=== PATIENT | male | born 1930 | race Caucasian/White ===

== ENCOUNTER 2016-10-18 20:24 | Inpatient (IN) | payer OTHER, MEDICAID ==
[~2016-10-18] VITALS: Ht 172.7 cm; Wt 75.0 kg
[2016-10-18 18:30] VITALS: Ht 172.7 cm; Wt 75.0 kg
--- NOTE | 2016-10-18 18:52 | RADRPT ---
PROCEDURE: XR Chest. CLINICAL INDICATION: Shortness of breath. TECHNIQUE: Single frontal view. COMPARISON: None. FINDINGS: The right lung is clear. There is air space disease throughout the left lung. There is elevation o f the left hemidiaphragm or a left diaphragmatic hernia. The heart size is normal. There is a tracheostomy tube. There is no pleural effusion. There is no pneumothorax. IMPRESSION: 1. Pneumonia throughout the left lung. 2. Elevation of the left hemidiaphragm or left diaphragmatic hernia. 3. Tracheostomy tube. RPTAT: QQ .To Galeana MD, MD Date Time Electronically viewed and signed by .To Galeana MD, on 10/18/2016 18:52 .R/
[2016-10-18 19:06] VITALS: TEMP 96.9
[2016-10-18 19:18] LABS: ADD SCAN DIFF NO
[2016-10-18 19:20] LABS: BASOPHIL # 0.1 10^3/ul (0.0-0.1); BASOPHILS % 0.3 % (0.0-2.0); EOSINOPHILS # 0.1 10^3/ul (0.0-0.5); EOSINOPHILS % 0.6 % (0.0-7.0); HEMATOCRIT 35.4 % (42.0-52.0); HEMOGLOBIN 10.7 g/dl (14.0-18.0); LYMPHOCYTES # 1.5 10^3/ul (0.8-2.9); LYMPHOCYTES % 8.4 % (15.0-51.0); MEAN CORPUSCULAR HEMOGLOBIN 28.5 pg (29.0-33.0); MEAN CORPUSCULAR HGB CONC 30.2 g/dl (32.0-37.0); MEAN CORPUSCULAR VOLUME 94.4 fl (82.0-101.0); MEAN PLATELET VOLUME 9.2 fl (7.4-10.4); MONOCYTE # 1.2 10^3/ul (0.3-0.9); MONOCYTES % 6.6 % (0.0-11.0); NEUTROPHIL # 14.8 10^3/ul (1.6-7.5); NEUTROPHILS % 83.1 % (39.0-77.0); PLATELET COUNT 414 10^3/UL (140-415); RED BLOOD COUNT 3.75 10^6/ul (4.70-6.10); RED CELL DISTRIBUTION WIDTH 17.2 % (11.5-14.5); WHITE BLOOD COUNT 17.8 10^3/ul (4.8-10.8)
[2016-10-18 19:33] LABS: ALBUMIN 2.8 g/dl (3.3-4.9); CHLORIDE 95 mmol/L (97-110)
[2016-10-18 19:34] LABS: POTASSIUM 4.3 mmol/L (3.5-5.1); SODIUM 136 mmol/L (135-144)
[2016-10-18 19:35] LABS: INR 1.1; PROTIME 14.2 Sec (12.2-14.2); PT RATIO 1.1
[2016-10-18 19:36] LABS: ALANINE AMINOTRANSFERASE 22 IU/L (13-69); ALBUMIN/GLOBULIN RATIO 0.66; ALKALINE PHOSPHATASE 103 IU/L (42-121); ANION GAP 15 (8-16); ASPARTATE AMINO TRANSFERASE 18 IU/L (15-46); BILIRUBIN,INDIRECT 0.1 mg/dl (0-1.1); BILIRUBIN,TOTAL 0.1 mg/dl (0.2-1.3); BLOOD UREA NITROGEN 25 mg/dl (7-20); CARBON DIOXIDE 30 mmol/L (21-31); CREATININE 0.49 mg/dl (0.61-1.24); PARTIAL THROMBOPLASTIN TIME 27.8 Sec (25.0-35.0)
[2016-10-18 19:37] LABS: CALCIUM 8.9 mg/dl (8.4-10.2); GLUCOSE 117 mg/dl (70-220)
[2016-10-18 19:56] LABS: TROPONIN-I < 0.012 ng/ml (0.00-0.12)
--- NOTE | 2016-10-18 20:21 | ERA ---
ER Documentation Chief Complaint Date/Time DATE: 10/18/16 TIME: 20:18 Chief Complaint bib ems for turning blue and being unresponsive at [facility] HPI Patient is an 86-year-old male with atrial fibrillation, COPD, stroke, and hypertension who presents with rest. The patient was brought in by ambulance. He had CPR performed by the nurse at the facility. He had turned blue and had no pulses for 60 seconds per the paramedics. Upon review of old medical records this is the patient's first visit to the emergency department. His primary doctor is Dr. Lawrence. Please note the history and physical exam is limited secondary to the patient's ability to give a history. ROS All systems reviewed and are negative except as per history of present illness. Medications Home Meds Reported Medications Tramadol Hcl* (Ultram*) 50 Mg Tablet, 50 MG GTB Q6 Y for SEVERE PAIN LEVEL 7-10 , TAB 10/18/16 Acetaminophen* (Acetaminophen*) 650 Mg Tablet, 650 MG GTB 30 MIN PRIOR Y for PAIN AND OR ELEVATED TEMP, #30 TAB 30 MIN PRIOR TO TRACH CHANGE 10/18/16 Acetaminophen* (Acetaminophen*) 650 Mg Tablet, 650 MG GTB Q4 Y for PAIN AND OR ELEVATED TEMP, #30 TAB 10/18/16 Acetaminophen* (Acetaminophen*) 650 Mg Tablet, 650 MG GTB BID Y for PAIN AND OR ELEVATED TEMP, #30 TAB 10/18/16 Cran/Vitc/Mannose/Inulin/Brom (Uti-Stat Liquid) 3,875 Mg/30 Ml Liquid, 3875 MG GTB DAILY 10/18/16 Ascorbic Acid* (Vitamin C* Liq) 500 Mg/5 Ml Syrup, 500 MG GTB DAILY, ML 10/18/16 Budesonide (Pulmicort) 0.5 Mg/2 Ml Nebu, 0.5 MG INHALATION BID, #60 AMP 10/18/16 Potassium Chloride* (Potassium Chloride*) 20 Meq/15 Ml Liquid, 20 MEQ GTB DAILY , ML 10/18/16 Chlorhexidine Gluconate (Peridex) 473 Ml Mouthwash, 15 ML MM Q12, BOTTLE 10/18/16 Clonidine Hcl* (Clonidine Hcl*) 0.1 Mg Tab, 0.1 MG GTB Q6 Y for ELEVATED BLOOD PRESSURE, TAB FOR SBP ABOVE 160 10/18/16 Docusate Sodium* (Colace*) 100 Mg Capsule, 100 MG GTB BID, #60 CAP 10/18/16 Bisacodyl (Dulcolax) 10 Mg Supp.rect, 10 MG RC PRN Y for CONSTIPATION, SUPP.RECT 10/18/16 Enoxaparin Sodium* (Enoxaparin Sodium*) 40 Mg/0.4 Ml Syringe, 40 MG SC DAILY, SYR 10/18/16 Na Phos,M-B/Na Phos,Di-Ba (ENEMA READY TO USE) 135 Ml Enema, 135 ML RC PRN Y for CONSTIPATION, ENEMA 10/18/16 Tamsulosin Hcl* (Flomax*) 0.4 Mg Cap.er.24h, 0.4 MG GTB DAILY, CAP 10/18/16 Furosemide* (Furosemide*) 20 Mg Tablet, 10 MG GTB DAILY, #60 TAB 10/18/16 Metoprolol Tartrate* (Lopressor*) 25 Mg Tab, 12.5 MG GTB BID, #60 TAB HOLD FOR SBP BELOW 110 OR HR BELOW 60 10/18/16 Magnesium Hydroxide* (Milk Of Magnesia*) 400 Mg/5 Ml Oral.susp, 30 ML GTB DAILY , ML 10/18/16 Calcium Carbonate/Vitamin D3 (OYSTER SHELL 500 MG + VIT D TB) 1 Each Tablet, 1 EACH GTB DAILY, TAB 10/18/16 Pantoprazole* (Protonix*) 40 Mg Tablet.dr, 40 MG GTB DAILY, TAB 10/18/16 Baclofen* (Baclofen*) 10 Mg Tablet, 5 MG GTB Q8 Y for MUSCLE SPASMS, TAB 10/18/16 Amlodipine Besylate* (Norvasc*) 5 Mg Tablet, 5 MG GTB DAILY, TAB 10/18/16 Amiodarone Hcl* (Amiodarone Hcl*) 200 Mg Tablet, 200 MG GTB DAILY, #30 TAB 10/18/16 Albuterol Sulfate* (Albuterol Sulfate* Neb) 0.083%-3 Ml Neb, 2.5 MG NEB Q6 Y for WHEEZING AND SOB, #30 VIAL 10/18/16 Albuterol Sulfate* (Albuterol Sulfate* Neb) 0.083%-3 Ml Neb, 2.5 MG NEB Q3H Y for WHEEZING AND SOB, #30 VIAL 10/18/16 Lactobac. No.33/B.breve,Longum (Lacto-Pectin Capsule) 1 Each Capsule, 1 EACH GTB BID, CAP 10/18/16 Allergies Allergies: Coded Allergies: morphine (Unverified Allergy, Unknown, PT FAMILY MEMBER [employer]YS [place] LOWE HAS IT LISTED A ALLERGY, 10/18/16) PMhx/Soc Positive for COPD, stroke, hypertension, and atrial fibrillation FmHx Unable to obtain Physical Exam Vitals Vital Signs Date Time Temp Pulse Resp B/P Pulse Ox O2 Delivery O2 Flow Rate FiO2 10/18/16 19:06 96.9 67 40 148/92 92 10.0 10/18/16 18:49 92 10.0 98 10/18/16 18:30 64 40 148/92 86 Physical Exam Const: No acute distress Head: Atraumatic Eyes: Normal Conjunctiva ENT: Normal External Ears, Nose and Mouth. Neck: Tracheostomy in place Resp: Decreased breath sounds on the left side Cardio: Regular rate and rhythm, no murmurs Abd: Soft, non tender, non distended. Normal bowel sounds Skin: Pale Back: No midline or flank tenderness Ext: No cyanosis, or edema Neur: Awake Result Diagram: 10/18/16 1855 10/18/16 185 Results 24 hrs Laboratory Tests Test 10/18/16 18:55 White Blood Count 17.810^3/ul Red Blood Count 3.7510^6/ul Hemoglobin 10.7g/dl Hematocrit 35.4% Mean Corpuscular Volume 94.4fl Mean Corpuscular Hemoglobin 28.5pg Mean Corpuscular Hemoglobin Concent 30.2g/dl Red Cell Distribution Width 17.2% Platelet Count 93762^3/UL Mean Platelet Volume 9.2fl Neutrophils % 83.1% Lymphocytes % 8.4% Monocytes % 6.6% Eosinophils % 0.6% Basophils % 0.3% Nucleated Red Blood Cells % 0.0/100WBC Neutrophils # 14.810^3/ul Lymphocytes # 1.510^3/ul Monocytes # 1.210^3/ul Eosinophils # 0.110^3/ul Basophils # 0.110^3/ul Nucleated Red Blood Cells # 0.010^3/ul Prothrombin Time 14.2Sec Prothrombin Time Ratio 1.1 INR International Normalized Ratio 1.10 Activated Partial Thromboplast Time 27.8Sec Sodium Level 136mmol/L Potassium Level 4.3mmol/L Chloride Level 95mmol/L Carbon Dioxide Level 30mmol/L Anion Gap 15 Blood Urea Nitrogen 25mg/dl Creatinine 0.49mg/dl Glucose Level 117mg/dl Lactic Acid Level 1.6mmol/L Calcium Level 8.9mg/dl Total Bilirubin 0.1mg/dl Direct Bilirubin 0.00mg/dl Indirect Bilirubin 0.1mg/dl Aspartate Amino Transf (AST/SGOT) 18IU/L Alanine Aminotransferase (ALT/SGPT) 22IU/L Alkaline Phosphatase 103IU/L Troponin I < 0.012ng/ml Total Protein 7.0g/dl Albumin 2.8g/dl Globulin 4.20g/dl Albumin/Globulin Ratio 0.66 Current Medications Medications (Trade) Dose Ordered Sig/Nishant Route PRN Reason Start Time Stop Time Status Last Admin Dose Admin Sodium Chloride 2330 ml 2,330 ml BOLUS OVER 2 HOURS STAT IV* 10/18/16 19:13 10/18/16 19:15 DC 10/18/16 20:15 Cefepime HCl 50 ml @ 100 mls/hr ONCE STAT IVPB 10/18/16 19:13 10/18/16 19:42 DC 10/18/16 20:15 Vancomycin HCl (Vancocin) 250 ml @ 125 mls/hr ONCE ONCE IVPB 10/18/16 19:30 10/18/16 21:29 Procedures/MDM EKG read by me: Rate/Rhythm: Regular rate and rhythm at a rate of 69 Intervals: Normal Impression: No evidence of ischemia or arrhythmia Chest x-ray shows left-sided pneumonia per radiology. Admit MDM: Patient's infectious symptoms have not stabilized and the patient is at risk of rapid decompensation. The patient will be admitted for careful hydration, antibiotic therapy, and infectious source control. Severe Sepsis criteria: Infectious source: Pneumonia End organ damage indicated by: Respiratory failure Sepsis Management: Time of recognition of sepsis: 18:52 Within 3 hours of recognition: Blood cultures x 2 before broad-spectrum antibiotics: Yes 30 ml/kg NS bolus Completed Initial lactate 1.6 Repeat lactate pending Time of recognition of septic shock: No septic shock Septic Shock Assessment: Any lactic acid > 4.0 No Persistent hypotension (SBP < 90 or 40 mmHg drop, MAP < 65) despite 30 mL/kg IV fluid bolus No Volume Re-assessment for Septic Shock (post 30 ml/kg bolus): No septic shock at this time Persistent Hypotension Treatment: Comfort care No Central line Not Required Vasopressor started Not required I considered further perfusion assessment with CVP measurement, SCVO2, bedside ultrasound volume assessment, passive leg raise, trial of further fluid bolus. And proceeded with 30 ml/kg fluid bolus of NSS, broad spectrum antibiotics, and admission. The patient was also placed on a ventilator and an ABG is obtained. Accepting Care Team Current data and ongoing care discussed. Admitting Physician: [facility] Double Spindle Shaper Operator(s): None Outstanding Data: Culture results and repeat lactic acid Critical Care: Critical care time 35 minutes excluding all billable procedures Emergent fluid management while maintaining close respiratory support. Provision of immediate and broad-spectrum antibiotic therapy. Simultaneous assessment for possible sources in order to direct targeted therapy. Consideration for invasive and chemical support to prevent cardiopulmonary collapse. Departure Diagnosis: Primary Impression: Respiratory failure Qualified Code: J96.00 - Acute respiratory failure, unspecified whether with hypoxia or hypercapnia Additional Impressions: Shortness of breath Severe sepsis Pneumonia Qualified Code: J18.9 - Pneumonia of left lung due to infectious organism, unspecified part of lung Anemia Qualified Code: D64.9 - Anemia, unspecified type Leukocytosis Qualified Code: D72.829 - Leukocytosis, unspecified type Condition: Serious KEEGAN CORMIER MD October 18, 2016 20:21
[~2016-10-18 20:24] MED LIST: ACET-2047 GTB; ALBU2.5V3 NEB; AMIO200T2 GTB; AMLO5TAB4 GTB; ASCO500S2 GTB; BACL10TA GTB; BISA10SU55 RC; BUDE0.5A6 INHALATION; CALC-277 GTB; CEFEPIME 2GM/50 ML (PMX) 50 ML IVPB STA; CHLO473M4 MM; CLON-379 GTB; CRAN3875 GTB; DOCU-144 GTB; ENOX40DI2 SC; FURO20TA3 GTB; LACT1CAP67 GTB; MAGN400O4 GTB; METO-448 GTB; NA P135E RC; PANT40TA3 GTB; POTA20LI5 GTB; SODIUM CHLORIDE 0.9% 1L BAG IV* STA; TAMS-14 GTB; TRAM-40 GTB; VANCOMYCIN 1 GM (PMX) 250 ML IVPB ONE
[2016-10-18] MEDS ORDERED: ONDANSETRON 4 MG INJ IV PRN (20:30)
[2016-10-18] MEDS ORDERED: ACETAMINOPHEN 325 MG TAB PO PRN (20:30)
[2016-10-18 21:00] LABS: Arterial Base Excess 3.5 mmol/L (-3.0-3); Arterial COHb 0.3 % (0.0-3.0); Arterial Fraction of Oxyhgb 96.8 % (93.0-99.0); Arterial HCO3 28.4 mmol/L (22.0-26.0); Arterial MetHb 0.3 % (0.0-1.5); Arterial Total Hemglobin 11.2 g/dl (12.0-18.0); MODE VENT - AC
[2016-10-18 21:27] LABS: ADD UMIC NO; URINE BILIRUBIN (Dip) NEGATIVE (NEGATIVE); URINE BLOOD (Dip) NEGATIVE (NEGATIVE); URINE COLOR LT. YELLOW (YELLOW); URINE GLUCOSE (Dip) NEGATIVE (NEGATIVE); URINE KETONES (Dip) NEGATIVE (NEGATIVE); URINE LEUKOCYTE ESTERASE (Dip) NEGATIVE (NEGATIVE); URINE NITRITE (Dip) NEGATIVE (NEGATIVE); URINE TOTAL PROTEIN (Dip) NEGATIVE (NEGATIVE); URINE UROBILINOGEN (Dip) 0.2 E.U./dL (0.1-1.0)
[2016-10-18 22:52] VITALS: PULSE 48
[2016-10-18] MEDS ORDERED: BISACODYL 10 MG SUPP PR PRN (23:00)
[2016-10-18] MEDS ORDERED: BACLOFEN 10 MG TAB GTB PRN (23:00)
[2016-10-18] MEDS ORDERED: NA PHOSPHATE/BIPHOS 133 ML ENEMA PR PRN (23:00)
[2016-10-18] MEDS ORDERED: ACETAMINOPHEN 325 MG TAB GTB PRN ×3 (23:00)
[2016-10-18] MEDS ORDERED: ALBUTEROL 0.083% (NEB) 2.5 MG/3 ML AMP NEB PRN ×2 (23:00)
[2016-10-18 23:38] VITALS: RESP 15
[2016-10-19] VITALS (26 sets, daily range): BP systolic 90–141; BP diastolic 50–72; PULSE 50–87; RESP 14–59
[2016-10-19] MEDS ORDERED: DEXTROSE 50% 50 ML SYRINGE IV PRN ×2 (00:30)
[2016-10-19] MEDS ORDERED: GLUCOSE GEL 15 GRAM TUBE BUCCAL PRN (00:30)
[2016-10-19] MEDS ORDERED: GLUCAGON 1 MG INJ IM PRN (00:30)
[2016-10-19] MEDS ORDERED: ACETAMINOPHEN 650MG/20.3ML CUP GTB PRN (00:30)
[2016-10-19] MEDS ORDERED: GLUCOSE GEL 15 GRAM TUBE PO PRN ×2 (00:30)
[2016-10-19] MEDS ORDERED: FUROSEMIDE 20 MG TAB GTB SCH ×2 (06:00)
[2016-10-19] MEDS: INSULIN ASPART [NOVOLOG] 3 ML PEN SC SCH ×4 (06:00→18:00)
[2016-10-19] MEDS: PANTOPRAZOLE (EC) 40 MG TAB PO SCH (06:23)
[2016-10-19] MEDS: PIPER-TAZO 3.375 GM IV (PMX) 100 ML IVPB SCH ×3 (06:23→21:27)
[2016-10-19 07:27] LABS: ADD SCAN DIFF NO
[2016-10-19 07:35] LABS: BASOPHIL # 0.1 10^3/ul (0.0-0.1); BASOPHILS % 0.4 % (0.0-2.0); EOSINOPHILS # 0.1 10^3/ul (0.0-0.5); EOSINOPHILS % 0.5 % (0.0-7.0); HEMATOCRIT 31.7 % (42.0-52.0); LYMPHOCYTES # 1.6 10^3/ul (0.8-2.9); LYMPHOCYTES % 10.5 % (15.0-51.0); MEAN CORPUSCULAR HEMOGLOBIN 29.3 pg (29.0-33.0); MEAN CORPUSCULAR HGB CONC 31.5 g/dl (32.0-37.0); MEAN PLATELET VOLUME 9.8 fl (7.4-10.4); MONOCYTE # 0.8 10^3/ul (0.3-0.9); MONOCYTES % 5.3 % (0.0-11.0); NEUTROPHIL # 12.3 10^3/ul (1.6-7.5); NEUTROPHILS % 82.1 % (39.0-77.0); PLATELET COUNT 386 10^3/UL (140-415); RED BLOOD COUNT 3.41 10^6/ul (4.70-6.10); RED CELL DISTRIBUTION WIDTH 17.1 % (11.5-14.5)
[2016-10-19 07:55] LABS: CREATININE 0.45 mg/dl (0.61-1.24)
[2016-10-19 07:56] LABS: CALCIUM 8.5 mg/dl (8.4-10.2)
[2016-10-19] MEDS ORDERED: POTASSIUM CHLORIDE 20 MEQ POWDER FOR ORAL SOLN GTB SCH (09:00)
[2016-10-19] MEDS: BUDESONIDE (NEB) 0.5MG/2ML AMP HHN SCH ×2 (09:00→20:00)
[2016-10-19] MEDS ORDERED: POTASSIUM CHLORIDE (1.33 MEQ/ML PO SYG) GTB SCH (09:00)
[2016-10-19] MEDS ORDERED: ASCORBIC ACID 100 MG/ML 120ML BTL GTB SCH (09:00)
[2016-10-19] MEDS ORDERED: NON-FORMULARY/PATIENT OWN MED (Cran/Vitc/Mannose/Inulin/Brom (Uti-Stat Liquid) 3,875 MG) GTB SCH (09:00)
[2016-10-19] MEDS: MAGNESIUM HYDROXIDE 30ML CUP GTB SCH (09:41)
[2016-10-19] MEDS: CHLORHEXIDINE GLUCONATE 15 ML UD CUP MM SCH ×2 (09:41→21:00)
[2016-10-19] MEDS: LACTOBACILLUS RHAMNOSUS CAP PO SCH ×2 (09:42→21:27)
[2016-10-19] MEDS: AMLODIPINE 5 MG TAB GTB SCH (09:42)
[2016-10-19] MEDS: AMIODARONE 200 MG TAB GTB SCH (09:42)
[2016-10-19] MEDS: METOPROLOL 25 MG TAB GTB SCH ×2 (09:43→21:00)
[2016-10-19] MEDS: ASCORBIC ACID 500 MG TAB GTB SCH (09:43)
[2016-10-19] MEDS: TAMSULOSIN (SR) 0.4 MG CAP PO SCH (09:44)
[2016-10-19] MEDS: ENOXAPARIN 40 MG/0.4 ML SYG SC SCH (09:53)
[2016-10-19] MEDS: NYSTATIN 30 GM POWDER BTL TOP SCH ×2 (11:00→21:27)
[2016-10-19] MEDS: traMADol 50 MG TAB GTB PRN (12:31)
--- NOTE | 2016-10-19 13:09 | HP ---
DATE OF ADMISSION: 10/18/2016 CHIEF COMPLAINT ON ADMISSION: Respiratory failure, acute on chronic. HISTORY OF PRESENT ILLNESS: This is an 86-year-old male with known paroxysmal atrial fibrillation, COPD, severe cervical stenosis status post multilevel decompressive laminectomy at [facility] who unfortunately ended up having respiratory failure requiring tracheostomy and jejunostomy tu be placement, history of TIA, pulmonary emboli, and pneumothorax previously who apparently has been at a subacute facility in [place], per the records, was admitted there on 09/29/2016, and yesterd dell was found to be in acute on chronic respiratory failure. He actually had a respiratory arrest re quiring CPR that was done. Per records, the patient was severely cyanotic, no pulse for approximate ly 1 minute per paramedics. The patient was resuscitated, placed on the ventilator, and transferred to [facility]. On his evaluation here, he was found to have leukocytosis and also on his chest x-ray, he has a left white lung white out. He was diagnosed with pneumonia and acute on chron ic respiratory failure. He was admitted on telemetry currently. This morning, he is awake. He is alert. He is mouthing some words. He reports pain. He has to be put on restraints because he has a tendency to reach for the trach. He has a C-spine collar in place. His respiratory status seems to be stable on the ventilator currently. A CT of the chest is pending, given his history of PE bef ore pneumothorax and now a left lung white out. He is on broad-spectrum antibiotics to cover for he althcare-associated or ventilator-associated pneumonia. He is on Zosyn and vancomycin currently. H e remains afebrile. ALLERGIES: MORPHINE. PAST MEDICAL HISTORY: 1. Chronic respiratory failure, status post tracheostomy and jejunostomy tube placement at [facility]. 2. Paroxysmal atrial fibrillation. 3. Hypertension. 4. Severe cervical stenosis status post cervical spine decompressive laminectomy, multilevel, also at [facility], apparently in the past month. 5. Previous pulmonary embolus and pneumothorax which is resolved. This is per [facility] records. 6. Benign prostatic hypertrophy. 7. Reported history of prostate cancer. 8. Chronic obstructive pulmonary disease. PAST SURGICAL HISTORY: Per report again from [facility] facility medical records: 1. Multilevel decompressive laminectomy. 2. PEG tube placement. 3. Status post tracheostomy. SOCIAL HISTORY: Unable to obtain from patient currently. REVIEW OF SYSTEMS: Unable to obtain from patient. He keeps mouthing pain. OUTPATIENT MEDICATIONS: 1. Albuterol nebulizer 2.5 mg q.3 hours p.r.n. wheezing or shortness of breath, and 2.5 mg schedule d every 6 hours. 2. Baclofen 5 mg q.8 hours. 3. Flomax 0.5 mg per G-tube daily. 4. Lovenox 40 mg subcutaneously daily. 5. Amiodarone 200 mg per G-tube daily. 6. Norvasc 5 mg per G-tube daily. 7. Clonidine 0.1 mg per G-tube every 6 hours as needed for systolic blood pressure above 160. 8. Lopressor 12.5 mg per G-tube twice daily. 9. Tylenol 650 mg per G-tube every 4 hours as needed for fever or pain. 10. Tramadol 50 mg p.o. q.6 hours p.r.n. severe pain. 11. Calcium vitamin D 1 tab p.o. daily. 12. Furosemide 10 mg per G-tube daily. 13. Potassium chloride 20 mEq per G-tube daily. 14. Pulmicort 0.5 mg inhaled twice daily. 15. Peridex q.12 hours. 16. Dulcolax 10 mg per rectum as needed for constipation daily. 17. Colace 100 mg per G-tube twice daily. 18. Lactobacillus 1 tab p.o. per G-tube twice daily. 19. Milk of magnesia 30 mL per G-tube daily. 20. Enema rectally as needed daily for constipation. 21. Protonix 40 mg per G-tube daily. 22. Vitamin C 500 mg per G-tube daily. 23. Uristat liquid daily. PHYSICAL EXAMINATION: VITAL SIGNS: Temperature is 97.5, pulse of 75, sinus rhythm, respiratory rate of 20, blood pressure is 141/72. The patient is satting 98% on 50% FIO2 on the vent. GENERAL: He is alert. He is awake. He seems to be answering questions appropriately, at least tri es to. HEENT: Pupils are equally round and reactive to light. Extraocular muscles are intact. Anicteric sclerae. NECK: No JVD noted; however, the patient does have a C-collar in place currently with a tracheostom y in place. LUNGS: He does have significant decreased breath sounds on the left side. Air movement is decent, but the patient is currently on ventilator. ABDOMEN: Soft, nontender, nondistended. PEG tube in place, tolerating feedings. EXTREMITIES: No edema, clubbing or cyanosis. 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 He is not really following com mands, but moving all his extremities and especially his upper extremity requiring restraints to be placed. Otherwise, he is mostly bed bound. LABORATORY DATA: ABG on admission did show some hypoxemia, pH of 7.42, pCO2 of 44, PaO2 of 98.9, by then the patient was already on the ventilator with FIO2 of 50%. CBC with a white blood cell count of 15.0, hemoglobin 10.0, hematocrit 31.7, platelet count of 388, and neutrophil percentage is 82.1 %. INR is 1.10, PT 14.2, PTT 27.8. Chemistry with a sodium of 135, potassium 4.0, chloride 100, bi carbonate 27, BUN 21, creatinine 0.45, glucose of 111, calcium of 8.5. Urinalysis is negative. Blo od cultures have been drawn and pending, respiratory cultures are pending. Urine culture is no grow th to date. RADIOLOGICAL DATA: Chest x-ray on admission shows pneumonia throughout the left lung, elevation of the left hemidiaphragm, or left diaphragmatic hernia. Tracheostomy tube in place. CT angiogram of the chest is pending for better evaluation. EKG on admission shows normal sinus rhythm at 69 beats per minute. He is also in normal sinus rhyth m on telemetry, currently, but he is noted to have episodes of bradycardia down to upper 40s. ASSESSMENT AND PLAN: This is an 86-year-old male with: 1. Acute on chronic respiratory failure, actually had episode of respiratory arrest requiring CPR, but rapidly resuscitated within 1 minute. The patient is currently on the ventilator. Will recheck his ABG in the next [address] angiogram is done and further adjustment to be done from there. Continue nebulizer treatment. Continue antibiotic treatment. Follow up on respiratory cult ures and continue pulmonary toilet. 2. Chronic obstructive pulmonary disease per record. Continue nebulizer treatments for now and the patient already on ventilatory support. 3. Paroxysmal atrial fibrillation, currently in sinus rhythm. He is on amiodarone which is to be c ontinued, and metoprolol is also continued as tolerated by blood pressure and heart rate. He also h as clonidine added p.r.n. 4. Status post cervical spine decompressive laminectomy, multilevel. The patient unfortunately is quadriparetic, status post respiratory failure, now trached, on ventilator. Will resume physical th erapy once the patient is more stable, apparently he was having some element of physical therapy at [facility] facility. He has a cervical collar in place. Per records from SNF, the patient has it removed when eating and also when bathing and also for skin check which will be continued here. Will clarify the length of time the cervical collar needs to stay in place with the [facility] facility staff. 4. Status post PEG tube placement for feeding. Continue G-tube feeding. Will add free water as ne eded. 5. Benign prostatic hypertrophy. Continue Flomax. Will put a Mireles catheter as needed. 6. Reported history of prostate cancer. 7. Per [facility] facility, previous pulmonary embolus and pneumothorax resolved. It is uncle ar which side. CT angiogram is pending for reevaluation and also will clarify with [facility] facility. Currently, the patient is on Lovenox DVT prophylactic doses. 8. Leukocytosis, likely secondary to hospital-acquired pneumonia versus ventilatory-associated pneu monia based on the chest x-ray with a left lung white out. Follow up on the CT angiogram. Continue IV antibiotics. 9. Pneumonia, likely healthcare-associated pneumonia versus ventilator-associated pneumonia. Hopef ully, not a major obstruction will be seen. CT angiogram pending for further evaluation. Will cons ult pulmonary as needed. 10. Prophylaxis. Protonix for GI prophylaxis and Lovenox for deep venous thrombosis prophylaxis fo r now until we clarify if the patient needs treatment dose. DISPOSITION: Patient is admitted to telemetry inpatient, continue IV antibiotics. Follow up on CAT scan of the chest. Dictated By: BETTINA GE/JING Conf#: [id number] DID#: [id number]
[2016-10-19] MEDS: VANCOMYCIN 1.5 GM in SOD CHLORIDE 0.9% 250 ML IVPB SCH (15:30)
[2016-10-19] MEDS ORDERED: VANCOMYCIN 1 GM (PMX) 250 ML IVPB SCH (23:00)
[2016-10-20] VITALS (38 sets, daily range): BP systolic 92–139; BP diastolic 50–75; PULSE 60–96; RESP 14–22
[2016-10-20] MEDS ORDERED: IOHEXOL 300MG/ML 150 ML BTL ONE (00:21)
[2016-10-20] MEDS ORDERED: SOD CHLORIDE 0.9% 100 ML ONE (00:21)
--- NOTE | 2016-10-20 03:16 | RADRPT ---
PROCEDURE: CTA Chest CLINICAL INDICATION: Respiratory failure. Shortness of breath. Left lung pneumonia. TECHNIQUE: Thin section spiral CT images were obtained through the vasculature of the chest during administration of 100 cc of Omnipaque-300 contrast material. Multiplanar reconstructions and 3-D m aximum intensity projection reconstructed images were performed. The images were reviewed on a PACS workstation. The total exam CTDI equals 11.14 mGy, and the total exam DLP equals 503.69 mGy-cm. One or more of the following dose reduction techniques were used: automated exposure control, adjust ment of the mA and/or kV according to patient size, or use of iterative reconstruction technique. COMPARISON: Chest x-ray from 10/18 FINDINGS: Endotracheal tube remains in good position. There are emphysematous changes of the lungs with hyperi nflation and hyperlucency is bilaterally. Left greater than right bibasilar atelectasis or infiltra phuong and small layering left pleural effusion. Left lung aeration appears improved compared with 7. Large linear opacity in the left upper lobe likely represents linear subsegmental atelectasis. B iapical scarring is seen. No definite endobronchial lesion or bronchiectasis. Aortic and coronary artery calcification. Tiny pericardial effusion. There is no evidence for pulmonary embolus or aor tic dissection. Mild cardiomegaly. Postsurgical changes of the cervical spine are partially seen. Old right rib fracture. Degenerative change of the spine. IMPRESSION: No evidence for pulmonary embolus or aortic dissection. Emphysema and left greater than right basil ar atelectasis or infiltrates and small layering left pleural effusion. Linear probable subsegmenta l atelectasis in the left upper lobe. Overall improved aeration of the left lung compared with 0 7. RPTAT: HLBE Physician Yanni Date Time Electronically viewed and signed by Physician Yanni on 10/20/2016 03:15 [email or web address]/
[2016-10-20] MEDS: INSULIN ASPART [NOVOLOG] 3 ML PEN SC SCH ×4 (05:09→17:48)
[2016-10-20] MEDS: PIPER-TAZO 3.375 GM IV (PMX) 100 ML IVPB SCH ×3 (05:09→21:12)
[2016-10-20] MEDS: PANTOPRAZOLE (EC) 40 MG TAB PO SCH (05:09)
[2016-10-20 06:54] LABS: ADD SCAN DIFF NO; BASOPHILS % 0.3 % (0.0-2.0); EOSINOPHILS # 0.4 10^3/ul (0.0-0.5); EOSINOPHILS % 3.4 % (0.0-7.0); HEMATOCRIT 30.3 % (42.0-52.0); HEMOGLOBIN 9.6 g/dl (14.0-18.0); LYMPHOCYTES # 1.2 10^3/ul (0.8-2.9); LYMPHOCYTES % 9.5 % (15.0-51.0); MEAN CORPUSCULAR HEMOGLOBIN 29.3 pg (29.0-33.0); MEAN CORPUSCULAR HGB CONC 31.7 g/dl (32.0-37.0); MEAN CORPUSCULAR VOLUME 92.4 fl (82.0-101.0); MEAN PLATELET VOLUME 9.2 fl (7.4-10.4); MONOCYTE # 0.7 10^3/ul (0.3-0.9); MONOCYTES % 5.4 % (0.0-11.0); NEUTROPHIL # 10.3 10^3/ul (1.6-7.5); NEUTROPHILS % 79.7 % (39.0-77.0); PLATELET COUNT 325 10^3/UL (140-415); RED BLOOD COUNT 3.28 10^6/ul (4.70-6.10); RED CELL DISTRIBUTION WIDTH 17.2 % (11.5-14.5); WHITE BLOOD COUNT 12.9 10^3/ul (4.8-10.8)
[2016-10-20 07:17] LABS: POTASSIUM 4.2 mmol/L (3.5-5.1)
[2016-10-20 07:19] LABS: CREATININE 0.55 mg/dl (0.61-1.24)
[2016-10-20 07:20] LABS: CALCIUM 8.3 mg/dl (8.4-10.2)
[2016-10-20 07:22] LABS: PHOSPHORUS 2.9 mg/dl (2.5-4.9)
[2016-10-20] MEDS: CHLORHEXIDINE GLUCONATE 15 ML UD CUP MM SCH ×2 (08:40→21:00)
[2016-10-20] MEDS: TAMSULOSIN (SR) 0.4 MG CAP PO SCH (08:40)
[2016-10-20] MEDS: MAGNESIUM HYDROXIDE 30ML CUP GTB SCH (08:40)
[2016-10-20] MEDS: ASCORBIC ACID 500 MG TAB GTB SCH (08:41)
[2016-10-20] MEDS: LACTOBACILLUS RHAMNOSUS CAP PO SCH ×2 (08:41→21:12)
[2016-10-20] MEDS: ENOXAPARIN 40 MG/0.4 ML SYG SC SCH (08:42)
[2016-10-20] MEDS: AMIODARONE 200 MG TAB GTB SCH (08:43)
[2016-10-20] MEDS: AMLODIPINE 5 MG TAB GTB SCH (08:44)
[2016-10-20] MEDS: METOPROLOL 25 MG TAB GTB SCH ×2 (08:44→21:11)
[2016-10-20] MEDS: NYSTATIN 30 GM POWDER BTL TOP SCH ×2 (08:45→21:12)
[2016-10-20] MEDS: BUDESONIDE (NEB) 0.5MG/2ML AMP HHN SCH ×2 (09:00→20:05)
--- NOTE | 2016-10-20 11:46 | PN ---
Date/Time of Note Date/Time of Note DATE: 10/20/16 TIME: 11:45 Assessment/Plan VTE Prophylaxis VTE Prophylaxis Intervention: LMWH Lines/Catheters IV C[facility]ter [facility] (from [facility] Saline Lock Urinary Cath still in place: No Assessment/Plan Assessment/Plan 86-year-old male with: 1. Acute on chronic respiratory failure, actually had episode of respiratory arrest requiring CPR, but rapidly resuscitated within 1 minute at [facility] CT angiogram negative for PE Continue nebulizer treatment. Continue antibiotic treatment. Follow up on respiratory cultures and continue aggressive pulmonary toilet. 2. Healthcare-associated Pneumonia versus ventilator-associated pneumonia. CTA negative for PE and confirming atelectasis +PNA Pulmonary toilet and IV abx to be continued Will consult pulmonary as needed. 3. Chronic obstructive pulmonary disease also seen on CTA chest at least moderate to severe COPD Continue nebulizer treatments Already on ventilatory support. 4. Paroxysmal atrial fibrillation, currently in sinus rhythm. In SR and on Amiodarone and metoprolol. 5. Status post cervical spine decompressive laminectomy, multilevel, C2 -C7 laminectomy and C2-T2 posterior fusion Unfortunately quadriparetic, status post respiratory failure, now trached, on ventilator. Resume physical therapy once the patient is more stable, Continue cervical collar, per records from SNF, the patient has it removed when eating and also when bathing and also for skin check which will be continued here. Will clarify the length of time the cervical collar needs to stay in place with the [facility] facility staff. 6. Status post PEG tube placement for feeding. Continue Tube feeding. Add free water as needed. 7. Benign prostatic hypertrophy. Continue Flomax. 8. Reported history of prostate cancer. 9. Per [facility] facility, previous pulmonary embolus and pneumothorax resolved. It is unclear which side. CT angiogram chest negative for PE Continue Lovenox DVT prophylactic doses. Prophylaxis. Protonix for GI prophylaxis and Lovenox for deep venous thrombosis prophylaxis. DISPOSITION: Continue IV antibiotics and Pulmonary toilet D/c plan back to subacute in 24 to 48 hrs. Subjective 24 Hr Interval Summary Free Text/Dictation Patient much improved No PE on CTA and confirming L>R atelectasis +/- infiltrates Afebrile and WBC trending down D/c plan back to SNF in 24 to 48 hrs Exam/Review of Systems Vital Signs Vitals Vital Signs Date Time Temp Pulse Resp B/P Pulse Ox O2 Delivery O2 Flow Rate FiO2 10/20/16 10:07 98.4 84 18 131/60 98 10/20/16 09:45 50 10/20/16 06:20 Trach Collar 10/18/16 19:06 10.0 Intake and Output 10/19/16 10/19/16 10/20/16 15:00 23:00 07:00 Intake Total 460 ml 660 ml Balance 460 ml 660 ml Exam Constitutional: alert, other (quadriparetic and attempting to talk even with trach in place ) Respiratory: diminished breath sounds (L>R lung ) Cardiovascular: nl pulses, regular rate and rhythm Gastrointestinal: non-tender, soft Musculoskeletal: nl extremities to inspection Extremities: normal pulses, other (no edema, clubbing or cyanosis ) Neurological: MEDICAL SUPPORT ASSISTANT II-XII intact, other (quadriparesis ) Results Result Diagram: 10/20/16 0644 10/20/16 0644 Results 24 hrs Laboratory Tests Test 10/19/16 12:01 10/19/16 18:24 10/20/16 00:11 10/20/16 05:07 Bedside Glucose 109 109 106 83 Test 10/20/16 06:44 White Blood Count 12.9 H Red Blood Count 3.28 L Hemoglobin 9.6 L Hematocrit 30.3 L Mean Corpuscular Volume 92.4 Mean Corpuscular Hemoglobin 29.3 Mean Corpuscular Hemoglobin Concent 31.7 L Red Cell Distribution Width 17.2 H Platelet Count 325 Mean Platelet Volume 9.2 Neutrophils % 79.7 H Lymphocytes % 9.5 L Monocytes % 5.4 Eosinophils % 3.4 Basophils % 0.3 Nucleated Red Blood Cells % 0.0 Neutrophils # 10.3 H Lymphocytes # 1.2 Monocytes # 0.7 Eosinophils # 0.4 Basophils # 0.0 Nucleated Red Blood Cells # 0.0 Sodium Level 133 L Potassium Level 4.2 Chloride Level 99 Carbon Dioxide Level 25 Anion Gap 13 Blood Urea Nitrogen 19 Creatinine 0.55 L Glucose Level 82 Hemoglobin A1c 5.3 Calcium Level 8.3 L Phosphorus Level 2.9 Magnesium Level 2.0 Medications Medications Current Medications Amiodarone HCl (Cordarone) 200 mg DAILY GTB Last administered on 10/19/16t 09:42 ; Admin Dose 200 MG; Start 10/19/16 at 09:00 Amlodipine Besylate (Norvasc) 5 mg DAILY GTB Last administered on 10/19/16 09: 42; Admin Dose 5 MG; Start 10/19/16 at 09:00 Baclofen (Lioresal) 5 mg Q8 PRN GTB MUSCLE SPASMS; Start 10/18/16 at 23:00 Bisacodyl (Dulcolax Supp) 10 mg PRN PRN CA CONSTIPATION; Start 10/18/16 at 23:00 Chlorhexidine Gluconate (Peridex) 15 ml Q12 MM Last administered on 10/20/16 08 :40; Admin Dose 15 ML; Start 10/19/16 at 09:00 Clonidine (Catapres) 0.1 mg Q6 PRN GTB ELEVATED BLOOD PRESSURE>150; Start at 23:00 Enoxaparin Sodium (Lovenox) 40 mg DAILY SC Last administered on 10/20/16 08:42 ; Admin Dose 40 MG; Start 10/19/16 at 09:00 Magnesium Hydroxide (Milk Of Mag) 30 ml DAILY GTB Last administered on 08:40; Admin Dose 30 ML; Start 10/19/16 at 09:00 Metoprolol Tartrate (Lopressor) 12.5 mg BID GTB Last administered on 10/19/16 09:43; Admin Dose 12.5 MG; Start 10/19/16 at 09:00 Sodium Biphosphate/ Sodium Phosphate (Fleet Enema) 133 ml DAILY PRN CA CONSTIPATION; Start 10/18/16 at 23:00 Pantoprazole (Protonix Tab) 40 mg DAILY@06 PO Last administered on 10/20/16 05: 09; Admin Dose 40 MG; Start 10/19/16 at 06:00 Tamsulosin HCl (Flomax) 0.4 mg DAILY PO Last administered on 10/20/16 08:40; Admin Dose 0.4 MG; Start 10/19/16 at 09:00 Tramadol HCl (Ultram) 50 mg Q6 PRN GTB SEVERE PAIN LEVEL 7-10 Last administered on 10/19/16 12:31; Admin Dose 50 MG; Start 10/18/16 at 23:00 Lactobacillus Acidophilus/ Rhamnosus 1 cap 1 cap BID PO Last administered on 08:41; Admin Dose 1 CAP; Start 10/19/16 at 09:00 Piperacillin Sod/ Tazobactam Sod (Zosyn 3.375gm/ 100 ml (Pmx)) 100 ml @ 200 mls /hr Q8 IVPB Last administered on 10/20/16 05:09; Admin Dose 200 MLS/HR; Start 10/19/16 at 06:00 Insulin Aspart (Novolog Insulin Pen) NOVOLOG *MODERATE* ALGORI... Q6 SC ; Start 10/19/16 at 00:00 Miscellaneous Information 1 ea NOTE XX ; Start 10/19/16 at 00:30 Glucose (Glutose) 15 gm Q15M PRN PO DECREASED GLUCOSE; Start 10/19/16 at 00:30 Glucose (Glutose) 22.5 gm Q15M PRN PO DECREASED GLUCOSE; Start 10/19/16 at 00:30 Dextrose (D50w Syringe) 25 ml Q15M PRN IV DECREASED GLUCOSE; Start 10/19/16 at 00:30 Dextrose (D50w Syringe) 50 ml Q15M PRN IV DECREASED GLUCOSE; Start 10/19/16 at 00:30 Glucagon (Glucagen) 1 mg Q15M PRN IM DECREASED GLUCOSE; Start 10/19/16 at 00:30 Glucose (Glutose) 15 gm Q15M PRN BUCCAL DECREASED GLUCOSE; Start 10/19/16 at 00: 30 Acetaminophen (Tylenol Liquid) 650 mg Q4H PRN GTB PAIN OR ELEVATED TEMP.; Start 10/19/16 at 00:30 Ascorbic Acid 500 mg 500 mg DAILY GTB Last administered on 10/20/16 08:41; Admin Dose 500 MG; Start 10/19/16 at 09:00 Vancomycin HCl/ Sodium Chloride (Vancocin/NS) 250 ml @ 83.333 mls/ hr Q24H IVPB Last administered on 10/19/16 15:30; Admin Dose 83.333 MLS/HR; Start at 13:00 Nystatin (Nystatin Powder) 1 applic BID TOP Last administered on 10/20/16 08:45 ; Admin Dose 1 APPLIC; Start 10/19/16 at 11:00 Miscellaneous Information (*Rx Drug Level Order Reminder*) 1 ONCE ONCE XX ; Start 10/21/16 at 12:00; Stop 10/21/16 at 12:01 Procedures Procedures PROCEDURE: CTA Chest CLINICAL INDICATION: Respiratory failure. Shortness of breath. Left lung pneumonia. TECHNIQUE: Thin section spiral CT images were obtained through the vasculature of the chest during administration of 100 cc of Omnipaque-300 contrast material. Multiplanar reconstructions and 3-D maximum intensity projection reconstructed images were performed. The images were reviewed on a PACS workstation. The total exam CTDI equals 11.14 mGy, and the total exam DLP equals 503.69 mGy-cm. One or more of the following dose reduction techniques were used: automated exposure control, adjustment of the mA and/or kV according to patient size, or use of iterative reconstruction technique. COMPARISON: Chest x-ray from 10/18 FINDINGS: Endotracheal tube remains in good position. There are emphysematous changes of the lungs with hyperinflation and hyperlucency is bilaterally. Left greater than right bibasilar atelectasis or infiltrates and small layering left pleural effusion. Left lung aeration appears improved compared with 10/18. Large linear opacity in the left upper lobe likely represents linear subsegmental atelectasis. Biapical scarring is seen. No definite endobronchial lesion or bronchiectasis. Aortic and coronary artery calcification. Tiny pericardial effusion. There is no evidence for pulmonary embolus or aortic dissection. Mild cardiomegaly. Postsurgical changes of the cervical spine are partially seen. Old right rib fracture. Degenerative change of the spine. IMPRESSION: No evidence for pulmonary embolus or aortic dissection. Emphysema and left greater than right basilar atelectasis or infiltrates and small layering left pleural effusion. Linear probable subsegmental atelectasis in the left upper lobe. Overall improved aeration of the left lung compared with 10/18. BETTINA ROSE October 20, 2016 11:46
[2016-10-20] MEDS: VANCOMYCIN 1.5 GM in SOD CHLORIDE 0.9% 250 ML IVPB SCH (12:29)
[2016-10-21] VITALS (30 sets, daily range): BP systolic 110–157; BP diastolic 59–86; PULSE 64–83; RESP 14–25
[2016-10-21] MEDS: PIPER-TAZO 3.375 GM IV (PMX) 100 ML IVPB SCH ×3 (05:27→21:14)
[2016-10-21] MEDS: INSULIN ASPART [NOVOLOG] 3 ML PEN SC SCH ×5 (05:27→23:59)
[2016-10-21] MEDS: PANTOPRAZOLE (EC) 40 MG TAB PO SCH (05:27)
[2016-10-21 08:02] LABS: ADD SCAN DIFF NO
[2016-10-21 08:05] LABS: BASOPHILS % 0.3 % (0.0-2.0); EOSINOPHILS # 0.3 10^3/ul (0.0-0.5); EOSINOPHILS % 2.9 % (0.0-7.0); HEMATOCRIT 29.5 % (42.0-52.0); HEMOGLOBIN 9.2 g/dl (14.0-18.0); LYMPHOCYTES # 1.7 10^3/ul (0.8-2.9); LYMPHOCYTES % 15.5 % (15.0-51.0); MEAN CORPUSCULAR HEMOGLOBIN 29.1 pg (29.0-33.0); MEAN CORPUSCULAR HGB CONC 31.2 g/dl (32.0-37.0); MEAN CORPUSCULAR VOLUME 93.4 fl (82.0-101.0); MEAN PLATELET VOLUME 9.8 fl (7.4-10.4); MONOCYTE # 0.9 10^3/ul (0.3-0.9); MONOCYTES % 7.6 % (0.0-11.0); NEUTROPHIL # 8.1 10^3/ul (1.6-7.5); NEUTROPHILS % 72.4 % (39.0-77.0); PLATELET COUNT 329 10^3/UL (140-415); RED BLOOD COUNT 3.16 10^6/ul (4.70-6.10); RED CELL DISTRIBUTION WIDTH 17.4 % (11.5-14.5); WHITE BLOOD COUNT 11.2 10^3/ul (4.8-10.8)
[2016-10-21 08:32] LABS: CALCIUM 8.5 mg/dl (8.4-10.2); CREATININE 0.5 mg/dl (0.61-1.24); POTASSIUM 4.1 mmol/L (3.5-5.1)
[2016-10-21 08:33] LABS: PHOSPHORUS 3.2 mg/dl (2.5-4.9)
[2016-10-21] MEDS: MAGNESIUM HYDROXIDE 30ML CUP GTB SCH (09:00)
[2016-10-21] MEDS: BUDESONIDE (NEB) 0.5MG/2ML AMP HHN SCH ×3 (09:00→20:00)
[2016-10-21] MEDS: CHLORHEXIDINE GLUCONATE 15 ML UD CUP MM SCH ×2 (09:33→20:49)
[2016-10-21] MEDS: AMIODARONE 200 MG TAB GTB SCH (09:34)
[2016-10-21] MEDS: ASCORBIC ACID 500 MG TAB GTB SCH (09:34)
[2016-10-21] MEDS: METOPROLOL 25 MG TAB GTB SCH ×2 (09:34→20:52)
[2016-10-21] MEDS: LACTOBACILLUS RHAMNOSUS CAP PO SCH (09:34)
[2016-10-21] MEDS: TAMSULOSIN (SR) 0.4 MG CAP PO SCH (09:34)
[2016-10-21] MEDS: NYSTATIN 30 GM POWDER BTL TOP SCH ×2 (09:35→20:53)
[2016-10-21] MEDS: AMLODIPINE 5 MG TAB GTB SCH (09:37)
[2016-10-21] MEDS: ENOXAPARIN 40 MG/0.4 ML SYG SC SCH (09:46)
--- NOTE | 2016-10-21 10:36 | PN ---
Date/Time of Note Date/Time of Note DATE: 10/21/16 TIME: 10:16 Assessment/Plan VTE Prophylaxis VTE Prophylaxis Intervention: LMWH Lines/Catheters IV Catheter Type (from [facility]): Saline Lock Urinary Cath still in place: No Assessment/Plan Assessment/Plan 86-year-old male with: 1. Acute on chronic respiratory failure, actually had episode of respiratory arrest requiring CPR, but rapidly resuscitated within 1 minute at [facility] CT angiogram negative for PE Continue nebulizer treatment. Continue antibiotic treatment. Follow up on respiratory cultures Continue aggressive pulmonary toilet and frequent suctioning to manage secretions. 2. Healthcare-associated Pneumonia versus ventilator-associated pneumonia. CTA negative for PE and confirming atelectasis +PNA Pulmonary toilet and IV abx to be continued Follow up respiratory cx results for now with [facility] GNR per prelim Will consult pulmonary as needed. 3. Chronic obstructive pulmonary disease also seen on CTA chest at least moderate to severe COPD Continue nebulizer treatments Already on ventilatory support s/p trach 4. Paroxysmal atrial fibrillation, currently in sinus rhythm. In SR and on Amiodarone and metoprolol. 5. Status post cervical spine decompressive laminectomy, multilevel, C2 -C7 laminectomy and C2-T2 posterior fusion Unfortunately quadriparetic, status post respiratory failure, now trached, on ventilator. Resume physical therapy once the patient is more stable, Continue cervical collar, per records from [facility], the patient has it removed when eating and also when bathing and also for skin check which will be continued here. Will clarify the length of time the cervical collar needs to stay in place with the intermediate facility staff. 6. Status post PEG tube placement for feeding. Continue Tube feeding and free water. Monitor electrolytes, Na closely 7. Benign prostatic hypertrophy. Continue Flomax. 8. Reported history of prostate cancer. 9. Per intermediate facility, previous pulmonary embolus and pneumothorax resolved. It is unclear which side. CT angiogram chest negative for PE Continue Lovenox DVT prophylactic doses. Prophylaxis. Protonix for GI prophylaxis and Lovenox for deep venous thrombosis prophylaxis. DISPOSITION: Continue IV antibiotics and Pulmonary toilet D/c plan in 48 hrs hopefully, per Son insisting to have him at [place]... Subjective 24 Hr Interval Summary Free Text/Dictation Patient doing better clinically but lost of secretions still, discussed with RT having to suction up to q30 mins so far and FiO2 requirement of 50% Updated son and he is requesting for patient to go to [place] and absolutely refusing any other placements and would appeal if he has too at time of discharge. Complaining of neck pain and shoulder pain. Exam/Review of Systems Vital Signs Vitals Vital Signs Date Time Temp Pulse Resp B/P Pulse Ox O2 Delivery O2 Flow Rate FiO2 10/21/16 10:00 98.3 79 17 128/67 100 10/21/16 08:56 50 10/21/16 06:02 Mechanical Ventilator Trach Collar 10/18/16 19:06 10.0 Intake and Output 10/20/16 10/20/16 10/21/16 15:00 23:00 07:00 Intake Total 560 ml 660 ml Balance 560 ml 660 ml Exam Constitutional: alert, frail, oriented (x2 to 3), other (trached and on Vent currently 50% FiO2 ) Respiratory: diminished breath sounds (left lung > right ), other (on Vent ) Cardiovascular: nl pulses, regular rate and rhythm Gastrointestinal: non-tender, other (on TF and free H2O, well tolerated ), soft Musculoskeletal: nl extremities to inspection Extremities: normal pulses, other (no edema, clubbing or cyanosis ) Neurological: LEADERSHIP INTERN II-XII intact, nl mental status, other (trach affecting speech ) Results Result Diagram: 10/21/1662110/21/16621 Results 24 hrs Laboratory Tests Test 10/20/16 11:56 10/20/16 17:47 10/21/16 00:43 10/21/16 05:25 Bedside Glucose 102 95 109 104 Test 10/21/16 06:22 White Blood Count 11.2 H Red Blood Count 3.16 L Hemoglobin 9.2 L Hematocrit 29.5 L Mean Corpuscular Volume 93.4 Mean Corpuscular Hemoglobin 29.1 Mean Corpuscular Hemoglobin Concent 31.2 L Red Cell Distribution Width 17.4 H Platelet Count 329 Mean Platelet Volume 9.8 Neutrophils % 72.4 Lymphocytes % 15.5 Monocytes % 7.6 Eosinophils % 2.9 Basophils % 0.3 Nucleated Red Blood Cells % 0.0 Neutrophils # 8.1 H Lymphocytes # 1.7 Monocytes # 0.9 Eosinophils # 0.3 Basophils # 0.0 Nucleated Red Blood Cells # 0.0 Sodium Level 131 L Potassium Level 4.1 Chloride Level 102 Carbon Dioxide Level 25 Anion Gap 8 Blood Urea Nitrogen 15 Creatinine 0.50 L Glucose Level 93 Calcium Level 8.5 Phosphorus Level 3.2 Magnesium Level 2.0 Medications Medications Current Medications Amiodarone HCl (Cordarone) 200 mg DAILY GTB Last administered on 10/21/16 09: 34; Admin Dose 200 MG; Start 10/19/16 at 09:00 Amlodipine Besylate (Norvasc) 5 mg DAILY GTB Last administered on 10/21/16 09: 37; Admin Dose 5 MG; Start 10/19/16 at 09:00 Baclofen (Lioresal) 5 mg Q8 PRN GTB MUSCLE SPASMS; Start 10/18/16 at 23:00 Bisacodyl (Dulcolax Supp) 10 mg PRN PRN ID CONSTIPATION; Start 10/18/16 at 23:00 Chlorhexidine Gluconate (Peridex) 15 ml Q12 MM Last administered on 10/21/16 09:33; Admin Dose 15 ML; Start 10/19/16 at 09:00 Clonidine (Catapres) 0.1 mg Q6 PRN GTB ELEVATED BLOOD PRESSURE>150; Start at 23:00 Enoxaparin Sodium (Lovenox) 40 mg DAILY SC Last administered on 10/21/16 09:46 ; Admin Dose 40 MG; Start 10/19/16 at 09:00 Magnesium Hydroxide (Milk Of Mag) 30 ml DAILY GTB Last administered on 08:40; Admin Dose 30 ML; Start 10/19/16 at 09:00 Metoprolol Tartrate (Lopressor) 12.5 mg BID GTB Last administered on 10/21/16 09:34; Admin Dose 12.5 MG; Start 10/19/16 at 09:00 Sodium Biphosphate/ Sodium Phosphate (Fleet Enema) 133 ml DAILY PRN ID CONSTIPATION; Start 10/18/16 at 23:00 Pantoprazole (Protonix Tab) 40 mg DAILY@06 PO Last administered on 10/21/16 05 :27; Admin Dose 40 MG; Start 10/19/16 at 06:00 Tamsulosin HCl (Flomax) 0.4 mg DAILY PO Last administered on 10/21/16 09:34; Admin Dose 0.4 MG; Start 10/19/16 at 09:00 Tramadol HCl (Ultram) 50 mg Q6 PRN GTB SEVERE PAIN LEVEL 7-10 Last administered on 10/19/16 12:31; Admin Dose 50 MG; Start 10/18/16 at 23:00 Lactobacillus Acidophilus/ Rhamnosus 1 cap 1 cap BID PO Last administered on 09:34; Admin Dose 1 CAP; Start 10/19/16 at 09:00 Piperacillin Sod/ Tazobactam Sod (Zosyn 3.375gm/ 100 ml (Pmx)) 100 ml @ 200 mls /hr Q8 IVPB Last administered on 10/21/16 05:27; Admin Dose 200 MLS/HR; Start 10/19/16 at 06:00 Insulin Aspart (Novolog Insulin Pen) NOVOLOG *MODERATE* ALGORI... Q6 SC ; Start 10/19/16 at 00:00 Miscellaneous Information 1 ea NOTE XX ; Start 10/19/16 at 00:30 Glucose (Glutose) 15 gm Q15M PRN PO DECREASED GLUCOSE; Start 10/19/16 at 00:30 Glucose (Glutose) 22.5 gm Q15M PRN PO DECREASED GLUCOSE; Start 10/19/16 at 00:30 Dextrose (D50w Syringe) 25 ml Q15M PRN IV DECREASED GLUCOSE; Start 10/19/16 at 00:30 Dextrose (D50w Syringe) 50 ml Q15M PRN IV DECREASED GLUCOSE; Start 10/19/16 at 00:30 Glucagon (Glucagen) 1 mg Q15M PRN IM DECREASED GLUCOSE; Start 10/19/16 at 00:30 Glucose (Glutose) 15 gm Q15M PRN BUCCAL DECREASED GLUCOSE; Start 10/19/16 at 00: 30 Acetaminophen (Tylenol Liquid) 650 mg Q4H PRN GTB PAIN OR ELEVATED TEMP.; Start 10/19/16 at 00:30 Ascorbic Acid 500 mg 500 mg DAILY GTB Last administered on 10/21/16 09:34; Admin Dose 500 MG; Start 10/19/16 at 09:00 Vancomycin HCl/ Sodium Chloride (Vancocin/NS) 250 ml @ 83.333 mls/ hr Q24H IVPB Last administered on 10/20/16 12:29; Admin Dose 83.333 MLS/HR; Start at 13:00 Nystatin (Nystatin Powder) 1 applic BID TOP Last administered on 10/21/16t 09: 35; Admin Dose 1 APPLIC; Start 10/19/16 at 11:00 Miscellaneous Information (*Rx Drug Level Order Reminder*) 1 ONCE ONCE XX ; Start 10/21/16 at 12:00; Stop 10/21/16 at 12:01 BETTINA ROSE October 21, 2016 10:29
[2016-10-21] MEDS: VANCOMYCIN 1.5 GM in SOD CHLORIDE 0.9% 250 ML IVPB SCH (14:27)
[2016-10-21] MEDS: LACTOBACILLUS RHAMNOSUS CAP GTB SCH (20:49)
[2016-10-22] VITALS (30 sets, daily range): BP systolic 103–160; BP diastolic 60–93; PULSE 51–75; RESP 14–20
[2016-10-22] MEDS: LANSOPRAZOLE 30 MG CAP GTB SCH (05:53)
[2016-10-22] MEDS: PIPER-TAZO 3.375 GM IV (PMX) 100 ML IVPB SCH ×3 (05:53→21:21)
[2016-10-22] MEDS: INSULIN ASPART [NOVOLOG] 3 ML PEN SC SCH ×3 (06:00→17:27)
[2016-10-22 07:05] LABS: ADD SCAN DIFF NO
[2016-10-22 07:15] LABS: BASOPHILS % 0.2 % (0.0-2.0); EOSINOPHILS # 0.1 10^3/ul (0.0-0.5); EOSINOPHILS % 1.6 % (0.0-7.0); HEMATOCRIT 29.4 % (42.0-52.0); HEMOGLOBIN 9.4 g/dl (14.0-18.0); LYMPHOCYTES # 1.1 10^3/ul (0.8-2.9); LYMPHOCYTES % 13.1 % (15.0-51.0); MEAN CORPUSCULAR HEMOGLOBIN 29.4 pg (29.0-33.0); MEAN CORPUSCULAR VOLUME 91.9 fl (82.0-101.0); MEAN PLATELET VOLUME 9.4 fl (7.4-10.4); MONOCYTE # 0.7 10^3/ul (0.3-0.9); MONOCYTES % 7.7 % (0.0-11.0); NEUTROPHIL # 6.6 10^3/ul (1.6-7.5); NEUTROPHILS % 76.1 % (39.0-77.0); PLATELET COUNT 331 10^3/UL (140-415); RED CELL DISTRIBUTION WIDTH 16.7 % (11.5-14.5); WHITE BLOOD COUNT 8.6 10^3/ul (4.8-10.8)
[2016-10-22] MEDS: BUDESONIDE (NEB) 0.5MG/2ML AMP HHN SCH ×2 (07:29→19:37)
[2016-10-22 07:41] LABS: CALCIUM 8.5 mg/dl (8.4-10.2); CREATININE 0.45 mg/dl (0.61-1.24)
[2016-10-22 07:43] LABS: MAGNESIUM 1.9 mg/dl (1.7-2.5); PHOSPHORUS 2.9 mg/dl (2.5-4.9)
[2016-10-22] MEDS: LACTOBACILLUS RHAMNOSUS CAP GTB SCH ×2 (08:57→21:21)
[2016-10-22] MEDS: TAMSULOSIN (SR) 0.4 MG CAP PO SCH (08:57)
[2016-10-22] MEDS: ASCORBIC ACID 500 MG TAB GTB SCH (08:57)
[2016-10-22] MEDS: AMIODARONE 200 MG TAB GTB SCH (08:58)
[2016-10-22] MEDS: AMLODIPINE 5 MG TAB GTB SCH (08:58)
[2016-10-22] MEDS: CHLORHEXIDINE GLUCONATE 15 ML UD CUP MM SCH ×2 (08:58→21:21)
[2016-10-22] MEDS: METOPROLOL 25 MG TAB GTB SCH ×2 (08:58→21:00)
[2016-10-22] MEDS: MAGNESIUM HYDROXIDE 30ML CUP GTB SCH (08:58)
[2016-10-22] MEDS: ENOXAPARIN 40 MG/0.4 ML SYG SC SCH (09:23)
[2016-10-22] MEDS: NYSTATIN 30 GM POWDER BTL TOP SCH ×2 (09:55→21:23)
--- NOTE | 2016-10-22 11:26 | PN ---
Date/Time of Note Date/Time of Note DATE: 10/22/16 TIME: 11:03 Assessment/Plan VTE Prophylaxis VTE Prophylaxis Intervention: LMWH Lines/Catheters IV C[facility]ter [facility]from [facility] Saline Lock Urinary Cath still in place: No Assessment/Plan Assessment/Plan 86-year-old male with: 1. Acute on chronic respiratory failure, actually had episode of respiratory arrest requiring CPR, but rapidly resuscitated within 1 minute at [facility], per Son had previous episodes also at other SNF CT angiogram negative for PE Continue nebulizer treatment. Respi cx with Carbapenemase producing Kliebsiella Pneumoniae and also Pseudomonas. Continue current antibiotic treatment with ID consult pending. Contact isolation. Continue aggressive pulmonary toilet and frequent suctioning to manage secretions. 2. Healthcare-associated Pneumonia versus ventilator-associated pneumonia with MDR and carbapenem resistant Klebsiella in resp cx ... CTA negative for PE and confirming atelectasis +PNA Patient has been improving well while on Zosyn, unclear CR klebsiella is a contaminant, continue pulmonary toilet and current Zosyn/Vanco until ID eval and recs. Repeat CXR today 3. Chronic obstructive pulmonary disease also seen on CTA chest at least moderate to severe COPD Continue nebulizer treatments Already on ventilatory support s/p trach 4. Paroxysmal atrial fibrillation, currently in sinus rhythm. In SR and on Amiodarone and metoprolol. 5. Status post cervical spine decompressive laminectomy, multilevel, C2 -C7 laminectomy and C2-T2 posterior fusion Unfortunately quadriparetic, status post respiratory failure, now trached, on ventilator. Resume physical therapy once the patient is more stable, Continue cervical collar, per records from [facility], the patient has it removed when eating and also when bathing and also for skin check which will be continued here. Will clarify the length of time the cervical collar needs to stay in place with the long term facility staff. 6. Status post PEG tube placement for feeding. Continue Tube feeding and free water. Monitor electrolytes, Na closely 7. Benign prostatic hypertrophy. Continue Flomax. 8. Reported history of prostate cancer. 9. Per long term facility, previous pulmonary embolus and pneumothorax resolved. It is unclear which side. CT angiogram chest negative for PE Continue Lovenox DVT prophylactic doses. Prophylaxis. Protonix for GI prophylaxis and Lovenox for deep venous thrombosis prophylaxis. DISPOSITION: Continue IV antibiotics and Pulmonary toilet. ID consult pending for recs re IV abx. Repeat CXR today D/c plan in 48 hrs hopefully, per Son insisting to have him at [place]... Subjective 24 Hr Interval Summary Free Text/Dictation Patient doing better clinically but FiO2 up to 60% ... less secretions per RN Afebrile and WBC wnl but respiratory cx with MDRO Exam/Review of Systems Vital Signs Vitals Vital Signs Date Time Temp Pulse Resp B/P Pulse Ox O2 Delivery O2 Flow Rate FiO2 10/22/16 09:28 71 14 97 60 10/22/16 07:08 98.2 153/77 10/22/16 06:06 Mechanical Ventilator 10/18/16 19:06 10.0 Intake and Output 10/21/16 10/21/16 10/22/16 15:00 23:00 07:00 Intake Total 560 ml 560 ml Output Total 900 ml Balance -340 ml 560 ml Exam Constitutional: alert, oriented (x 2 to 3 at least ) Respiratory: clear to auscultation, other (on vent with FiO2 60%) Cardiovascular: nl pulses, regular rate and rhythm Gastrointestinal: non-tender, soft Musculoskeletal: nl extremities to inspection Extremities: normal pulses, other (no edema, clubbing or cyanosis ) Neurological: CONFIGURATION MANAGER II-XII intact, lethargic, other (quadriplegic ) Results Result Diagram: 10/22/16 0646 10/22/16 0646 Results 24 hrs Laboratory Tests Test 10/21/16 12:15 10/21/16 12:24 10/21/16 18:08 10/21/16 20:55 Vancomycin Level Trough 12.3 Bedside Glucose 127 110 105 Test 10/21/16 23:59 10/22/16 06:00 10/22/16 06:46 Bedside Glucose 103 106 White Blood Count 8.6 # Red Blood Count 3.20 L Hemoglobin 9.4 L Hematocrit 29.4 L Mean Corpuscular Volume 91.9 Mean Corpuscular Hemoglobin 29.4 Mean Corpuscular Hemoglobin Concent 32.0 Red Cell Distribution Width 16.7 H Platelet Count 331 Mean Platelet Volume 9.4 Neutrophils % 76.1 Lymphocytes % 13.1 L Monocytes % 7.7 Eosinophils % 1.6 Basophils % 0.2 Nucleated Red Blood Cells % 0.0 Neutrophils # 6.6 Lymphocytes # 1.1 Monocytes # 0.7 Eosinophils # 0.1 Basophils # 0.0 Nucleated Red Blood Cells # 0.0 Sodium Level 130 L Potassium Level 4.0 Chloride Level 100 Carbon Dioxide Level 26 Anion Gap 8 Blood Urea Nitrogen 12 Creatinine 0.45 L Glucose Level 100 Calcium Level 8.5 Phosphorus Level 2.9 Magnesium Level 1.9 Medications Medications Current Medications Amiodarone HCl (Cordarone) 200 mg DAILY GTB Last administered on 10/22/16 08: 58; Admin Dose 200 MG; Start 10/19/16 at 09:00 Amlodipine Besylate (Norvasc) 5 mg DAILY GTB Last administered on 10/22/16 08: 58; Admin Dose 5 MG; Start 10/19/16 at 09:00 Baclofen (Lioresal) 5 mg Q8 PRN GTB MUSCLE SPASMS; Start 10/18/16 at 23:00 Bisacodyl (Dulcolax Supp) 10 mg PRN PRN [place] CONSTIPATION; Start 10/18/16 at 23:00 Chlorhexidine Gluconate (Peridex) 15 ml Q12 MM Last administered on 10/22/16 08:58; Admin Dose 15 ML; Start 10/19/16 at 09:00 Clonidine (Catapres) 0.1 mg Q6 PRN GTB ELEVATED BLOOD PRESSURE>150; Start at 23:00 Enoxaparin Sodium (Lovenox) 40 mg DAILY SC Last administered on 10/22/16 09:23 ; Admin Dose 40 MG; Start 10/19/16 at 09:00 Magnesium Hydroxide (Milk Of Mag) 30 ml DAILY GTB Last administered on 08:58; Admin Dose 30 ML; Start 10/19/16 at 09:00 Metoprolol Tartrate (Lopressor) 12.5 mg BID GTB Last administered on 10/22/16 08:58; Admin Dose 12.5 MG; Start 10/19/16 at 09:00 Sodium Biphosphate/ Sodium Phosphate (Fleet Enema) 133 ml DAILY PRN [place] CONSTIPATION; Start 10/18/16 at 23:00 Tamsulosin HCl (Flomax) 0.4 mg DAILY PO Last administered on 10/22/16 08:57; Admin Dose 0.4 MG; Start 10/19/16 at 09:00 Tramadol HCl 50 mg 50 mg Q6 PRN GTB SEVERE PAIN LEVEL 7-10 Last administered on 10/19/16 12:31; Admin Dose 50 MG; Start 10/18/16 at 23:00 Piperacillin Sod/ Tazobactam Sod (Zosyn 3.375gm/ 100 ml (Pmx)) 100 ml @ 200 mls /hr Q8 IVPB Last administered on 10/22/16 05:53; Admin Dose 200 MLS/HR; Start 10/19/16 at 06:00 Insulin Aspart (Novolog Insulin Pen) NOVOLOG *MODERATE* ALGORI... Q6 SC ; Start 10/19/16 at 00:00 Miscellaneous Information 1 ea NOTE XX ; Start 10/19/16 at 00:30 Glucose (Glutose) 15 gm Q15M PRN PO DECREASED GLUCOSE; Start 10/19/16 at 00:30 Glucose (Glutose) 22.5 gm Q15M PRN PO DECREASED GLUCOSE; Start 10/19/16 at 00:30 Dextrose (D50w Syringe) 25 ml Q15M PRN IV DECREASED GLUCOSE; Start 10/19/16 at 00:30 Dextrose (D50w Syringe) 50 ml Q15M PRN IV DECREASED GLUCOSE; Start 10/19/16 at 00:30 Glucagon (Glucagen) 1 mg Q15M PRN IM DECREASED GLUCOSE; Start 10/19/16 at 00:30 Glucose (Glutose) 15 gm Q15M PRN BUCCAL DECREASED GLUCOSE; Start 10/19/16 at 00: 30 Acetaminophen (Tylenol Liquid) 650 mg Q4H PRN GTB PAIN OR ELEVATED TEMP.; Start 10/19/16 at 00:30 Ascorbic Acid 500 mg 500 mg DAILY GTB Last administered on 10/22/16 08:57; Admin Dose 500 MG; Start 10/19/16 at 09:00 Vancomycin HCl/ Sodium Chloride (Vancocin/NS) 250 ml @ 83.333 mls/ hr Q24H IVPB Last administered on 10/21/16 14:27; Admin Dose 83.333 MLS/HR; Start 10/19 at 13:00 Nystatin (Nystatin Powder) 1 applic BID TOP Last administered on 10/22/16 09: 55; Admin Dose 1 APPLIC; Start 10/19/16 at 11:00 Lansoprazole (Prevacid) 30 mg DAILY@06 GTB Last administered on 10/22/16 05:53 ; Admin Dose 30 MG; Start 10/22/16 at 06:00 Lactobacillus Acidophilus/ Rhamnosus (Culturelle) 1 cap BID GTB Last administered on 10/22/16 08:57; Admin Dose 1 CAP; Start 10/21/16 at 21:00 BETTINA ROSE October 22, 2016 11:14
[2016-10-22] MEDS: VANCOMYCIN 1.5 GM in SOD CHLORIDE 0.9% 250 ML IVPB SCH (12:25)
[2016-10-22] MEDS ORDERED: AMIKACIN IV PER PHARMACY XX SCH (14:00)
--- NOTE | 2016-10-22 14:09 | CONS ---
DATE OF ADMISSION: 10/18/2016 DATE OF CONSULTATION: 10/22/2016 TYPE OF CONSULTATION: Infectious Disease. REASON FOR CONSULTATION: Antibiotic management. HISTORY OF PRESENT ILLNESS: Manuela Larsen is an 86-year-old male who was admitted on with respiratory failure, acute on chronic, and is being seen for antibiotic management. H is past problems include: 1. Chronic obstructive pulmonary disease with chronic respiratory failure. 2. Status post tracheostomy. 3. Dysphagia, status post J-tube placement at [facility]. 4. Paroxysmal atrial fibrillation. 5. Severe cervical stenosis, status post multilevel decompressive laminectomy at [facility]. 6. History of transient ischemic attack. 7. Pulmonary emboli. 8. Pneumothorax. The patient has been at a subacute facility in [place], was admitted on 09/29/2016. On 7, he was found to be in chronic respiratory failure and had respiratory arrest requiring CPR that w as done. He was severely cyanotic. He was resuscitated, placed on the ventilator and transferred t [facility]. Here he was found to have leukocytosis. On chest x-ray, his left lung was " liam-out." He was diagnosed with pneumonia, acute on chronic respiratory failure. The following morning, he was alert and responsive. He has a C-spine collar in place. The patient was placed on vancomycin and Zosyn. His other problems include hypertension, previous pulmonary emboli and pneumo thorax which are resolved, benign prostatic hypertrophy, reported history of prostate cancer, chroni c obstructive pulmonary disease as noted before. On admission, his white count was 15,000, H and H of 10 and 31.7, platelet count 388,000. BUN and creatinine 21/0.45. Urinalysis is negative. Blood cultures have been drawn and are pending. Respiratory cultures are pending. HOSPITAL COURSE: His blood cultures were negative. Urine cultures negative. His sputum grew out P seudomonas aeruginosa and Klebsiella pneumoniae and carbapenemase. The Klebsiella was sensitive to amikacin. The patient is on vancomycin and Zosyn. Chest x-ray shows pneumonia throughout the left lung, elevation of left hemidiaphragm or left diaphragmatic hernia, tracheostomy tube in place. The patient is followed by Dr. Burt. CT angiogram negative for PE. PAST MEDICAL HISTORY: Operations as outlined. FAMILY HISTORY: Noncontributory. SOCIAL HISTORY: He does not smoke, drink or abuse drugs. ALLERGIES: NONE TO PENICILLIN, SULFA OR FOODS. MEDICATIONS: Per chart. REVIEW OF SYSTEMS: As per HPI. PHYSICAL EXAMINATION: GENERAL: The patient is a chronically ill-appearing male, who is awake, alert, in no acute distress . He has a trach and a PEG. SKIN: Without generalized rash. HEENT: Within normal limits. NECK: Supple. LYMPH NODES: None palpable. CHEST: Decreased breath sounds at the bases. HEART: Without murmur or gallop. ABDOMEN: Soft, nontender, without organosplenomegaly or masses. EXTREMITIES: Without cyanosis, clubbing, or edema. RECTAL AND GENITAL: Deferred. NEUROLOGIC: No focal neurological abnormality. IMPRESSION AND PLAN: We can repeat his sputum cultures and start him on amikacin, pharmacy to dose. It seems that the patient seems to be improving while on Zosyn, but nevertheless we will add amika deidre to the regimen. We may want to discontinue his vancomycin. I will dictate my findings to the hospitalist. Dictated By: ROSITA FORBES MD, JD/JING Conf#: [id number] DID#: [id number]
[2016-10-22] MEDS ORDERED: SOD CHLORIDE 0.9% IVPB SCH (15:30)
[2016-10-22] MEDS ORDERED: AMIKACIN IVPB SCH (15:30)
--- NOTE | 2016-10-22 15:53 | RADRPT ---
PROCEDURE: XR Chest. CLINICAL INDICATION: Shortness of breath. TECHNIQUE: Single frontal view. COMPARISON: 10/18/2016. FINDINGS: The tracheostomy tube is in satisfactory position. The right lung is clear. There is left basilar atelectasis or pneumonia, unchanged. The heart size is normal. There is no right pleural effusion. There is a small left pleural effusion. There is no pneumothorax. There has been prior cervical spine surgery with hardware noted. IMPRESSION: 1. No significant change from 10/18/2016. RPTAT: QQ .To Galeana MD, MD Date Time Electronically viewed and signed by .To Galeana MD, MD on 10/22/2016 15:52 .R/
[2016-10-23] VITALS (26 sets, daily range): BP systolic 104–135; BP diastolic 54–93; PULSE 49–65; RESP 14–22
[2016-10-23] MEDS: INSULIN ASPART [NOVOLOG] 3 ML PEN SC SCH ×4 (05:33→17:29)
[2016-10-23] MEDS: PIPER-TAZO 3.375 GM IV (PMX) 100 ML IVPB SCH ×3 (05:33→22:47)
[2016-10-23] MEDS: LANSOPRAZOLE 30 MG CAP GTB SCH (05:33)
[2016-10-23 07:12] LABS: ADD SCAN DIFF NO
[2016-10-23 07:19] LABS: BASOPHILS % 0.4 % (0.0-2.0); EOSINOPHILS # 0.3 10^3/ul (0.0-0.5); EOSINOPHILS % 2.9 % (0.0-7.0); HEMATOCRIT 29.7 % (42.0-52.0); HEMOGLOBIN 9.1 g/dl (14.0-18.0); LYMPHOCYTES # 1.2 10^3/ul (0.8-2.9); LYMPHOCYTES % 13.3 % (15.0-51.0); MEAN CORPUSCULAR HEMOGLOBIN 28.6 pg (29.0-33.0); MEAN CORPUSCULAR HGB CONC 30.6 g/dl (32.0-37.0); MEAN CORPUSCULAR VOLUME 93.4 fl (82.0-101.0); MEAN PLATELET VOLUME 10.4 fl (7.4-10.4); MONOCYTE # 0.7 10^3/ul (0.3-0.9); MONOCYTES % 7.9 % (0.0-11.0); NEUTROPHIL # 6.9 10^3/ul (1.6-7.5); NEUTROPHILS % 74.4 % (39.0-77.0); PLATELET COUNT 254 10^3/UL (140-415); RED BLOOD COUNT 3.18 10^6/ul (4.70-6.10); RED CELL DISTRIBUTION WIDTH 16.8 % (11.5-14.5); WHITE BLOOD COUNT 9.3 10^3/ul (4.8-10.8)
[2016-10-23 07:56] LABS: CALCIUM 8.4 mg/dl (8.4-10.2); CREATININE 0.42 mg/dl (0.61-1.24); POTASSIUM 4.4 mmol/L (3.5-5.1)
[2016-10-23 08:13] LABS: MAGNESIUM 2.1 mg/dl (1.7-2.5); PHOSPHORUS 2.8 mg/dl (2.5-4.9)
[2016-10-23] MEDS: BUDESONIDE (NEB) 0.5MG/2ML AMP HHN SCH ×2 (09:42→21:52)
[2016-10-23] MEDS: METOPROLOL 25 MG TAB GTB SCH ×2 (09:49→20:42)
[2016-10-23] MEDS: LACTOBACILLUS RHAMNOSUS CAP GTB SCH ×2 (09:49→20:43)
[2016-10-23] MEDS: TAMSULOSIN (SR) 0.4 MG CAP PO SCH (09:49)
[2016-10-23] MEDS: ASCORBIC ACID 500 MG TAB GTB SCH (09:49)
[2016-10-23] MEDS: NYSTATIN 30 GM POWDER BTL TOP SCH ×2 (09:50→20:43)
[2016-10-23] MEDS: AMIODARONE 200 MG TAB GTB SCH (09:50)
[2016-10-23] MEDS: AMLODIPINE 5 MG TAB GTB SCH (09:50)
[2016-10-23] MEDS: CHLORHEXIDINE GLUCONATE 15 ML UD CUP MM SCH ×2 (09:50→20:43)
[2016-10-23] MEDS: MAGNESIUM HYDROXIDE 30ML CUP GTB SCH (09:50)
[2016-10-23] MEDS: ENOXAPARIN 40 MG/0.4 ML SYG SC SCH (10:18)
--- NOTE | 2016-10-23 12:58 | PN ---
Date/Time of Note Date/Time of Note DATE: 10/23/16 TIME: 12:47 Assessment/Plan VTE Prophylaxis VTE Prophylaxis Intervention: LMWH Lines/Catheters IV Catheter Type (from Nrs): Saline Lock Assessment/Plan Assessment/Plan 86-year-old male with: 1. Acute on chronic respiratory failure, actually had episode of respiratory arrest requiring CPR, but rapidly resuscitated within 1 minute at SNF, per Son had previous episodes also at other SNF CT angiogram negative for PE Continue nebulizer treatment. Respi cx with Carbapenemase producing Kliebsiella Pneumoniae and also Pseudomonas. Appreciate Dr Melvin's recommendations, continue Zosyn and Amikacin added. Continue aggressive pulmonary toilet and frequent suctioning to manage secretions. 2. Healthcare-associated Pneumonia versus ventilator-associated pneumonia with MDR and carbapenem resistant Klebsiella in resp cx ... CTA negative for PE and confirming atelectasis +PNA Repeat sputum cx pending. Contact isolation. Per ID continue Zosyn and Amikacin and f/u repeat sputum cx Vanco d/c'd Much less secretions per RN and RT Repeat CXR unchanged since CT chest dose. 3. Chronic obstructive pulmonary disease also seen on CTA chest at least moderate to severe COPD Continue nebulizer treatments and abx Already on ventilatory support s/p trach 4. Paroxysmal atrial fibrillation, currently in sinus rhythm. In SR and on Amiodarone and metoprolol. 5. Status post cervical spine decompressive laminectomy, multilevel, C2 -C7 laminectomy and C2-T2 posterior fusion Unfortunately quadriparetic, status post respiratory failure, now trached, on ventilator. Resume physical therapy once the patient is more stable, Continue cervical collar, per records from SNF, the patient has it removed when eating and also when bathing and also for skin check which will be continued here. Will clarify the length of time the cervical collar needs to stay in place with the halfway facility staff. 6. Status post PEG tube placement for feeding. Continue Tube feeding and free water. Monitor electrolytes, Na closely 7. Benign prostatic hypertrophy. Continue Flomax. 8. Reported history of prostate cancer. 9. Per halfway facility, previous pulmonary embolus and pneumothorax resolved. It is unclear which side. CT angiogram chest negative for PE Continue Lovenox DVT prophylactic doses. Prophylaxis. Protonix for GI prophylaxis and Lovenox for deep venous thrombosis prophylaxis. DISPOSITION: Appreciate ID recs, continue IV antibiotics and Pulmonary toilet. D/c plan in 24 to 48 hrs hopefully, per Son insisting to have him at [place]... Subjective 24 Hr Interval Summary Free Text/Dictation Patient clinically much better, also with less secretions Afebrile and on contact precautions today Started on Amikacin per ID and awaiting repeat sputum cx Exam/Review of Systems Vital Signs Vitals Vital Signs Date Time Temp Pulse Resp B/P Pulse Ox O2 Delivery O2 Flow Rate FiO2 10/23/16 12:26 49 10/23/16 11:24 98.4 19 107/54 96 10/23/16 11:05 50 10/23/16 04:27 Mechanical Ventilator Intake and Output 10/22/16 10/22/16 10/23/16 15:00 23:00 07:00 Intake Total 1160 ml 560 ml Output Total 800 ml 1000 ml Balance 360 ml -440 ml Exam Constitutional: alert, frail, oriented, other (with quadriparesis ) ENMT: other (C Collar in place and trach ) Respiratory: diminished breath sounds (LLL but less secretions ), other ( trached on Vent ) Cardiovascular: nl pulses, regular rate and rhythm Gastrointestinal: non-tender, other (tolerating TF), soft Musculoskeletal: nl extremities to inspection Extremities: normal pulses, other (no edema, clubbing or cyanosis ) Neurological: DRAIN TILER II-XII intact, other (quadriparesis ) Results Result Diagram: 10/23/16 0650 10/23/16 0650 Results 24 hrs Laboratory Tests Test 10/22/16 17:26 10/23/16 00:01 10/23/16 02:05 10/23/16 05:32 Bedside Glucose 104 103 100 Random Amikacin Level Test 10/23/16 06:50 10/23/16 08:56 10/23/16 12:15 White Blood Count 9.3 Red Blood Count 3.18 L Hemoglobin 9.1 L Hematocrit 29.7 L Mean Corpuscular Volume 93.4 Mean Corpuscular Hemoglobin 28.6 L Mean Corpuscular Hemoglobin Concent 30.6 L Red Cell Distribution Width 16.8 H Platelet Count 254 # Mean Platelet Volume 10.4 Neutrophils % 74.4 Lymphocytes % 13.3 L Monocytes % 7.9 Eosinophils % 2.9 Basophils % 0.4 Nucleated Red Blood Cells % 0.0 Neutrophils # 6.9 Lymphocytes # 1.2 Monocytes # 0.7 Eosinophils # 0.3 Basophils # 0.0 Nucleated Red Blood Cells # 0.0 Sodium Level 129 L Potassium Level 4.4 Chloride Level 101 Carbon Dioxide Level 24 Anion Gap 8 Blood Urea Nitrogen 12 Creatinine 0.42 L Glucose Level 93 Calcium Level 8.4 Phosphorus Level 2.8 Magnesium Level 2.1 Lab Scanned Report REFERENCE LAB Bedside Glucose 113 Medications Medications Current Medications Amiodarone HCl (Cordarone) 200 mg DAILY GTB Last administered on 10/23/16 09: 50; Admin Dose 200 MG; Start 10/19/16 at 09:00 Amlodipine Besylate (Norvasc) 5 mg DAILY GTB Last administered on 10/23/16 09: 50; Admin Dose 5 MG; Start 10/19/16 at 09:00 Baclofen (Lioresal) 5 mg Q8 PRN GTB MUSCLE SPASMS; Start 10/18/16 at 23:00 Bisacodyl (Dulcolax Supp) 10 mg PRN PRN [place] CONSTIPATION; Start 10/18/16 at 23:00 Chlorhexidine Gluconate (Peridex) 15 ml Q12 MM Last administered on 10/23/16 09:50; Admin Dose 15 ML; Start 10/19/16 at 09:00 Clonidine (Catapres) 0.1 mg Q6 PRN GTB ELEVATED BLOOD PRESSURE>150; Start at 23:00 Enoxaparin Sodium (Lovenox) 40 mg DAILY SC Last administered on 10/23/16 10:18 ; Admin Dose 40 MG; Start 10/19/16 at 09:00 Magnesium Hydroxide (Milk Of Mag) 30 ml DAILY GTB Last administered on 09:50; Admin Dose 30 ML; Start 10/19/16 at 09:00 Metoprolol Tartrate (Lopressor) 12.5 mg BID GTB Last administered on 10/23/16 09:49; Admin Dose 12.5 MG; Start 10/19/16 at 09:00 Sodium Biphosphate/ Sodium Phosphate (Fleet Enema) 133 ml DAILY PRN [place] CONSTIPATION; Start 10/18/16 at 23:00 Tamsulosin HCl (Flomax) 0.4 mg DAILY PO Last administered on 10/23/16 09:49; Admin Dose 0.4 MG; Start 10/19/16 at 09:00 Tramadol HCl 50 mg 50 mg Q6 PRN GTB SEVERE PAIN LEVEL 7-10 Last administered on 10/19/16 12:31; Admin Dose 50 MG; Start 10/18/16 at 23:00 Piperacillin Sod/ Tazobactam Sod (Zosyn 3.375gm/ 100 ml (Pmx)) 100 ml @ 200 mls /hr Q8 IVPB Last administered on 10/23/16 05:33; Admin Dose 200 MLS/HR; Start 10/19/16 at 06:00 Insulin Aspart (Novolog Insulin Pen) NOVOLOG *MODERATE* ALGORI... Q6 SC ; Start 10/19/16 at 00:00 Miscellaneous Information 1 ea NOTE XX ; Start 10/19/16 at 00:30 Glucose (Glutose) 15 gm Q15M PRN PO DECREASED GLUCOSE; Start 10/19/16 at 00:30 Glucose (Glutose) 22.5 gm Q15M PRN PO DECREASED GLUCOSE; Start 10/19/16 at 00:30 Dextrose (D50w Syringe) 25 ml Q15M PRN IV DECREASED GLUCOSE; Start 10/19/16 at 00:30 Dextrose (D50w Syringe) 50 ml Q15M PRN IV DECREASED GLUCOSE; Start 10/19/16 at 00:30 Glucagon (Glucagen) 1 mg Q15M PRN IM DECREASED GLUCOSE; Start 10/19/16 at 00:30 Glucose (Glutose) 15 gm Q15M PRN BUCCAL DECREASED GLUCOSE; Start 10/19/16 at 00: 30 Acetaminophen (Tylenol Liquid) 650 mg Q4H PRN GTB PAIN OR ELEVATED TEMP.; Start 10/19/16 at 00:30 Ascorbic Acid (Vitamin C) 500 mg DAILY GTB Last administered on 10/23/16 09:49 ; Admin Dose 500 MG; Start 10/19/16 at 09:00 Nystatin (Nystatin Powder) 1 applic BID TOP Last administered on 10/23/16 09: 50; Admin Dose 1 APPLIC; Start 10/19/16 at 11:00 Lansoprazole (Prevacid) 30 mg DAILY@06 GTB Last administered on 10/23/16 05:33 ; Admin Dose 30 MG; Start 10/22/16 at 06:00 Lactobacillus Acidophilus/ Rhamnosus (Culturelle) 1 cap BID GTB Last administered on 10/23/16t 09:49; Admin Dose 1 CAP; Start 10/21/16 at 21:00 Amikacin Sulfate AMIKACIN PER PHARMACY NOTE XX ; Start 10/22/16 at 14:00 Amikacin Sulfate/ Sodium Chloride (Amikacin/NS) 250 ml @ 250 mls/hr Q36H IVPB ; Start 10/24/16 at 06:00 Procedures Procedures PROCEDURE: XR Chest. CLINICAL INDICATION: Shortness of breath. TECHNIQUE: Single frontal view. COMPARISON: 10/18/2016. FINDINGS: The tracheostomy tube is in satisfactory position. The right lung is clear. There is left basilar atelectasis or pneumonia, unchanged. The heart size is normal. There is no right pleural effusion. There is a small left pleural effusion. There is no pneumothorax. There has been prior cervical spine surgery with hardware noted. IMPRESSION: 1. No significant change from 10/18/2016. RPTAT: BETTINA RODRIGUEZ October 23, 2016 12:57
--- NOTE | 2016-10-23 15:22 | PN ---
DATE: 10/23/2016 INFECTIOUS DISEASE PROGRESS NOTE SUBJECTIVE: No acute changes. The patient is awake, looks comfortable. No fevers. He is alert an d follows commands. WBC today 9.3, platelets 254. No shift, no bands. BUN 12, creatinine 0.42. MICROBIOLOGY: Sputum culture grew Klebsiella and Pseudomonas aeruginosa. INDWELLINGS: Trach, PEG, Mireles. ANTIMICROBIALS: The patient is on: 1. Amikacin. 2. Zosyn. PHYSICAL EXAMINATION: GENERAL: This is a fragile, chronically ill-appearing, elderly man who is awake, in no distress. HEENT: Head atraumatic, normocephalic. Sclerae anicteric. Buccal mucosa dry. NECK: Supple. CHEST: Chest rise is symmetrical. Breath sounds diminished to the bases. HEART: S1, S2. ABDOMEN: Soft, bowel tones present. EXTREMITIES: No cyanosis. ASSESSMENT: 1. Healthcare-associated pneumonia. 2. Status post sepsis. 3. Oral thrush. 4. Chronic respiratory failure. 5. Dysphagia. 6. 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 PLAN: The patient remains stable. We are going to add Diflucan and oral nystatin for oral thrush, keep him on the current antimicrobials, follow chest x-ray and pulmonary toilet. Dictated By: JOSE DAVID PODIATRY PROFESSOR for ROSITA ELIZALDE/JING Conf#: [id number] DID#: [id number]
[2016-10-23] MEDS: FLUCONAZOLE 100 MG TAB PO SCH (15:31)
[2016-10-23] MEDS: NYSTATIN SUSP 5 ML CUP PO SCH ×2 (17:29→20:43)
[2016-10-24] VITALS (25 sets, daily range): BP systolic 117–152; BP diastolic 61–68; PULSE 43–66; RESP 10–20
[2016-10-24] MEDS: PIPER-TAZO 3.375 GM IV (PMX) 100 ML IVPB SCH ×3 (05:43→21:13)
[2016-10-24] MEDS: LANSOPRAZOLE 30 MG CAP GTB SCH (05:43)
[2016-10-24] MEDS: INSULIN ASPART [NOVOLOG] 3 ML PEN SC SCH ×4 (06:00→17:31)
[2016-10-24] MEDS: SOD CHLORIDE 0.9% IVPB SCH (06:43)
[2016-10-24] MEDS: AMIKACIN IVPB SCH (06:43)
[2016-10-24 07:08] LABS: ADD SCAN DIFF NO
[2016-10-24 07:13] LABS: BASOPHILS % 0.4 % (0.0-2.0); EOSINOPHILS # 0.3 10^3/ul (0.0-0.5); EOSINOPHILS % 3.1 % (0.0-7.0); HEMATOCRIT 30.4 % (42.0-52.0); HEMOGLOBIN 9.4 g/dl (14.0-18.0); LYMPHOCYTES # 1.2 10^3/ul (0.8-2.9); LYMPHOCYTES % 14.9 % (15.0-51.0); MEAN CORPUSCULAR HEMOGLOBIN 28.6 pg (29.0-33.0); MEAN CORPUSCULAR HGB CONC 30.9 g/dl (32.0-37.0); MEAN CORPUSCULAR VOLUME 92.4 fl (82.0-101.0); MEAN PLATELET VOLUME 9.4 fl (7.4-10.4); MONOCYTE # 0.7 10^3/ul (0.3-0.9); MONOCYTES % 8.9 % (0.0-11.0); NEUTROPHILS % 71.9 % (39.0-77.0); PLATELET COUNT 327 10^3/UL (140-415); RED BLOOD COUNT 3.29 10^6/ul (4.70-6.10); WHITE BLOOD COUNT 8.3 10^3/ul (4.8-10.8)
[2016-10-24 07:38] LABS: MAGNESIUM 2.3 mg/dl (1.7-2.5); PHOSPHORUS 2.6 mg/dl (2.5-4.9)
[2016-10-24 07:45] LABS: CALCIUM 8.5 mg/dl (8.4-10.2); CREATININE 0.43 mg/dl (0.61-1.24); POTASSIUM 4.6 mmol/L (3.5-5.1)
[2016-10-24] MEDS: BUDESONIDE (NEB) 0.5MG/2ML AMP HHN SCH ×2 (08:26→19:41)
[2016-10-24] MEDS: CHLORHEXIDINE GLUCONATE 15 ML UD CUP MM SCH ×2 (09:15→21:10)
[2016-10-24] MEDS: ASCORBIC ACID 500 MG TAB GTB SCH (09:15)
[2016-10-24] MEDS: MAGNESIUM HYDROXIDE 30ML CUP GTB SCH (09:15)
[2016-10-24] MEDS: FLUCONAZOLE 100 MG TAB PO SCH (09:15)
[2016-10-24] MEDS: NYSTATIN SUSP 5 ML CUP PO SCH ×4 (09:15→21:11)
[2016-10-24] MEDS: AMLODIPINE 5 MG TAB GTB SCH (09:16)
[2016-10-24] MEDS: METOPROLOL 25 MG TAB GTB SCH ×2 (09:16→21:12)
[2016-10-24] MEDS: TAMSULOSIN (SR) 0.4 MG CAP PO SCH (09:16)
[2016-10-24] MEDS: AMIODARONE 200 MG TAB GTB SCH (09:16)
[2016-10-24] MEDS: LACTOBACILLUS RHAMNOSUS CAP GTB SCH ×2 (09:16→21:11)
[2016-10-24] MEDS: NYSTATIN 30 GM POWDER BTL TOP SCH ×2 (09:17→21:17)
[2016-10-24] MEDS: ENOXAPARIN 40 MG/0.4 ML SYG SC SCH (09:51)
--- NOTE | 2016-10-24 11:20 | PN ---
Date/Time of Note Date/Time of Note DATE: 10/24/16 TIME: 11:13 Assessment/Plan VTE Prophylaxis VTE Prophylaxis Intervention: LMWH Lines/Catheters [facility] Reason Cath still needed: other (indicate) (Condom cath in place ) Assessment/Plan Assessment/Plan 86-year-old male with: 1. Acute on chronic respiratory failure, actually had episode of respiratory arrest requiring CPR, but rapidly resuscitated within 1 minute at SNF, per Son had previous episodes also at other SNF CT angiogram negative for PE Continue nebulizer treatment. Respi cx with Carbapenemase producing Kliebsiella Pneumoniae and also Pseudomonas. Appreciate Dr Melvin's recommendations, continue Zosyn and Amikacin added. Continue aggressive pulmonary toilet and frequent suctioning to manage secretions. Less secretions and CXR better currently 2. Healthcare-associated Pneumonia versus ventilator-associated pneumonia with MDR and carbapenem resistant Klebsiella in resp cx ... CTA negative for PE and confirming atelectasis +PNA Repeat sputum cx pending. Contact isolation. Per ID continue Zosyn and Amikacin and f/u repeat sputum cx Much less secretions per RN and RT Repeat CXR unchanged since CT chest done. All in all improvement of Left lung infiltrate 3. Chronic obstructive pulmonary disease also seen on CTA chest at least moderate to severe COPD Continue nebulizer treatments and abx Already on ventilatory support s/p trach 4. Paroxysmal atrial fibrillation, currently in sinus rhythm. In SR and on Amiodarone and metoprolol. 5. Status post cervical spine decompressive laminectomy, multilevel, C2 -C7 laminectomy and C2-T2 posterior fusion Unfortunately quadriparetic, status post respiratory failure, now trached, on ventilator. Resume physical therapy once the patient is more stable, Continue cervical collar, per records from SNF, the patient has it removed when eating and also when bathing and also for skin check which will be continued here. Will clarify the length of time the cervical collar needs to stay in place with the [facility] staff. 6. Status post PEG tube placement for feeding. Continue Tube feeding and free water. Monitor electrolytes, Na closely 7. Benign prostatic hypertrophy. Continue Flomax. 8. Reported history of prostate cancer. 9. Per [facility] facility, previous pulmonary embolus and pneumothorax resolved. It is unclear which side. CT angiogram chest negative for PE Continue Lovenox DVT prophylactic doses. Prophylaxis. Protonix for GI prophylaxis and Lovenox for deep venous thrombosis prophylaxis. DISPOSITION: Appreciate ID recs, continue IV antibiotics and Pulmonary toilet. D/c plan in 24 hrs hopefully if Ok with ID, per Son insisting to have him at [facility]... Subjective 24 Hr Interval Summary Free Text/Dictation Patient keeps improving every day, on Vent and Neurologically stable Currently with much less secretions and less frequency of suctioning Afebrile ans WBC wnl Exam/Review of Systems Vital Signs Vitals Vital Signs Date Time Temp Pulse Resp B/P Pulse Ox O2 Delivery O2 Flow Rate FiO2 10/24/16 11:11 43 10/24/16 09:32 14 99 50 10/24/16 07:37 97.9 140/66 10/23/16 10:00 Mechanical Ventilator Intake and Output 10/23/16 10/23/16 10/24/16 15:00 23:00 07:00 Intake Total 660 ml 1010 ml Output Total 1000 ml Balance 660 ml 10 ml Exam Constitutional: alert, frail, oriented (x 2 at least ) Respiratory: diminished breath sounds (Left lung base ), other (much better aeration and less secretions ) Cardiovascular: nl pulses, regular rate and rhythm Gastrointestinal: non-tender, other (tolerating TF well ), soft Musculoskeletal: nl extremities to inspection Extremities: normal pulses, other (no edema, clubibng or cyanosis ) Neurological: DAM OPERATOR II-XII intact, other (quadriparesis ) Results Result Diagram: 10/24/16 0625 10/24/16 0625 Results 24 hrs Laboratory Tests Test 10/23/16 12:15 10/23/16 17:27 10/24/16 00:32 10/24/16 06:25 Bedside Glucose 113 106 106 White Blood Count 8.3 Red Blood Count 3.29 L Hemoglobin 9.4 L Hematocrit 30.4 L Mean Corpuscular Volume 92.4 Mean Corpuscular Hemoglobin 28.6 L Mean Corpuscular Hemoglobin Concent 30.9 L Red Cell Distribution Width 17.0 H Platelet Count 327 # Mean Platelet Volume 9.4 Neutrophils % 71.9 Lymphocytes % 14.9 L Monocytes % 8.9 Eosinophils % 3.1 Basophils % 0.4 Nucleated Red Blood Cells % 0.0 Neutrophils # 6.0 Lymphocytes # 1.2 Monocytes # 0.7 Eosinophils # 0.3 Basophils # 0.0 Nucleated Red Blood Cells # 0.0 Sodium Level 129 L Potassium Level 4.6 Chloride Level 102 Carbon Dioxide Level 24 Anion Gap 8 Blood Urea Nitrogen 13 Creatinine 0.43 L Glucose Level 103 Calcium Level 8.5 Phosphorus Level 2.6 Magnesium Level 2.3 Test 10/24/16 06:42 Bedside Glucose 113 Medications Medications Current Medications Amiodarone HCl (Cordarone) 200 mg DAILY GTB Last administered on 10/24/16 09: 16; Admin Dose 200 MG; Start 10/19/16 at 09:00 Amlodipine Besylate (Norvasc) 5 mg DAILY GTB Last administered on 10/24/16 09: 16; Admin Dose 5 MG; Start 10/19/16 at 09:00 Baclofen (Lioresal) 5 mg Q8 PRN GTB MUSCLE SPASMS; Start 10/18/16 at 23:00 Bisacodyl (Dulcolax Supp) 10 mg PRN PRN [place] CONSTIPATION; Start 10/18/16 at 23:00 Chlorhexidine Gluconate (Peridex) 15 ml Q12 MM Last administered on 10/24/16 09:15; Admin Dose 15 ML; Start 10/19/16 at 09:00 Clonidine (Catapres) 0.1 mg Q6 PRN GTB ELEVATED BLOOD PRESSURE>150; Start at 23:00 Enoxaparin Sodium (Lovenox) 40 mg DAILY SC Last administered on 10/24/16 09:51 ; Admin Dose 40 MG; Start 10/19/16 at 09:00 Magnesium Hydroxide (Milk Of Mag) 30 ml DAILY GTB Last administered on 09:15; Admin Dose 30 ML; Start 10/19/16 at 09:00 Metoprolol Tartrate (Lopressor) 12.5 mg BID GTB Last administered on 10/24/16 09:16; Admin Dose 12.5 MG; Start 10/19/16 at 09:00 Sodium Biphosphate/ Sodium Phosphate (Fleet Enema) 133 ml DAILY PRN [place] CONSTIPATION; Start 10/18/16 at 23:00 Tamsulosin HCl (Flomax) 0.4 mg DAILY PO Last administered on 10/24/16 09:16; Admin Dose 0.4 MG; Start 10/19/16 at 09:00 Tramadol HCl 50 mg 50 mg Q6 PRN GTB SEVERE PAIN LEVEL 7-10 Last administered on 10/19/16 12:31; Admin Dose 50 MG; Start 10/18/16 at 23:00 Piperacillin Sod/ Tazobactam Sod (Zosyn 3.375gm/ 100 ml (Pmx)) 100 ml @ 200 mls /hr Q8 IVPB Last administered on 10/24/16 05:43; Admin Dose 200 MLS/HR; Start 10/19/16 at 06:00 Insulin Aspart (Novolog Insulin Pen) NOVOLOG *MODERATE* ALGORI... Q6 SC ; Start 10/19/16 at 00:00 Miscellaneous Information 1 ea NOTE XX ; Start 10/19/16 at 00:30 Glucose (Glutose) 15 gm Q15M PRN PO DECREASED GLUCOSE; Start 10/19/16 at 00:30 Glucose (Glutose) 22.5 gm Q15M PRN PO DECREASED GLUCOSE; Start 10/19/16 at 00:30 Dextrose (D50w Syringe) 25 ml Q15M PRN IV DECREASED GLUCOSE; Start 10/19/16 at 00:30 Dextrose (D50w Syringe) 50 ml Q15M PRN IV DECREASED GLUCOSE; Start 10/19/16 at 00:30 Glucagon (Glucagen) 1 mg Q15M PRN IM DECREASED GLUCOSE; Start 10/19/16 at 00:30 Glucose (Glutose) 15 gm Q15M PRN BUCCAL DECREASED GLUCOSE; Start 10/19/16 at 00: 30 Acetaminophen (Tylenol Liquid) 650 mg Q4H PRN GTB PAIN OR ELEVATED TEMP.; Start 10/19/16 at 00:30 Ascorbic Acid (Vitamin C) 500 mg DAILY GTB Last administered on 10/24/16 09:15 ; Admin Dose 500 MG; Start 10/19/16 at 09:00 Nystatin (Nystatin Powder) 1 applic BID TOP Last administered on 10/24/16 09: 17; Admin Dose 1 APPLIC; Start 10/19/16 at 11:00 Lansoprazole (Prevacid) 30 mg DAILY@06 GTB Last administered on 10/24/16 05:43 ; Admin Dose 30 MG; Start 10/22/16 at 06:00 Lactobacillus Acidophilus/ Rhamnosus (Culturelle) 1 cap BID GTB Last administered on 10/24/16 09:16; Admin Dose 1 CAP; Start 10/21/16 at 21:00 Amikacin Sulfate AMIKACIN PER PHARMACY NOTE XX ; Start 10/22/16 at 14:00 Amikacin Sulfate/ Sodium Chloride (Amikacin/NS) 250 ml @ 250 mls/hr Q36H IVPB Last administered on 10/24/16 06:43; Admin Dose 250 MLS/HR; Start 10/24/16 at 06:00 Fluconazole (Diflucan) 100 mg DAILY PO Last administered on 10/24/16 09:15; Admin Dose 100 MG; Start 10/23/16 at 15:00 Nystatin (Nystatin Susp) 5 ml QID PO Last administered on 10/24/16 09:15; Admin Dose 5 ML; Start 10/23/16 at 17:00 BETTINA ROSE October 24, 2016 11:19
[2016-10-24] MEDS: traMADol 50 MG TAB GTB PRN (18:23)
--- NOTE | 2016-10-24 19:58 | CONS ---
Date/Time of Note Date/Time of Note DATE: 10/24/16 TIME: 19:56 Assessment/Plan Assessment/Plan Chief Complaint/Hosp Course SUBJECTIVE: No acute changes. The patient is awake, looks comfortable. No fevers. He is alert and follows commands. MICROBIOLOGY: Sputum culture grew Klebsiella and Pseudomonas aeruginosa. INDWELLINGS: Trach, PEG, Mireles. ANTIMICROBIALS: The patient is on: 1. Amikacin. 2. Zosyn. 3. Diflucan PHYSICAL EXAMINATION: GENERAL: This is a fragile, chronically ill-appearing, elderly man who is awake , in no distress. HEENT: Head atraumatic, normocephalic. Sclerae anicteric. Buccal mucosa dry. NECK: Supple. CHEST: Chest rise is symmetrical. Breath sounds diminished to the bases. HEART: S1, S2. ABDOMEN: Soft, bowel tones present. EXTREMITIES: No cyanosis. ASSESSMENT: 1. Healthcare-associated pneumonia. 2. Status post sepsis. 3. Oral thrush. 4. Chronic respiratory failure. 5. Dysphagia. 6. 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 7. Oral thrush PLAN: The patient remains stable. Continue abx, pulmonary toilet, stable for dc on current abx [facility] staff Problems: Consultation Date/Type/Reason Admit Date/Time October 18, 2016 at 20:27 Initial Consult Date Type of Consultation: ID Exam/Review of Systems Vital Signs Vitals Vital Signs Date Time Temp Pulse Resp B/P Pulse Ox O2 Delivery O2 Flow Rate FiO2 10/24/16 19:41 63 14 100 50 10/24/16 15:46 98.4 152/68 10/23/16 10:00 Mechanical Ventilator Intake and Output 10/23/16 10/23/16 10/24/16 15:00 23:00 07:00 Intake Total 660 ml 1010 ml Output Total 1000 ml Balance 660 ml 10 ml Results Result Diagram: 10/24/16 0625 10/24/16 0625 Results 24 hrs Laboratory Tests Test 10/24/16 00:32 10/24/16 06:25 10/24/16 06:42 10/24/16 12:50 Bedside Glucose 106 113 104 White Blood Count 8.3 Red Blood Count 3.29 L Hemoglobin 9.4 L Hematocrit 30.4 L Mean Corpuscular Volume 92.4 Mean Corpuscular Hemoglobin 28.6 L Mean Corpuscular Hemoglobin Concent 30.9 L Red Cell Distribution Width 17.0 H Platelet Count 327 # Mean Platelet Volume 9.4 Neutrophils % 71.9 Lymphocytes % 14.9 L Monocytes % 8.9 Eosinophils % 3.1 Basophils % 0.4 Nucleated Red Blood Cells % 0.0 Neutrophils # 6.0 Lymphocytes # 1.2 Monocytes # 0.7 Eosinophils # 0.3 Basophils # 0.0 Nucleated Red Blood Cells # 0.0 Sodium Level 129 L Potassium Level 4.6 Chloride Level 102 Carbon Dioxide Level 24 Anion Gap 8 Blood Urea Nitrogen 13 Creatinine 0.43 L Glucose Level 103 Calcium Level 8.5 Phosphorus Level 2.6 Magnesium Level 2.3 Test 10/24/16 17:30 Bedside Glucose 101 Medications Medications Current Medications Amiodarone HCl (Cordarone) 200 mg DAILY GTB Last administered on 10/24/16 09: 16; Admin Dose 200 MG; Start 10/19/16 at 09:00 Amlodipine Besylate (Norvasc) 5 mg DAILY GTB Last administered on 10/24/16 09: 16; Admin Dose 5 MG; Start 10/19/16 at 09:00 Baclofen (Lioresal) 5 mg Q8 PRN GTB MUSCLE SPASMS; Start 10/18/16 at 23:00 Bisacodyl (Dulcolax Supp) 10 mg PRN PRN [place] CONSTIPATION; Start 10/18/16 at 23:00 Chlorhexidine Gluconate (Peridex) 15 ml Q12 MM Last administered on 10/24/16 09:15; Admin Dose 15 ML; Start 10/19/16 at 09:00 Clonidine (Catapres) 0.1 mg Q6 PRN GTB ELEVATED BLOOD PRESSURE>150; Start at 23:00 Enoxaparin Sodium (Lovenox) 40 mg DAILY SC Last administered on 10/24/16 09:51 ; Admin Dose 40 MG; Start 10/19/16 at 09:00 Magnesium Hydroxide (Milk Of Mag) 30 ml DAILY GTB Last administered on 09:15; Admin Dose 30 ML; Start 10/19/16 at 09:00 Metoprolol Tartrate (Lopressor) 12.5 mg BID GTB Last administered on 10/24/16 09:16; Admin Dose 12.5 MG; Start 10/19/16 at 09:00 Sodium Biphosphate/ Sodium Phosphate (Fleet Enema) 133 ml DAILY PRN [place] CONSTIPATION; Start 10/18/16 at 23:00 Tamsulosin HCl (Flomax) 0.4 mg DAILY PO Last administered on 10/24/16 09:16; Admin Dose 0.4 MG; Start 10/19/16 at 09:00 Tramadol HCl 50 mg 50 mg Q6 PRN GTB SEVERE PAIN LEVEL 7-10 Last administered on 10/24/16 18:23; Admin Dose 50 MG; Start 10/18/16 at 23:00 Piperacillin Sod/ Tazobactam Sod (Zosyn 3.375gm/ 100 ml (Pmx)) 100 ml @ 200 mls /hr Q8 IVPB Last administered on 10/24/16 14:17; Admin Dose 200 MLS/HR; Start 10/19/16 at 06:00 Insulin Aspart (Novolog Insulin Pen) NOVOLOG *MODERATE* ALGORI... Q6 SC ; Start 10/19/16 at 00:00 Miscellaneous Information 1 ea NOTE XX ; Start 10/19/16 at 00:30 Glucose (Glutose) 15 gm Q15M PRN PO DECREASED GLUCOSE; Start 10/19/16 at 00:30 Glucose (Glutose) 22.5 gm Q15M PRN PO DECREASED GLUCOSE; Start 10/19/16 at 00:30 Dextrose (D50w Syringe) 25 ml Q15M PRN IV DECREASED GLUCOSE; Start 10/19/16 at 00:30 Dextrose (D50w Syringe) 50 ml Q15M PRN IV DECREASED GLUCOSE; Start 10/19/16 at 00:30 Glucagon (Glucagen) 1 mg Q15M PRN IM DECREASED GLUCOSE; Start 10/19/16 at 00:30 Glucose (Glutose) 15 gm Q15M PRN BUCCAL DECREASED GLUCOSE; Start 10/19/16 at 00: 30 Acetaminophen (Tylenol Liquid) 650 mg Q4H PRN GTB PAIN OR ELEVATED TEMP.; Start 10/19/16 at 00:30 Ascorbic Acid (Vitamin C) 500 mg DAILY GTB Last administered on 10/24/16 09:15 ; Admin Dose 500 MG; Start 10/19/16 at 09:00 Nystatin (Nystatin Powder) 1 applic BID TOP Last administered on 10/24/16 09: 17; Admin Dose 1 APPLIC; Start 10/19/16 at 11:00 Lansoprazole (Prevacid) 30 mg DAILY@06 GTB Last administered on 10/24/16 05:43 ; Admin Dose 30 MG; Start 10/22/16 at 06:00 Lactobacillus Acidophilus/ Rhamnosus (Culturelle) 1 cap BID GTB Last administered on 10/24/16 09:16; Admin Dose 1 CAP; Start 10/21/16 at 21:00 Amikacin Sulfate AMIKACIN PER PHARMACY NOTE XX ; Start 10/22/16 at 14:00 Amikacin Sulfate/ Sodium Chloride (Amikacin/NS) 250 ml @ 250 mls/hr Q36H IVPB Last administered on 10/24/16 06:43; Admin Dose 250 MLS/HR; Start 10/24/16 at 06:00 Fluconazole (Diflucan) 100 mg DAILY PO Last administered on 10/24/16 09:15; Admin Dose 100 MG; Start 10/23/16 at 15:00 Nystatin (Nystatin Susp) 5 ml QID PO Last administered on 10/24/16 17:31; Admin Dose 5 ML; Start 10/23/16 at 17:00 JOSE DAVID NP October 24, 2016 19:58
[2016-10-25] VITALS (25 sets, daily range): BP systolic 99–150; BP diastolic 54–81; PULSE 48–55; RESP 14–20
[2016-10-25] MEDS: PIPER-TAZO 3.375 GM IV (PMX) 100 ML IVPB SCH ×3 (05:12→22:08)
[2016-10-25] MEDS: LANSOPRAZOLE 30 MG CAP GTB SCH (05:12)
[2016-10-25] MEDS: INSULIN ASPART [NOVOLOG] 3 ML PEN SC SCH ×4 (05:15→17:51)
[2016-10-25 06:04] LABS: ADD SCAN DIFF NO
[2016-10-25 06:06] LABS: BASOPHILS % 0.5 % (0.0-2.0); EOSINOPHILS # 0.4 10^3/ul (0.0-0.5); EOSINOPHILS % 4.8 % (0.0-7.0); HEMOGLOBIN 8.8 g/dl (14.0-18.0); LYMPHOCYTES # 1.3 10^3/ul (0.8-2.9); LYMPHOCYTES % 16.5 % (15.0-51.0); MEAN CORPUSCULAR HEMOGLOBIN 28.9 pg (29.0-33.0); MEAN CORPUSCULAR HGB CONC 31.4 g/dl (32.0-37.0); MEAN CORPUSCULAR VOLUME 91.8 fl (82.0-101.0); MEAN PLATELET VOLUME 9.3 fl (7.4-10.4); MONOCYTE # 0.8 10^3/ul (0.3-0.9); NEUTROPHIL # 5.5 10^3/ul (1.6-7.5); NEUTROPHILS % 67.3 % (39.0-77.0); PLATELET COUNT 339 10^3/UL (140-415); RED BLOOD COUNT 3.05 10^6/ul (4.70-6.10); RED CELL DISTRIBUTION WIDTH 16.8 % (11.5-14.5); WHITE BLOOD COUNT 8.1 10^3/ul (4.8-10.8)
[2016-10-25 06:41] LABS: CREATININE 0.45 mg/dl (0.61-1.24)
[2016-10-25 06:42] LABS: CALCIUM 8.4 mg/dl (8.4-10.2)
[2016-10-25] MEDS: BUDESONIDE (NEB) 0.5MG/2ML AMP HHN SCH ×2 (09:00→21:23)
[2016-10-25] MEDS: AMIODARONE 200 MG TAB GTB SCH (09:37)
[2016-10-25] MEDS: LACTOBACILLUS RHAMNOSUS CAP GTB SCH ×2 (09:38→20:35)
[2016-10-25] MEDS: MAGNESIUM HYDROXIDE 30ML CUP GTB SCH (09:38)
[2016-10-25] MEDS: ASCORBIC ACID 500 MG TAB GTB SCH (09:38)
[2016-10-25] MEDS: AMLODIPINE 5 MG TAB GTB SCH (09:38)
[2016-10-25] MEDS: METOPROLOL 25 MG TAB GTB SCH ×2 (09:38→21:00)
[2016-10-25] MEDS: ENOXAPARIN 40 MG/0.4 ML SYG SC SCH (09:39)
[2016-10-25] MEDS: CHLORHEXIDINE GLUCONATE 15 ML UD CUP MM SCH ×2 (09:39→20:37)
[2016-10-25] MEDS: FLUCONAZOLE 100 MG TAB PO SCH (09:39)
[2016-10-25] MEDS: NYSTATIN 30 GM POWDER BTL TOP SCH ×2 (09:39→20:37)
[2016-10-25] MEDS: TAMSULOSIN (SR) 0.4 MG CAP PO SCH (09:39)
[2016-10-25] MEDS: NYSTATIN SUSP 5 ML CUP PO SCH ×4 (09:39→20:37)
[2016-10-25] MEDS: traMADol 50 MG TAB GTB PRN ×3 (10:01→22:42)
--- NOTE | 2016-10-25 10:33 | PN ---
Date/Time of Note Date/Time of Note DATE: 10/25/16 TIME: 10:16 Assessment/Plan VTE Prophylaxis VTE Prophylaxis Intervention: LMWH Lines/Catheters IV C[facility] Type (from [facility] Saline Lock Urinary Cath still in place: No Reason Cath still needed: other (indicate) (condom catheter ) Assessment/Plan Assessment/Plan 86-year-old male with: 1. Acute on chronic respiratory failure, actually had episode of respiratory arrest requiring CPR, but rapidly resuscitated within 1 minute at SNF, per Son had previous episodes also at other SNF CT angiogram negative for PE Continue nebulizer treatment. Respi cx with Carbapenemase producing Kliebsiella Pneumoniae and also Pseudomonas. Repeat Sputum cx pending. Appreciate Dr Melvin's recommendations, continue Zosyn and Amikacin added. Continue aggressive pulmonary toilet and much improved with scant secretions currently and CXR better currently 2. Healthcare-associated Pneumonia versus ventilator-associated pneumonia with MDR and carbapenem resistant Klebsiella in resp cx ... CTA negative for PE and confirming atelectasis +PNA Repeat sputum cx pending. Contact isolation. Per ID continue Zosyn and Amikacin and f/u repeat sputum cx Much less secretions per RN and RT Repeat CXR unchanged since CT chest done. All in all improvement of Left lung infiltrate Repeat sputum cx pending 3. Chronic obstructive pulmonary disease also seen on CTA chest at least moderate to severe COPD Continue nebulizer treatments and abx Already on ventilatory support s/p trach 4. Paroxysmal atrial fibrillation, currently in sinus rhythm. In SR and on Amiodarone and metoprolol. 5. Status post cervical spine decompressive laminectomy, multilevel, C2 -C7 laminectomy and C2-T2 posterior fusion Unfortunately quadriparetic, status post respiratory failure, now trached, on ventilator. Resume physical therapy once the patient is more stable, Continue cervical collar, per records from SNF, the patient has it removed when eating and also when bathing and also for skin check which will be continued here. Will clarify the length of time the cervical collar needs to stay in place with the [facility] staff. 6. Status post PEG tube placement for feeding. Continue Tube feeding and free water. Monitor electrolytes, Na better. 7. Benign prostatic hypertrophy. Continue Flomax. 8. Reported history of prostate cancer. 9. Previous pulmonary embolus and pneumothorax resolved. It is unclear which side. CT angiogram chest negative for PE Continue Lovenox DVT prophylactic doses. Prophylaxis. Protonix for GI prophylaxis and Lovenox for deep venous thrombosis prophylaxis. DISPOSITION: Appreciate ID recs, continue IV antibiotics and Pulmonary toilet. D/c plan by Wednesday if Subacute bed available and if Ok with ID, Son updated. Subjective 24 Hr Interval Summary Free Text/Dictation Patient remains stable over the past 2 days at least with scant secretions per RN Discussed with Son and patient can actually go to Subacute within the next 48 hrs, no need for LTAC He wants to have a chance to check the options out prior to discharge Continue contact isolation and f/u repeat sputum cx for d/c planning Exam/Review of Systems Vital Signs Vitals Vital Signs Date Time Temp Pulse Resp B/P Pulse Ox O2 Delivery O2 Flow Rate FiO2 10/25/16 09:10 61 15 99 50 10/25/16 07:20 98.0 143/71 10/23/16 10:00 Mechanical Ventilator Intake and Output 10/24/16 10/24/16 10/25/16 15:00 23:00 07:00 Intake Total 660 ml 500 ml Output Total 400 ml 500 ml Balance 260 ml 0 ml Exam Constitutional: alert, oriented (x 2 to 3 at least ), other (quadriparetic ) Respiratory: diminished breath sounds (LLL ), other (much improved air movement ) Cardiovascular: nl pulses, regular rate and rhythm Gastrointestinal: non-tender, other (tolerating Tube feedings ), soft Musculoskeletal: nl extremities to inspection Extremities: normal pulses, other (no edema, clubbing or cyanosis ) Neurological: PALLIATIVE CARE PHYSICIAN II-XII intact, lethargic, other (quadriparesis ) Results Result Diagram: 10/25/1652910/25/16 0530 Results 24 hrs Laboratory Tests Test 10/24/16 12:50 10/24/16 17:30 10/25/16 00:22 10/25/16 05:11 Bedside Glucose 104 101 105 101 Test 10/25/16 05:20 10/25/16 05:30 Magnesium Level 2.3 White Blood Count 8.1 Red Blood Count 3.05 L Hemoglobin 8.8 L Hematocrit 28.0 L Mean Corpuscular Volume 91.8 Mean Corpuscular Hemoglobin 28.9 L Mean Corpuscular Hemoglobin Concent 31.4 L Red Cell Distribution Width 16.8 H Platelet Count 339 Mean Platelet Volume 9.3 Neutrophils % 67.3 Lymphocytes % 16.5 Monocytes % 10.0 Eosinophils % 4.8 Basophils % 0.5 Nucleated Red Blood Cells % 0.0 Neutrophils # 5.5 Lymphocytes # 1.3 Monocytes # 0.8 Eosinophils # 0.4 Basophils # 0.0 Nucleated Red Blood Cells # 0.0 Sodium Level 133 L Potassium Level 4.0 Chloride Level 100 Carbon Dioxide Level 25 Anion Gap 12 Blood Urea Nitrogen 12 Creatinine 0.45 L Glucose Level 96 Calcium Level 8.4 Medications Medications Current Medications Amiodarone HCl (Cordarone) 200 mg DAILY GTB Last administered on 10/25/16 09: 37; Admin Dose 200 MG; Start 10/19/16 at 09:00 Amlodipine Besylate (Norvasc) 5 mg DAILY GTB Last administered on 10/25/16 09: 38; Admin Dose 5 MG; Start 10/19/16 at 09:00 Baclofen (Lioresal) 5 mg Q8 PRN GTB MUSCLE SPASMS; Start 10/18/16 at 23:00 Bisacodyl (Dulcolax Supp) 10 mg PRN PRN [place] CONSTIPATION; Start 10/18/16 at 23:00 Chlorhexidine Gluconate (Peridex) 15 ml Q12 MM Last administered on 10/25/16 09:39; Admin Dose 15 ML; Start 10/19/16 at 09:00 Clonidine (Catapres) 0.1 mg Q6 PRN GTB ELEVATED BLOOD PRESSURE>150; Start at 23:00 Enoxaparin Sodium (Lovenox) 40 mg DAILY SC Last administered on 10/25/16 09:39 ; Admin Dose 40 MG; Start 10/19/16 at 09:00 Magnesium Hydroxide (Milk Of Mag) 30 ml DAILY GTB Last administered on 09:38; Admin Dose 30 ML; Start 10/19/16 at 09:00 Metoprolol Tartrate (Lopressor) 12.5 mg BID GTB Last administered on 10/25/16 09:38; Admin Dose 12.5 MG; Start 10/19/16 at 09:00 Sodium Biphosphate/ Sodium Phosphate (Fleet Enema) 133 ml DAILY PRN [place] CONSTIPATION; Start 10/18/16 at 23:00 Tamsulosin HCl (Flomax) 0.4 mg DAILY PO Last administered on 10/25/16 09:39; Admin Dose 0.4 MG; Start 10/19/16 at 09:00 Tramadol HCl 50 mg 50 mg Q6 PRN GTB SEVERE PAIN LEVEL 7-10 Last administered on 10/25/16 10:01; Admin Dose 50 MG; Start 10/18/16 at 23:00 Piperacillin Sod/ Tazobactam Sod (Zosyn 3.375gm/ 100 ml (Pmx)) 100 ml @ 200 mls /hr Q8 IVPB Last administered on 10/25/16 05:12; Admin Dose 200 MLS/HR; Start 10/19/16 at 06:00 Insulin Aspart (Novolog Insulin Pen) NOVOLOG *MODERATE* ALGORI... Q6 SC ; Start 10/19/16 at 00:00 Miscellaneous Information 1 ea NOTE XX ; Start 10/19/16 at 00:30 Glucose (Glutose) 15 gm Q15M PRN PO DECREASED GLUCOSE; Start 10/19/16 at 00:30 Glucose (Glutose) 22.5 gm Q15M PRN PO DECREASED GLUCOSE; Start 10/19/16 at 00:30 Dextrose (D50w Syringe) 25 ml Q15M PRN IV DECREASED GLUCOSE; Start 10/19/16 at 00:30 Dextrose (D50w Syringe) 50 ml Q15M PRN IV DECREASED GLUCOSE; Start 10/19/16 at 00:30 Glucagon (Glucagen) 1 mg Q15M PRN IM DECREASED GLUCOSE; Start 10/19/16 at 00:30 Glucose (Glutose) 15 gm Q15M PRN BUCCAL DECREASED GLUCOSE; Start 10/19/16 at 00: 30 Acetaminophen (Tylenol Liquid) 650 mg Q4H PRN GTB PAIN OR ELEVATED TEMP.; Start 10/19/16 at 00:30 Ascorbic Acid (Vitamin C) 500 mg DAILY GTB Last administered on 10/25/16 09:38 ; Admin Dose 500 MG; Start 10/19/16 at 09:00 Nystatin (Nystatin Powder) 1 applic BID TOP Last administered on 10/25/16 09: 39; Admin Dose 1 APPLIC; Start 10/19/16 at 11:00 Lansoprazole (Prevacid) 30 mg DAILY@06 GTB Last administered on 10/25/16 05:12 ; Admin Dose 30 MG; Start 10/22/16 at 06:00 Lactobacillus Acidophilus/ Rhamnosus (Culturelle) 1 cap BID GTB Last administered on 10/25/16 09:38; Admin Dose 1 CAP; Start 10/21/16 at 21:00 Amikacin Sulfate AMIKACIN PER PHARMACY NOTE XX ; Start 10/22/16 at 14:00 Amikacin Sulfate/ Sodium Chloride (Amikacin/NS) 250 ml @ 250 mls/hr Q36H IVPB Last administered on 10/24/16 06:43; Admin Dose 250 MLS/HR; Start 10/24/16 at 06:00 Fluconazole (Diflucan) 100 mg DAILY PO Last administered on 10/25/16 09:39; Admin Dose 100 MG; Start 10/23/16 at 15:00 Nystatin (Nystatin Susp) 5 ml QID PO Last administered on 10/25/16 09:39; Admin Dose 5 ML; Start 10/23/16 at 17:00 Miscellaneous Information (*Rx Drug Level Order Reminder*) AMIKACIN TROUGH AT 1... ONCE ONCE XX ; Start 10/25/16 at 17:00; Stop 10/25/16 at 17:01 BETTINA ROSE October 25, 2016 10:29
[2016-10-25] MEDS: BACLOFEN 10 MG TAB GTB SCH ×2 (15:39→20:36)
--- NOTE | 2016-10-25 15:57 | CONS ---
Date/Time of Note Date/Time of Note DATE: 10/25/16 TIME: 15:56 Assessment/Plan Assessment/Plan Chief Complaint/Hosp Course SUBJECTIVE: No acute changes. The patient is alert, looks comfortable. No fevers. MICROBIOLOGY: Sputum culture grew Klebsiella and Pseudomonas aeruginosa. INDWELLINGS: Trach, PEG, Mireles. ANTIMICROBIALS: The patient is on: 1. Amikacin. 2. Zosyn. 3. Diflucan PHYSICAL EXAMINATION: GENERAL: This is a fragile, chronically ill-appearing, elderly man who is awake , in no distress. HEENT: Head atraumatic, normocephalic. Sclerae anicteric. Buccal mucosa dry. NECK: Supple. CHEST: Chest rise is symmetrical. Breath sounds diminished to the bases. HEART: S1, S2. ABDOMEN: Soft, bowel tones present. EXTREMITIES: No cyanosis. ASSESSMENT: 1. Healthcare-associated pneumonia. 2. Status post sepsis. 3. Oral thrush. 4. Chronic respiratory failure. 5. Dysphagia. 6. 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 7. Oral thrush PLAN: The patient remains stable. Continue abx, f/u cxr, f/u repeat sputum cx [facility] staff Problems: Consultation Date/Type/Reason Admit Date/Time October 18, 2016 at 20:27 Type of Consultation: ID Exam/Review of Systems Vital Signs Vitals Vital Signs Date Time Temp Pulse Resp B/P Pulse Ox O2 Delivery O2 Flow Rate FiO2 10/25/16 15:10 98.2 57 18 150/68 100 10/25/16 13:05 50 10/23/16 10:00 Mechanical Ventilator Intake and Output 10/24/16 10/24/16 10/25/16 15:00 23:00 07:00 Intake Total 660 ml 500 ml Output Total 400 ml 500 ml Balance 260 ml 0 ml Results Result Diagram: 10/25/16 0530 10/25/16 0530 Results 24 hrs Laboratory Tests Test 10/24/16 17:30 10/25/16 00:22 10/25/16 05:11 10/25/16 05:20 Bedside Glucose 101 105 101 Magnesium Level 2.3 Test 10/25/16 05:30 10/25/16 12:17 White Blood Count 8.1 Red Blood Count 3.05 L Hemoglobin 8.8 L Hematocrit 28.0 L Mean Corpuscular Volume 91.8 Mean Corpuscular Hemoglobin 28.9 L Mean Corpuscular Hemoglobin Concent 31.4 L Red Cell Distribution Width 16.8 H Platelet Count 339 Mean Platelet Volume 9.3 Neutrophils % 67.3 Lymphocytes % 16.5 Monocytes % 10.0 Eosinophils % 4.8 Basophils % 0.5 Nucleated Red Blood Cells % 0.0 Neutrophils # 5.5 Lymphocytes # 1.3 Monocytes # 0.8 Eosinophils # 0.4 Basophils # 0.0 Nucleated Red Blood Cells # 0.0 Sodium Level 133 L Potassium Level 4.0 Chloride Level 100 Carbon Dioxide Level 25 Anion Gap 12 Blood Urea Nitrogen 12 Creatinine 0.45 L Glucose Level 96 Calcium Level 8.4 Bedside Glucose 100 Medications Medications Current Medications Amiodarone HCl (Cordarone) 200 mg DAILY GTB Last administered on 10/25/16 09: 37; Admin Dose 200 MG; Start 10/19/16 at 09:00 Amlodipine Besylate (Norvasc) 5 mg DAILY GTB Last administered on 10/25/16 09: 38; Admin Dose 5 MG; Start 10/19/16 at 09:00 Bisacodyl (Dulcolax Supp) 10 mg PRN PRN [place] CONSTIPATION; Start 10/18/16 at 23:00 Chlorhexidine Gluconate (Peridex) 15 ml Q12 MM Last administered on 10/25/16 09:39; Admin Dose 15 ML; Start 10/19/16 at 09:00 Clonidine (Catapres) 0.1 mg Q6 PRN GTB ELEVATED BLOOD PRESSURE>150; Start at 23:00 Enoxaparin Sodium (Lovenox) 40 mg DAILY SC Last administered on 10/25/16 09:39 ; Admin Dose 40 MG; Start 10/19/16 at 09:00 Magnesium Hydroxide (Milk Of Mag) 30 ml DAILY GTB Last administered on 09:38; Admin Dose 30 ML; Start 10/19/16 at 09:00 Metoprolol Tartrate (Lopressor) 12.5 mg BID GTB Last administered on 10/25/16 09:38; Admin Dose 12.5 MG; Start 10/19/16 at 09:00 Sodium Biphosphate/ Sodium Phosphate (Fleet Enema) 133 ml DAILY PRN [place] CONSTIPATION; Start 10/18/16 at 23:00 Tamsulosin HCl (Flomax) 0.4 mg DAILY PO Last administered on 10/25/16 09:39; Admin Dose 0.4 MG; Start 10/19/16 at 09:00 Tramadol HCl 50 mg 50 mg Q6 PRN GTB SEVERE PAIN LEVEL 7-10 Last administered on 10/25/16 10:01; Admin Dose 50 MG; Start 10/18/16 at 23:00 Piperacillin Sod/ Tazobactam Sod (Zosyn 3.375gm/ 100 ml (Pmx)) 100 ml @ 200 mls /hr Q8 IVPB Last administered on 10/25/16 14:38; Admin Dose 200 MLS/HR; Start 10/19/16 at 06:00 Insulin Aspart (Novolog Insulin Pen) NOVOLOG *MODERATE* ALGORI... Q6 SC ; Start 10/19/16 at 00:00 Miscellaneous Information 1 ea NOTE XX ; Start 10/19/16 at 00:30 Glucose (Glutose) 15 gm Q15M PRN PO DECREASED GLUCOSE; Start 10/19/16 at 00:30 Glucose (Glutose) 22.5 gm Q15M PRN PO DECREASED GLUCOSE; Start 10/19/16 at 00:30 Dextrose (D50w Syringe) 25 ml Q15M PRN IV DECREASED GLUCOSE; Start 10/19/16 at 00:30 Dextrose (D50w Syringe) 50 ml Q15M PRN IV DECREASED GLUCOSE; Start 10/19/16 at 00:30 Glucagon (Glucagen) 1 mg Q15M PRN IM DECREASED GLUCOSE; Start 10/19/16 at 00:30 Glucose (Glutose) 15 gm Q15M PRN BUCCAL DECREASED GLUCOSE; Start 10/19/16 at 00: 30 Acetaminophen (Tylenol Liquid) 650 mg Q4H PRN GTB PAIN OR ELEVATED TEMP.; Start 10/19/16 at 00:30 Ascorbic Acid (Vitamin C) 500 mg DAILY GTB Last administered on 10/25/16 09:38 ; Admin Dose 500 MG; Start 10/19/16 at 09:00 Nystatin (Nystatin Powder) 1 applic BID TOP Last administered on 10/25/16 09: 39; Admin Dose 1 APPLIC; Start 10/19/16 at 11:00 Lansoprazole (Prevacid) 30 mg DAILY@06 GTB Last administered on 10/25/16 05:12 ; Admin Dose 30 MG; Start 10/22/16 at 06:00 Lactobacillus Acidophilus/ Rhamnosus (Culturelle) 1 cap BID GTB Last administered on 10/25/16 09:38; Admin Dose 1 CAP; Start 10/21/16 at 21:00 Amikacin Sulfate AMIKACIN PER PHARMACY NOTE XX ; Start 10/22/16 at 14:00 Amikacin Sulfate/ Sodium Chloride (Amikacin/NS) 250 ml @ 250 mls/hr Q36H IVPB Last administered on 10/24/16 06:43; Admin Dose 250 MLS/HR; Start 10/24/16 at 06:00 Fluconazole (Diflucan) 100 mg DAILY PO Last administered on 10/25/16 09:39; Admin Dose 100 MG; Start 10/23/16 at 15:00 Nystatin (Nystatin Susp) 5 ml QID PO Last administered on 10/25/16 14:38; Admin Dose 5 ML; Start 10/23/16 at 17:00 Miscellaneous Information (*Rx Drug Level Order Reminder*) AMIKACIN TROUGH AT 1... ONCE ONCE XX ; Start 10/25/16 at 17:00; Stop 10/25/16 at 17:01 Baclofen (Lioresal) 5 mg TID GTB Last administered on 10/25/16 15:39; Admin Dose 5 MG; Start 10/25/16 at 15:30 JOSE DAVID NP October 25, 2016 15:57
[2016-10-25] MEDS: AMIKACIN IVPB SCH (20:34)
[2016-10-25] MEDS: SOD CHLORIDE 0.9% IVPB SCH (20:34)
[2016-10-25] MEDS ORDERED: BACLOFEN 10 MG TAB GTB SCH (21:00)
[2016-10-26] VITALS (23 sets, daily range): BP systolic 107–141; BP diastolic 59–70; PULSE 42–54; RESP 14–18
[2016-10-26] MEDS: INSULIN ASPART [NOVOLOG] 3 ML PEN SC SCH ×4 (06:00→17:21)
[2016-10-26] MEDS: LANSOPRAZOLE 30 MG CAP GTB SCH (06:12)
[2016-10-26] MEDS: PIPER-TAZO 3.375 GM IV (PMX) 100 ML IVPB SCH ×3 (06:13→22:05)
[2016-10-26 07:11] LABS: ADD SCAN DIFF NO
[2016-10-26 07:22] LABS: BASOPHILS % 0.5 % (0.0-2.0); EOSINOPHILS # 0.5 10^3/ul (0.0-0.5); EOSINOPHILS % 5.7 % (0.0-7.0); HEMATOCRIT 30.7 % (42.0-52.0); HEMOGLOBIN 9.8 g/dl (14.0-18.0); LYMPHOCYTES # 1.4 10^3/ul (0.8-2.9); LYMPHOCYTES % 16.7 % (15.0-51.0); MEAN CORPUSCULAR HEMOGLOBIN 29.3 pg (29.0-33.0); MEAN CORPUSCULAR HGB CONC 31.9 g/dl (32.0-37.0); MEAN CORPUSCULAR VOLUME 91.6 fl (82.0-101.0); MONOCYTE # 0.8 10^3/ul (0.3-0.9); MONOCYTES % 9.2 % (0.0-11.0); NEUTROPHIL # 5.7 10^3/ul (1.6-7.5); NEUTROPHILS % 66.3 % (39.0-77.0); PLATELET COUNT 345 10^3/UL (140-415); RED BLOOD COUNT 3.35 10^6/ul (4.70-6.10); RED CELL DISTRIBUTION WIDTH 16.6 % (11.5-14.5); WHITE BLOOD COUNT 8.6 10^3/ul (4.8-10.8)
[2016-10-26 07:54] LABS: MAGNESIUM 2.3 mg/dl (1.7-2.5); PHOSPHORUS 2.8 mg/dl (2.5-4.9)
[2016-10-26 07:54] LABS: CALCIUM 8.8 mg/dl (8.4-10.2); CREATININE 0.47 mg/dl (0.61-1.24); POTASSIUM 4.2 mmol/L (3.5-5.1)
[2016-10-26] MEDS: ASCORBIC ACID 500 MG TAB GTB SCH (08:52)
[2016-10-26] MEDS: FLUCONAZOLE 100 MG TAB PO SCH (08:52)
[2016-10-26] MEDS: MAGNESIUM HYDROXIDE 30ML CUP GTB SCH (08:53)
[2016-10-26] MEDS: CHLORHEXIDINE GLUCONATE 15 ML UD CUP MM SCH ×2 (08:53→20:48)
[2016-10-26] MEDS: NYSTATIN SUSP 5 ML CUP PO SCH ×4 (08:53→20:48)
[2016-10-26] MEDS: AMLODIPINE 5 MG TAB GTB SCH (08:53)
[2016-10-26] MEDS: METOPROLOL 25 MG TAB GTB SCH ×2 (08:53→20:49)
[2016-10-26] MEDS: TAMSULOSIN (SR) 0.4 MG CAP PO SCH (08:54)
[2016-10-26] MEDS: BACLOFEN 10 MG TAB GTB SCH ×3 (08:54→20:49)
[2016-10-26] MEDS: AMIODARONE 200 MG TAB GTB SCH (08:54)
[2016-10-26] MEDS: LACTOBACILLUS RHAMNOSUS CAP GTB SCH ×2 (08:54→20:48)
[2016-10-26] MEDS: NYSTATIN 30 GM POWDER BTL TOP SCH ×2 (08:55→20:54)
[2016-10-26] MEDS: ENOXAPARIN 40 MG/0.4 ML SYG SC SCH (09:39)
[2016-10-26] MEDS: BUDESONIDE (NEB) 0.5MG/2ML AMP HHN SCH ×2 (10:08→19:17)
[2016-10-26] MEDS: traMADol 50 MG TAB GTB PRN (11:47)
--- NOTE | 2016-10-26 11:57 | PN ---
Date/Time of Note Date/Time of Note DATE: 10/26/16 TIME: 11:44 Assessment/Plan VTE Prophylaxis VTE Prophylaxis Intervention: LMWH Lines/Catheters IV [facility]ter [facility]from [facility] Urinary Cath still in place: No (CONDOM CATHETER. ) Assessment/Plan Assessment/Plan 86-year-old male with: 1. Acute on chronic respiratory failure, actually had episode of respiratory arrest requiring CPR, but rapidly resuscitated within 1 minute at Subacute facility, per Son had previous episodes also at other SNF CT angiogram negative for PE Continue nebulizer treatment. Respi cx with Carbapenemase producing Kliebsiella Pneumoniae and also Pseudomonas. Repeat Sputum cx seems to be growing the same, if Ok with ID will plan for discharge in the next 24 hrs if isolation bed available at a subacute facility on Zosyn and Amikacin . F/u ID recs Continue aggressive pulmonary toilet and much improved with scant secretions currently and CXR better currently 2. Healthcare-associated Pneumonia versus ventilator-associated pneumonia with MDR and carbapenem resistant Klebsiella in resp cx ... CTA negative for PE and confirming atelectasis +PNA Contact isolation. Per ID continue Zosyn and Amikacin. Much less secretions per RN and RT Repeat CXR unchanged since CT chest done. All in all improvement of Left lung infiltrate. 3. Chronic obstructive pulmonary disease also seen on CTA chest at least moderate to severe COPD Continue nebulizer treatments and abx Already on ventilatory support s/p trach Will aim for FiO2 close to 35 % if possible. 4. Paroxysmal atrial fibrillation, currently in sinus rhythm. In SR and on Amiodarone and metoprolol. 5. Status post cervical spine decompressive laminectomy, multilevel, C2 -C7 laminectomy and C2-T2 posterior fusion Unfortunately quadriparetic, status post respiratory failure, now trached, on ventilator. Resume physical therapy once the patient is more stable, Continue cervical collar, per records from SNF, the patient has it removed when eating and also when bathing and also for skin check which will be continued here. Will clarify the length of time the cervical collar needs to stay in place with the detention facility staff. 6. Status post PEG tube placement for feeding. Continue Tube feeding and free water. Monitor electrolytes, Na better. 7. Benign prostatic hypertrophy. Continue Flomax. 8. Reported history of prostate cancer. 9. Previous pulmonary embolus and pneumothorax resolved. It is unclear which side. CT angiogram chest negative for PE Continue Lovenox DVT prophylactic doses. Prophylaxis. Protonix for GI prophylaxis and Lovenox for deep venous thrombosis prophylaxis. DISPOSITION: Appreciate ID recs, continue IV antibiotics and Pulmonary toilet. D/c plan by Tomorrow if isolation subacute bed available and if Ok with ID. Subjective 24 Hr Interval Summary Free Text/Dictation Patient remains stable and on appropriate abx D/c plan to subacute in the next 24 hrs if bed available Exam/Review of Systems Vital Signs Vitals Vital Signs Date Time Temp Pulse Resp B/P Pulse Ox O2 Delivery O2 Flow Rate FiO2 10/26/16 09:20 44 14 100 50 10/26/16 07:12 98.0 141/70 10/23/16 10:00 Mechanical Ventilator Intake and Output 10/25/16 10/25/16 10/26/16 15:00 23:00 07:00 Intake Total 660 ml 910 ml Output Total 2200 ml 600 ml Balance -1540 ml 310 ml Exam Constitutional: alert, oriented, well developed Respiratory: diminished breath sounds (LL base much improved ), other (on Vent with FiO2 50% for now ) Cardiovascular: nl pulses, regular rate and rhythm Gastrointestinal: non-tender, soft Musculoskeletal: other (some contractures ) Extremities: normal pulses, other (no edema, clubbign or cyanosis ) Neurological: PAYROLL ASSOCIATE II-XII intact, lethargic, nl mental status, other ( quadriparesis ) Results Result Diagram: 10/26/16 0650 10/26/16 0630 Results 24 hrs Laboratory Tests Test 10/25/16 12:17 10/25/16 16:48 10/25/16 17:43 10/26/16 00:35 Bedside Glucose 100 102 116 Amikacin Level Trough Test 10/26/16 06:07 10/26/16 06:30 10/26/16 06:50 10/26/16 07:56 Bedside Glucose 112 Sodium Level 131 L Potassium Level 4.2 Chloride Level 101 Carbon Dioxide Level 25 Anion Gap 9 Blood Urea Nitrogen 11 Creatinine 0.47 L Glucose Level 104 Calcium Level 8.8 White Blood Count 8.6 Red Blood Count 3.35 L Hemoglobin 9.8 L Hematocrit 30.7 L Mean Corpuscular Volume 91.6 Mean Corpuscular Hemoglobin 29.3 Mean Corpuscular Hemoglobin Concent 31.9 L Red Cell Distribution Width 16.6 H Platelet Count 345 Mean Platelet Volume 9.0 Neutrophils % 66.3 Lymphocytes % 16.7 Monocytes % 9.2 Eosinophils % 5.7 Basophils % 0.5 Nucleated Red Blood Cells % 0.0 Neutrophils # 5.7 Lymphocytes # 1.4 Monocytes # 0.8 Eosinophils # 0.5 Basophils # 0.0 Nucleated Red Blood Cells # 0.0 Phosphorus Level 2.8 Magnesium Level 2.3 Lab Scanned Report REFERENCE LAB Medications Medications Current Medications Amiodarone HCl (Cordarone) 200 mg DAILY GTB Last administered on 10/26/16 08: 54; Admin Dose 200 MG; Start 10/19/16 at 09:00 Amlodipine Besylate (Norvasc) 5 mg DAILY GTB Last administered on 10/26/16 08: 53; Admin Dose 5 MG; Start 10/19/16 at 09:00 Bisacodyl (Dulcolax Supp) 10 mg PRN PRN [place] CONSTIPATION; Start 10/18/16 at 23:00 Chlorhexidine Gluconate (Peridex) 15 ml Q12 MM Last administered on 10/26/16 08:53; Admin Dose 15 ML; Start 10/19/16 at 09:00 Clonidine (Catapres) 0.1 mg Q6 PRN GTB ELEVATED BLOOD PRESSURE>150; Start at 23:00 Enoxaparin Sodium (Lovenox) 40 mg DAILY SC Last administered on 10/26/16 09:39 ; Admin Dose 40 MG; Start 10/19/16 at 09:00 Magnesium Hydroxide (Milk Of Mag) 30 ml DAILY GTB Last administered on 08:53; Admin Dose 30 ML; Start 10/19/16 at 09:00 Metoprolol Tartrate (Lopressor) 12.5 mg BID GTB Last administered on 10/25/16 09:38; Admin Dose 12.5 MG; Start 10/19/16 at 09:00 Sodium Biphosphate/ Sodium Phosphate (Fleet Enema) 133 ml DAILY PRN [place] CONSTIPATION; Start 10/18/16 at 23:00 Tamsulosin HCl (Flomax) 0.4 mg DAILY PO Last administered on 10/26/16 08:54; Admin Dose 0.4 MG; Start 10/19/16 at 09:00 Tramadol HCl 50 mg 50 mg Q6 PRN GTB SEVERE PAIN LEVEL 7-10 Last administered on 10/25/16 22:42; Admin Dose 50 MG; Start 10/18/16 at 23:00 Piperacillin Sod/ Tazobactam Sod (Zosyn 3.375gm/ 100 ml (Pmx)) 100 ml @ 200 mls /hr Q8 IVPB Last administered on 10/26/16 06:13; Admin Dose 200 MLS/HR; Start 10/19/16 at 06:00 Insulin Aspart (Novolog Insulin Pen) NOVOLOG *MODERATE* ALGORI... Q6 SC ; Start 10/19/16 at 00:00 Miscellaneous Information 1 ea NOTE XX ; Start 10/19/16 at 00:30 Glucose (Glutose) 15 gm Q15M PRN PO DECREASED GLUCOSE; Start 10/19/16 at 00:30 Glucose (Glutose) 22.5 gm Q15M PRN PO DECREASED GLUCOSE; Start 10/19/16 at 00:30 Dextrose (D50w Syringe) 25 ml Q15M PRN IV DECREASED GLUCOSE; Start 10/19/16 at 00:30 Dextrose (D50w Syringe) 50 ml Q15M PRN IV DECREASED GLUCOSE; Start 10/19/16 at 00:30 Glucagon (Glucagen) 1 mg Q15M PRN IM DECREASED GLUCOSE; Start 10/19/16 at 00:30 Glucose (Glutose) 15 gm Q15M PRN BUCCAL DECREASED GLUCOSE; Start 10/19/16 at 00: 30 Acetaminophen (Tylenol Liquid) 650 mg Q4H PRN GTB PAIN OR ELEVATED TEMP.; Start 10/19/16 at 00:30 Ascorbic Acid (Vitamin C) 500 mg DAILY GTB Last administered on 10/26/16 08:52 ; Admin Dose 500 MG; Start 10/19/16 at 09:00 Nystatin (Nystatin Powder) 1 applic BID TOP Last administered on 10/26/16 08: 55; Admin Dose 1 APPLIC; Start 10/19/16 at 11:00 Lansoprazole (Prevacid) 30 mg DAILY@06 GTB Last administered on 10/26/16 06:12 ; Admin Dose 30 MG; Start 10/22/16 at 06:00 Lactobacillus Acidophilus/ Rhamnosus (Culturelle) 1 cap BID GTB Last administered on 10/26/16 08:54; Admin Dose 1 CAP; Start 10/21/16 at 21:00 Amikacin Sulfate AMIKACIN PER PHARMACY NOTE XX ; Start 10/22/16 at 14:00 Amikacin Sulfate/ Sodium Chloride (Amikacin/NS) 250 ml @ 250 mls/hr Q36H IVPB Last administered on 10/25/16 20:34; Admin Dose 250 MLS/HR; Start 10/24/16 at 06:00 Fluconazole (Diflucan) 100 mg DAILY PO Last administered on 10/26/16 08:52; Admin Dose 100 MG; Start 10/23/16 at 15:00 Nystatin (Nystatin Susp) 5 ml QID PO Last administered on 10/26/16 08:53; Admin Dose 5 ML; Start 10/23/16 at 17:00 Baclofen (Lioresal) 5 mg TID GTB Last administered on 10/26/16 08:54; Admin Dose 5 MG; Start 10/25/16 at 15:30 BETTINA ROSE October 26, 2016 11:57
--- NOTE | 2016-10-26 13:44 | CONS ---
Date/Time of Note Date/Time of Note DATE: 10/26/16 TIME: 13:43 Assessment/Plan Assessment/Plan Chief Complaint/Hosp Course SUBJECTIVE: No acute changes. The patient is alert, looks comfortable. No fevers. MICROBIOLOGY: Sputum culture grew Klebsiella and Pseudomonas aeruginosa. INDWELLINGS: Trach, PEG, Mireles. ANTIMICROBIALS: The patient is on: 1. Amikacin. 2. Zosyn. 3. Diflucan PHYSICAL EXAMINATION: GENERAL: This is a fragile, chronically ill-appearing, elderly man who is awake , in no distress. HEENT: Head atraumatic, normocephalic. Sclerae anicteric. Buccal mucosa dry. NECK: Supple. CHEST: Chest rise is symmetrical. Breath sounds diminished to the bases. HEART: S1, S2. ABDOMEN: Soft, bowel tones present. EXTREMITIES: No cyanosis. ASSESSMENT: 1. Healthcare-associated pneumonia. 2. Status post sepsis. 3. Oral thrush. 4. Chronic respiratory failure. 5. Dysphagia. 6. 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 7. Oral thrush==> improving PLAN: The patient remains stable. Continue abx for total of 2 weeks, pending acute rehab [facility] staff Problems: Consultation Date/Type/Reason Admit Date/Time October 18, 2016 at 20:27 Type of Consultation: ID Exam/Review of Systems Vital Signs Vitals Vital Signs Date Time Temp Pulse Resp B/P Pulse Ox O2 Delivery O2 Flow Rate FiO2 10/26/16 13:05 52 10/26/16 11:58 98.0 18 123/67 98 10/26/16 11:20 40 10/23/16 10:00 Mechanical Ventilator Intake and Output 10/25/16 10/25/16 10/26/16 15:00 23:00 07:00 Intake Total 660 ml 910 ml Output Total 2200 ml 600 ml Balance -1540 ml 310 ml Results Result Diagram: 10/26/16 0650 10/26/16 0630 Results 24 hrs Laboratory Tests Test 10/25/16 16:48 10/25/16 17:43 10/26/16 00:35 10/26/16 06:07 Amikacin Level Trough Bedside Glucose 102 116 112 Test 10/26/16 06:30 10/26/16 06:50 10/26/16 07:56 10/26/16 13:00 Sodium Level 131 L Potassium Level 4.2 Chloride Level 101 Carbon Dioxide Level 25 Anion Gap 9 Blood Urea Nitrogen 11 Creatinine 0.47 L Glucose Level 104 Calcium Level 8.8 White Blood Count 8.6 Red Blood Count 3.35 L Hemoglobin 9.8 L Hematocrit 30.7 L Mean Corpuscular Volume 91.6 Mean Corpuscular Hemoglobin 29.3 Mean Corpuscular Hemoglobin Concent 31.9 L Red Cell Distribution Width 16.6 H Platelet Count 345 Mean Platelet Volume 9.0 Neutrophils % 66.3 Lymphocytes % 16.7 Monocytes % 9.2 Eosinophils % 5.7 Basophils % 0.5 Nucleated Red Blood Cells % 0.0 Neutrophils # 5.7 Lymphocytes # 1.4 Monocytes # 0.8 Eosinophils # 0.5 Basophils # 0.0 Nucleated Red Blood Cells # 0.0 Phosphorus Level 2.8 Magnesium Level 2.3 Lab Scanned Report REFERENCE LAB Bedside Glucose 97 Medications Medications Current Medications Amiodarone HCl (Cordarone) 200 mg DAILY GTB Last administered on 10/26/16 08: 54; Admin Dose 200 MG; Start 10/19/16 at 09:00 Amlodipine Besylate (Norvasc) 5 mg DAILY GTB Last administered on 10/26/16 08: 53; Admin Dose 5 MG; Start 10/19/16 at 09:00 Bisacodyl (Dulcolax Supp) 10 mg PRN PRN [place] CONSTIPATION; Start 10/18/16 at 23:00 Chlorhexidine Gluconate (Peridex) 15 ml Q12 MM Last administered on 10/26/16 08:53; Admin Dose 15 ML; Start 10/19/16 at 09:00 Clonidine (Catapres) 0.1 mg Q6 PRN GTB ELEVATED BLOOD PRESSURE>150; Start at 23:00 Enoxaparin Sodium (Lovenox) 40 mg DAILY SC Last administered on 10/26/16 09:39 ; Admin Dose 40 MG; Start 10/19/16 at 09:00 Magnesium Hydroxide (Milk Of Mag) 30 ml DAILY GTB Last administered on 08:53; Admin Dose 30 ML; Start 10/19/16 at 09:00 Metoprolol Tartrate (Lopressor) 12.5 mg BID GTB Last administered on 10/25/16 09:38; Admin Dose 12.5 MG; Start 10/19/16 at 09:00 Sodium Biphosphate/ Sodium Phosphate (Fleet Enema) 133 ml DAILY PRN [place] CONSTIPATION; Start 10/18/16 at 23:00 Tamsulosin HCl (Flomax) 0.4 mg DAILY PO Last administered on 10/26/16 08:54; Admin Dose 0.4 MG; Start 10/19/16 at 09:00 Tramadol HCl 50 mg 50 mg Q6 PRN GTB SEVERE PAIN LEVEL 7-10 Last administered on 10/26/16 11:47; Admin Dose 50 MG; Start 10/18/16 at 23:00 Piperacillin Sod/ Tazobactam Sod (Zosyn 3.375gm/ 100 ml (Pmx)) 100 ml @ 200 mls /hr Q8 IVPB Last administered on 10/26/16 06:13; Admin Dose 200 MLS/HR; Start 10/19/16 at 06:00 Insulin Aspart (Novolog Insulin Pen) NOVOLOG *MODERATE* ALGORI... Q6 SC ; Start 10/19/16 at 00:00 Miscellaneous Information 1 ea NOTE XX ; Start 10/19/16 at 00:30 Glucose (Glutose) 15 gm Q15M PRN PO DECREASED GLUCOSE; Start 10/19/16 at 00:30 Glucose (Glutose) 22.5 gm Q15M PRN PO DECREASED GLUCOSE; Start 10/19/16 at 00:30 Dextrose (D50w Syringe) 25 ml Q15M PRN IV DECREASED GLUCOSE; Start 10/19/16 at 00:30 Dextrose (D50w Syringe) 50 ml Q15M PRN IV DECREASED GLUCOSE; Start 10/19/16 at 00:30 Glucagon (Glucagen) 1 mg Q15M PRN IM DECREASED GLUCOSE; Start 10/19/16 at 00:30 Glucose (Glutose) 15 gm Q15M PRN BUCCAL DECREASED GLUCOSE; Start 10/19/16 at 00: 30 Acetaminophen (Tylenol Liquid) 650 mg Q4H PRN GTB PAIN OR ELEVATED TEMP.; Start 10/19/16 at 00:30 Ascorbic Acid (Vitamin C) 500 mg DAILY GTB Last administered on 10/26/16 08:52 ; Admin Dose 500 MG; Start 10/19/16 at 09:00 Nystatin (Nystatin Powder) 1 applic BID TOP Last administered on 10/26/16 08: 55; Admin Dose 1 APPLIC; Start 10/19/16 at 11:00 Lansoprazole (Prevacid) 30 mg DAILY@06 GTB Last administered on 10/26/16 06:12 ; Admin Dose 30 MG; Start 10/22/16 at 06:00 Lactobacillus Acidophilus/ Rhamnosus (Culturelle) 1 cap BID GTB Last administered on 10/26/16 08:54; Admin Dose 1 CAP; Start 10/21/16 at 21:00 Amikacin Sulfate (Amikacin Iv Per Pharmacy) AMIKACIN PER PHARMACY NOTE XX ; Start 10/22/16 at 14:00 Fluconazole (Diflucan) 100 mg DAILY PO Last administered on 10/26/16 08:52; Admin Dose 100 MG; Start 10/23/16 at 15:00 Nystatin (Nystatin Susp) 5 ml QID PO Last administered on 10/26/16 08:53; Admin Dose 5 ML; Start 10/23/16 at 17:00 Baclofen 5 mg 5 mg TID GTB Last administered on 10/26/16 08:54; Admin Dose 5 MG; Start 10/25/16 at 15:30 Amikacin Sulfate/ Sodium Chloride (Amikacin/NS) 250 ml @ 250 mls/hr Q36H IVPB ; Start 10/27/16 at 09:00 JOSE DAVID NP October 26, 2016 13:44
[2016-10-27] VITALS (25 sets, daily range): BP systolic 100–141; BP diastolic 54–72; PULSE 46–56; RESP 14–24
[2016-10-27] MEDS: LANSOPRAZOLE 30 MG CAP GTB SCH (05:59)
[2016-10-27] MEDS: INSULIN ASPART [NOVOLOG] 3 ML PEN SC SCH ×4 (06:00→18:00)
[2016-10-27] MEDS: PIPER-TAZO 3.375 GM IV (PMX) 100 ML IVPB SCH ×3 (06:03→22:20)
[2016-10-27 07:24] LABS: ADD SCAN DIFF NO
[2016-10-27 07:30] LABS: BASOPHILS % 0.3 % (0.0-2.0); EOSINOPHILS # 0.3 10^3/ul (0.0-0.5); EOSINOPHILS % 3.6 % (0.0-7.0); LYMPHOCYTES # 1.5 10^3/ul (0.8-2.9); LYMPHOCYTES % 16.5 % (15.0-51.0); MEAN CORPUSCULAR HEMOGLOBIN 28.8 pg (29.0-33.0); MEAN CORPUSCULAR HGB CONC 31.3 g/dl (32.0-37.0); MEAN CORPUSCULAR VOLUME 92.2 fl (82.0-101.0); MEAN PLATELET VOLUME 9.4 fl (7.4-10.4); MONOCYTE # 0.8 10^3/ul (0.3-0.9); MONOCYTES % 9.3 % (0.0-11.0); NEUTROPHILS % 68.7 % (39.0-77.0); PLATELET COUNT 370 10^3/UL (140-415); RED BLOOD COUNT 3.47 10^6/ul (4.70-6.10); RED CELL DISTRIBUTION WIDTH 16.9 % (11.5-14.5); WHITE BLOOD COUNT 8.8 10^3/ul (4.8-10.8)
[2016-10-27 07:50] LABS: POTASSIUM 4.1 mmol/L (3.5-5.1)
[2016-10-27 07:53] LABS: CREATININE 0.46 mg/dl (0.61-1.24)
[2016-10-27 07:54] LABS: CALCIUM 8.6 mg/dl (8.4-10.2)
[2016-10-27 07:58] LABS: MAGNESIUM 2.2 mg/dl (1.7-2.5)
[2016-10-27] MEDS ORDERED: AMIKACIN IVPB SCH (09:00)
[2016-10-27] MEDS ORDERED: SOD CHLORIDE 0.9% IVPB SCH (09:00)
[2016-10-27] MEDS: AMLODIPINE 5 MG TAB GTB SCH ×2 (09:00→09:48)
[2016-10-27] MEDS: METOPROLOL 25 MG TAB GTB SCH ×2 (09:00→20:50)
[2016-10-27] MEDS: AMIODARONE 200 MG TAB GTB SCH (09:00)
[2016-10-27] MEDS: LACTOBACILLUS RHAMNOSUS CAP GTB SCH ×2 (09:09→20:49)
[2016-10-27] MEDS: FLUCONAZOLE 100 MG TAB PO SCH (09:09)
[2016-10-27] MEDS: MAGNESIUM HYDROXIDE 30ML CUP GTB SCH (09:09)
[2016-10-27] MEDS: NYSTATIN SUSP 5 ML CUP PO SCH ×4 (09:09→20:49)
[2016-10-27] MEDS: BACLOFEN 10 MG TAB GTB SCH ×3 (09:09→20:49)
[2016-10-27] MEDS: CHLORHEXIDINE GLUCONATE 15 ML UD CUP MM SCH ×2 (09:09→20:49)
[2016-10-27] MEDS: TAMSULOSIN (SR) 0.4 MG CAP PO SCH (09:09)
[2016-10-27] MEDS: ENOXAPARIN 40 MG/0.4 ML SYG SC SCH (09:18)
[2016-10-27] MEDS: ASCORBIC ACID 500 MG TAB GTB SCH (09:22)
[2016-10-27] MEDS: NYSTATIN 30 GM POWDER BTL TOP SCH ×2 (09:23→20:49)
[2016-10-27] MEDS: BUDESONIDE (NEB) 0.5MG/2ML AMP HHN SCH ×2 (09:35→19:23)
--- NOTE | 2016-10-27 10:58 | PN ---
Date/Time of Note Date/Time of Note DATE: 10/27/16 TIME: 10:51 Assessment/Plan VTE Prophylaxis VTE Prophylaxis Intervention: LMWH Lines/Catheters IV Catheter Type (from Nrs): Peripheral IV Urinary Cath still in place: No (Condom catheter) Assessment/Plan Assessment/Plan 86-year-old male with: 1. Acute on chronic respiratory failure, actually had episode of respiratory arrest requiring CPR, but rapidly resuscitated within 1 minute at Subacute facility, per Son had previous episodes also at other SNF CT angiogram negative for PE Continue nebulizer treatment. Respi cx with Carbapenemase producing Kliebsiella Pneumoniae and also Pseudomonas. Repeat Sputum cx seems to be growing the same, Ok with ID to discharge with 1 more week of abx (total 14 days) on Zosyn and Amikacin and also Diflucan for thrush. Continue aggressive pulmonary toilet and much improved with scant secretions currently and CXR better currently 2. Healthcare-associated Pneumonia versus ventilator-associated pneumonia with MDR and carbapenem resistant Klebsiella in resp cx ... CTA negative for PE and confirming atelectasis +PNA Contact isolation. Per ID continue Zosyn and Amikacin. Much less secretions per RN and RT Repeat CXR unchanged since CT chest done. All in all improvement of Left lung infiltrate. 3. Chronic obstructive pulmonary disease also seen on CTA chest at least moderate to severe COPD Continue nebulizer treatments and abx Already on ventilatory support s/p trach, FiO2 down to 35%. 4. Paroxysmal atrial fibrillation, currently in sinus rhythm. In SR and on Amiodarone and metoprolol. 5. Status post cervical spine decompressive laminectomy, multilevel, C2 -C7 laminectomy and C2-T2 posterior fusion Unfortunately quadriparetic, status post respiratory failure, now trached, on ventilator. Resume physical therapy once the patient is more stable, Continue cervical collar, per records from SNF, the patient has it removed when eating and also when bathing and also for skin check which will be continued here. Will clarify the length of time the cervical collar needs to stay in place with the longterm facility staff. 6. Status post PEG tube placement for feeding. Continue Tube feeding and free water. Monitor electrolytes, Na better. 7. Benign prostatic hypertrophy. Continue Flomax. 8. Reported history of prostate cancer. 9. Previous pulmonary embolus and pneumothorax resolved. It is unclear which side. CT angiogram chest negative for PE Continue Lovenox DVT prophylactic doses. 10. Thrush: On Diflucan and Nystatin to be added Prophylaxis. Protonix for GI prophylaxis and Lovenox for deep venous thrombosis prophylaxis. DISPOSITION: Appreciate ID recs, continue IV antibiotics and Pulmonary toilet. D/c plan to subacute today if isolation bed available on 1 additional week of abx Subjective 24 Hr Interval Summary Free Text/Dictation Patient seems back to baseline and on apprppriate abx regimen now Discussed with ID, ok to d/c on 1 more week of abx Need good respiratory care at Subacute to avoid repeated admission for obstructive PNA Exam/Review of Systems Vital Signs Vitals Vital Signs Date Time Temp Pulse Resp B/P Pulse Ox O2 Delivery O2 Flow Rate FiO2 10/27/16 09:00 51 14 99 35 10/27/16 08:29 97.8 117/58 10/23/16 10:00 Mechanical Ventilator Intake and Output 10/26/16 10/26/16 10/27/16 15:00 23:00 07:00 Intake Total 660 ml 530 ml Output Total 400 ml 650 ml Balance 260 ml -120 ml Exam Constitutional: alert, frail, oriented, other (quadriparetic ) Respiratory: diminished breath sounds (Left base much improved ), other (on Vent with FiO2 down to 35%) Cardiovascular: nl pulses, regular rate and rhythm Gastrointestinal: non-tender, soft Musculoskeletal: nl extremities to inspection Extremities: normal pulses, other (no edema, clubbing or cyanosis ) Neurological: BDC MANAGER II-XII intact, nl mental status, other (trached, quadriparesis ) Results Result Diagram: 10/27/16 0644 10/27/16 0644 Results 24 hrs Laboratory Tests Test 10/26/16 13:00 10/26/16 17:20 10/27/16 00:13 10/27/16 06:06 Bedside Glucose 97 106 112 115 Test 10/27/16 06:44 White Blood Count 8.8 Red Blood Count 3.47 L Hemoglobin 10.0 L Hematocrit 32.0 L Mean Corpuscular Volume 92.2 Mean Corpuscular Hemoglobin 28.8 L Mean Corpuscular Hemoglobin Concent 31.3 L Red Cell Distribution Width 16.9 H Platelet Count 370 Mean Platelet Volume 9.4 Neutrophils % 68.7 Lymphocytes % 16.5 Monocytes % 9.3 Eosinophils % 3.6 Basophils % 0.3 Nucleated Red Blood Cells % 0.0 Neutrophils # 6.0 Lymphocytes # 1.5 Monocytes # 0.8 Eosinophils # 0.3 Basophils # 0.0 Nucleated Red Blood Cells # 0.0 Sodium Level 132 L Potassium Level 4.1 Chloride Level 98 Carbon Dioxide Level 25 Anion Gap 13 Blood Urea Nitrogen 12 Creatinine 0.46 L Glucose Level 105 Calcium Level 8.6 Phosphorus Level 3.0 Magnesium Level 2.2 Medications Medications Current Medications Amiodarone HCl (Cordarone) 200 mg DAILY GTB Last administered on 10/26/16 08: 54; Admin Dose 200 MG; Start 10/19/16 at 09:00 Amlodipine Besylate (Norvasc) 5 mg DAILY GTB Last administered on 10/27/16 09: 48; Admin Dose 5 MG; Start 10/19/16 at 09:00 Bisacodyl (Dulcolax Supp) 10 mg PRN PRN ID CONSTIPATION; Start 10/18/16 at 23:00 Chlorhexidine Gluconate (Peridex) 15 ml Q12 MM Last administered on 10/27/16 09:09; Admin Dose 15 ML; Start 10/19/16 at 09:00 Clonidine (Catapres) 0.1 mg Q6 PRN GTB ELEVATED BLOOD PRESSURE>150; Start at 23:00 Enoxaparin Sodium (Lovenox) 40 mg DAILY SC Last administered on 10/27/16 09:18 ; Admin Dose 40 MG; Start 10/19/16 at 09:00 Magnesium Hydroxide (Milk Of Mag) 30 ml DAILY GTB Last administered on 09:09; Admin Dose 30 ML; Start 10/19/16 at 09:00 Metoprolol Tartrate (Lopressor) 12.5 mg BID GTB Last administered on 10/26/16 20:49; Admin Dose 12.5 MG; Start 10/19/16 at 09:00 Sodium Biphosphate/ Sodium Phosphate (Fleet Enema) 133 ml DAILY PRN ID CONSTIPATION; Start 10/18/16 at 23:00 Tamsulosin HCl (Flomax) 0.4 mg DAILY PO Last administered on 10/27/16 09:09; Admin Dose 0.4 MG; Start 10/19/16 at 09:00 Tramadol HCl 50 mg 50 mg Q6 PRN GTB SEVERE PAIN LEVEL 7-10 Last administered on 10/26/16 11:47; Admin Dose 50 MG; Start 10/18/16 at 23:00 Piperacillin Sod/ Tazobactam Sod (Zosyn 3.375gm/ 100 ml (Pmx)) 100 ml @ 200 mls /hr Q8 IVPB Last administered on 10/27/16 06:03; Admin Dose 200 MLS/HR; Start 10/19/16 at 06:00 Insulin Aspart (Novolog Insulin Pen) NOVOLOG *MODERATE* ALGORI... Q6 SC ; Start 10/19/16 at 00:00 Miscellaneous Information 1 ea NOTE XX ; Start 10/19/16 at 00:30 Glucose (Glutose) 15 gm Q15M PRN PO DECREASED GLUCOSE; Start 10/19/16 at 00:30 Glucose (Glutose) 22.5 gm Q15M PRN PO DECREASED GLUCOSE; Start 10/19/16 at 00:30 Dextrose (D50w Syringe) 25 ml Q15M PRN IV DECREASED GLUCOSE; Start 10/19/16 at 00:30 Dextrose (D50w Syringe) 50 ml Q15M PRN IV DECREASED GLUCOSE; Start 10/19/16 at 00:30 Glucagon (Glucagen) 1 mg Q15M PRN IM DECREASED GLUCOSE; Start 10/19/16 at 00:30 Glucose (Glutose) 15 gm Q15M PRN BUCCAL DECREASED GLUCOSE; Start 10/19/16 at 00: 30 Acetaminophen (Tylenol Liquid) 650 mg Q4H PRN GTB PAIN OR ELEVATED TEMP.; Start 10/19/16 at 00:30 Ascorbic Acid (Vitamin C) 500 mg DAILY GTB Last administered on 10/27/16 09:22 ; Admin Dose 500 MG; Start 10/19/16 at 09:00 Nystatin (Nystatin Powder) 1 applic BID TOP Last administered on 10/27/16 09: 23; Admin Dose 1 APPLIC; Start 10/19/16 at 11:00 Lansoprazole (Prevacid) 30 mg DAILY@06 GTB Last administered on 10/27/16 05:59 ; Admin Dose 30 MG; Start 10/22/16 at 06:00 Lactobacillus Acidophilus/ Rhamnosus (Culturelle) 1 cap BID GTB Last administered on 10/27/16 09:09; Admin Dose 1 CAP; Start 10/21/16 at 21:00 Amikacin Sulfate (Amikacin Iv Per Pharmacy) AMIKACIN PER PHARMACY NOTE XX ; Start 10/22/16 at 14:00 Fluconazole (Diflucan) 100 mg DAILY PO Last administered on 10/27/16 09:09; Admin Dose 100 MG; Start 10/23/16 at 15:00 Nystatin (Nystatin Susp) 5 ml QID PO Last administered on 10/27/16 09:09; Admin Dose 5 ML; Start 10/23/16 at 17:00 Baclofen 5 mg 5 mg TID GTB Last administered on 10/27/16 09:09; Admin Dose 5 MG; Start 10/25/16 at 15:30 Amikacin Sulfate/ Sodium Chloride (Amikacin/NS) 250 ml @ 250 mls/hr Q36H IVPB Last administered on 10/27/16 09:22; Admin Dose 250 MLS/HR; Start 10/27/16 at 09:00 BETTINA ROSE October 27, 2016 10:58
--- NOTE | 2016-10-27 11:09 | PDOCDIS ---
Discharge Instructions CONDITION Patient Condition: Stable HOME CARE INSTRUCTIONS: Special Diet: GT Feed Diabetisource ACTIVITY: Activity Restrictions: Slowly Increase Activity FOLLOW UP/APPOINTMENTS Appointments Continue Vent Aggressive pulmonary toilet Contact isolation to be maintained for Carbapenem resistant klebsiella in Sputum BETTINA ROSE October 27, 2016 11:09
--- NOTE | 2016-10-27 13:49 | CONS ---
Date/Time of Note Date/Time of Note DATE: 10/27/16 TIME: 13:49 Assessment/Plan Assessment/Plan Chief Complaint/Hosp Course SUBJECTIVE: No acute changes No fevers.Sleeping, nad MICROBIOLOGY: Sputum culture grew Klebsiella and Pseudomonas aeruginosa. INDWELLINGS: Trach, PEG, Mireles. ANTIMICROBIALS: The patient is on: 1. Amikacin. 2. Zosyn. 3. Diflucan PHYSICAL EXAMINATION: GENERAL: This is a fragile, chronically ill-appearing, elderly man who is awake , in no distress. HEENT: Head atraumatic, normocephalic. Sclerae anicteric. Buccal mucosa dry. NECK: Supple. CHEST: Chest rise is symmetrical. Breath sounds diminished to the bases. HEART: S1, S2. ABDOMEN: Soft, bowel tones present. EXTREMITIES: No cyanosis. ASSESSMENT: 1. Healthcare-associated pneumonia. 2. Status post sepsis. 3. Oral thrush. 4. Chronic respiratory failure. 5. Dysphagia. 6. 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 7. Oral thrush==> improving PLAN: The patient remains stable. Continue abx for 8 more days, monitor renal f -n, pending acute rehab [facility] staff Problems: Consultation Date/Type/Reason Admit Date/Time October 18, 2016 at 20:27 Type of Consultation: ID Exam/Review of Systems Vital Signs Vitals Vital Signs Date Time Temp Pulse Resp B/P Pulse Ox O2 Delivery O2 Flow Rate FiO2 10/27/16 12:44 48 10/27/16 11:44 97.8 18 118/69 100 10/27/16 11:20 35 10/23/16 10:00 Mechanical Ventilator Intake and Output 10/26/16 10/26/16 10/27/16 15:00 23:00 07:00 Intake Total 660 ml 530 ml Output Total 400 ml 650 ml Balance 260 ml -120 ml Results Result Diagram: 10/27/16 0644 10/27/16 0644 Results 24 hrs Laboratory Tests Test 10/26/16 17:20 10/27/16 00:13 10/27/16 06:06 10/27/16 06:44 Bedside Glucose 106 112 115 White Blood Count 8.8 Red Blood Count 3.47 L Hemoglobin 10.0 L Hematocrit 32.0 L Mean Corpuscular Volume 92.2 Mean Corpuscular Hemoglobin 28.8 L Mean Corpuscular Hemoglobin Concent 31.3 L Red Cell Distribution Width 16.9 H Platelet Count 370 Mean Platelet Volume 9.4 Neutrophils % 68.7 Lymphocytes % 16.5 Monocytes % 9.3 Eosinophils % 3.6 Basophils % 0.3 Nucleated Red Blood Cells % 0.0 Neutrophils # 6.0 Lymphocytes # 1.5 Monocytes # 0.8 Eosinophils # 0.3 Basophils # 0.0 Nucleated Red Blood Cells # 0.0 Sodium Level 132 L Potassium Level 4.1 Chloride Level 98 Carbon Dioxide Level 25 Anion Gap 13 Blood Urea Nitrogen 12 Creatinine 0.46 L Glucose Level 105 Calcium Level 8.6 Phosphorus Level 3.0 Magnesium Level 2.2 Test 10/27/16 13:21 Bedside Glucose 103 Medications Medications Current Medications Amiodarone HCl (Cordarone) 200 mg DAILY GTB Last administered on 10/26/16 08: 54; Admin Dose 200 MG; Start 10/19/16 at 09:00 Amlodipine Besylate (Norvasc) 5 mg DAILY GTB Last administered on 10/27/16 09: 48; Admin Dose 5 MG; Start 10/19/16 at 09:00 Bisacodyl (Dulcolax Supp) 10 mg PRN PRN MD CONSTIPATION; Start 10/18/16 at 23:00 Chlorhexidine Gluconate (Peridex) 15 ml Q12 MM Last administered on 10/27/16 09:09; Admin Dose 15 ML; Start 10/19/16 at 09:00 Clonidine (Catapres) 0.1 mg Q6 PRN GTB ELEVATED BLOOD PRESSURE>150; Start at 23:00 Enoxaparin Sodium (Lovenox) 40 mg DAILY SC Last administered on 10/27/16 09:18 ; Admin Dose 40 MG; Start 10/19/16 at 09:00 Magnesium Hydroxide (Milk Of Mag) 30 ml DAILY GTB Last administered on 09:09; Admin Dose 30 ML; Start 10/19/16 at 09:00 Metoprolol Tartrate (Lopressor) 12.5 mg BID GTB Last administered on 10/26/16 20:49; Admin Dose 12.5 MG; Start 10/19/16 at 09:00 Sodium Biphosphate/ Sodium Phosphate (Fleet Enema) 133 ml DAILY PRN MD CONSTIPATION; Start 10/18/16 at 23:00 Tamsulosin HCl (Flomax) 0.4 mg DAILY PO Last administered on 10/27/16 09:09; Admin Dose 0.4 MG; Start 10/19/16 at 09:00 Tramadol HCl 50 mg 50 mg Q6 PRN GTB SEVERE PAIN LEVEL 7-10 Last administered on 10/26/16 11:47; Admin Dose 50 MG; Start 10/18/16 at 23:00 Piperacillin Sod/ Tazobactam Sod (Zosyn 3.375gm/ 100 ml (Pmx)) 100 ml @ 200 mls /hr Q8 IVPB Last administered on 10/27/16 13:10; Admin Dose 200 MLS/HR; Start 10/19/16 at 06:00 Insulin Aspart (Novolog Insulin Pen) NOVOLOG *MODERATE* ALGORI... Q6 SC ; Start 10/19/16 at 00:00 Miscellaneous Information 1 ea NOTE XX ; Start 10/19/16 at 00:30 Glucose (Glutose) 15 gm Q15M PRN PO DECREASED GLUCOSE; Start 10/19/16 at 00:30 Glucose (Glutose) 22.5 gm Q15M PRN PO DECREASED GLUCOSE; Start 10/19/16 at 00:30 Dextrose (D50w Syringe) 25 ml Q15M PRN IV DECREASED GLUCOSE; Start 10/19/16 at 00:30 Dextrose (D50w Syringe) 50 ml Q15M PRN IV DECREASED GLUCOSE; Start 10/19/16 at 00:30 Glucagon (Glucagen) 1 mg Q15M PRN IM DECREASED GLUCOSE; Start 10/19/16 at 00:30 Glucose (Glutose) 15 gm Q15M PRN BUCCAL DECREASED GLUCOSE; Start 10/19/16 at 00: 30 Acetaminophen (Tylenol Liquid) 650 mg Q4H PRN GTB PAIN OR ELEVATED TEMP.; Start 10/19/16 at 00:30 Ascorbic Acid (Vitamin C) 500 mg DAILY GTB Last administered on 10/27/16 09:22 ; Admin Dose 500 MG; Start 10/19/16 at 09:00 Nystatin (Nystatin Powder) 1 applic BID TOP Last administered on 10/27/16 09: 23; Admin Dose 1 APPLIC; Start 10/19/16 at 11:00 Lansoprazole (Prevacid) 30 mg DAILY@06 GTB Last administered on 10/27/16 05:59 ; Admin Dose 30 MG; Start 10/22/16 at 06:00 Lactobacillus Acidophilus/ Rhamnosus (Culturelle) 1 cap BID GTB Last administered on 10/27/16 09:09; Admin Dose 1 CAP; Start 10/21/16 at 21:00 Amikacin Sulfate (Amikacin Iv Per Pharmacy) AMIKACIN PER PHARMACY NOTE XX ; Start 10/22/16 at 14:00 Fluconazole (Diflucan) 100 mg DAILY PO Last administered on 10/27/16 09:09; Admin Dose 100 MG; Start 10/23/16 at 15:00 Nystatin (Nystatin Susp) 5 ml QID PO Last administered on 10/27/16 13:08; Admin Dose 5 ML; Start 10/23/16 at 17:00 Baclofen 5 mg 5 mg TID GTB Last administered on 10/27/16 13:10; Admin Dose 5 MG; Start 10/25/16 at 15:30 Amikacin Sulfate/ Sodium Chloride (Amikacin/NS) 250 ml @ 250 mls/hr Q36H IVPB Last administered on 10/27/16 09:22; Admin Dose 250 MLS/HR; Start 10/27/16 at 09:00 JOSE DAVID NP October 27, 2016 13:49
[2016-10-28] VITALS (19 sets, daily range): BP systolic 130–144; BP diastolic 62–66; PULSE 51–67; RESP 14–18
[2016-10-28] MEDS: PIPER-TAZO 3.375 GM IV (PMX) 100 ML IVPB SCH ×2 (05:49→15:13)
[2016-10-28] MEDS: LANSOPRAZOLE 30 MG CAP GTB SCH (05:49)
[2016-10-28] MEDS: INSULIN ASPART [NOVOLOG] 3 ML PEN SC SCH ×4 (05:52→17:48)
[2016-10-28] MEDS: BUDESONIDE (NEB) 0.5MG/2ML AMP HHN SCH ×2 (07:42→19:25)
[2016-10-28] MEDS: TAMSULOSIN (SR) 0.4 MG CAP PO SCH (09:58)
[2016-10-28] MEDS: AMIODARONE 200 MG TAB GTB SCH (09:58)
[2016-10-28] MEDS: NYSTATIN 30 GM POWDER BTL TOP SCH (09:58)
[2016-10-28] MEDS: ASCORBIC ACID 500 MG TAB GTB SCH (09:58)
[2016-10-28] MEDS: FLUCONAZOLE 100 MG TAB PO SCH (09:59)
[2016-10-28] MEDS: BACLOFEN 10 MG TAB GTB SCH ×2 (10:00→12:16)
[2016-10-28] MEDS: LACTOBACILLUS RHAMNOSUS CAP GTB SCH (10:00)
[2016-10-28] MEDS: AMLODIPINE 5 MG TAB GTB SCH (10:00)
[2016-10-28] MEDS: METOPROLOL 25 MG TAB GTB SCH (10:01)
[2016-10-28] MEDS: MAGNESIUM HYDROXIDE 30ML CUP GTB SCH (10:01)
[2016-10-28] MEDS: CHLORHEXIDINE GLUCONATE 15 ML UD CUP MM SCH (10:01)
[2016-10-28] MEDS: NYSTATIN SUSP 5 ML CUP PO SCH ×3 (10:01→17:48)
[2016-10-28] MEDS: ENOXAPARIN 40 MG/0.4 ML SYG SC SCH (10:12)
--- NOTE | 2016-10-28 14:14 | PN ---
Date/Time of Note Date/Time of Note DATE: 10/28/16 TIME: 13:56 Assessment/Plan VTE Prophylaxis VTE Prophylaxis Intervention: LMWH Lines/Catheters IV Catheter Type (from Nrs): Peripheral IV Urinary Cath still in place: No (condom cath) Assessment/Plan Assessment/Plan 86-year-old male with: 1. Acute on chronic respiratory failure, actually had episode of respiratory arrest requiring CPR, but rapidly resuscitated within 1 minute at Subacute facility, per Son had previous episodes also at other SNF/subacute CT angiogram negative for PE Continue nebulizer treatment. Respi cx with Carbapenemase producing Kliebsiella Pneumoniae and also Pseudomonas. Repeat Sputum cx seems to be growing the same, Ok with ID to discharge with 1 more week of abx (total 14 days) on Zosyn and Amikacin and also Diflucan for thrush. Continue aggressive pulmonary toilet and much improved with less secretions currently, on Q4 hrs sectioning pattern and latest CXR much better. 2. Healthcare-associated Pneumonia versus ventilator-associated pneumonia with MDR and carbapenem resistant Klebsiella in resp cx ... CTA negative for PE and confirming atelectasis +PNA Contact isolation. Per ID continue Zosyn and Amikacin. Much less secretions per RN and RT, Q4 suctioning Repeat CXR unchanged since CT chest done. All in all improvement of Left lung infiltrate. 3. Chronic obstructive pulmonary disease also seen on CTA chest at least moderate to severe COPD Continue nebulizer treatments and abx Already on ventilatory support s/p trach, FiO2 down to 35%. 4. Paroxysmal atrial fibrillation, currently in sinus rhythm. In SR and on Amiodarone and metoprolol. 5. Status post cervical spine decompressive laminectomy, multilevel, C2 -C7 laminectomy and C2-T2 posterior fusion Unfortunately quadriparetic, status post respiratory failure, now trached, on ventilator. Resume physical therapy once the patient is more stable, Continue cervical collar, per records from SNF, the patient has it removed when eating and also when bathing and also for skin check which will be continued here. Will clarify the length of time the cervical collar needs to stay in place with the half-way facility staff. 6. Status post PEG tube placement for feeding. Continue Tube feeding and free water. Monitor electrolytes, Na better. 7. Benign prostatic hypertrophy. Continue Flomax. 8. Reported history of prostate cancer. 9. Previous pulmonary embolus and pneumothorax resolved. It is unclear which side. CT angiogram chest negative for PE Continue Lovenox DVT prophylactic doses. 10. Thrush: On Diflucan and Nystatin to be added Prophylaxis. Protonix for GI prophylaxis and Lovenox for deep venous thrombosis prophylaxis. DISPOSITION: Appreciate ID recs, continue IV antibiotics and Pulmonary toilet. D/c plan to subacute when isolation bed available on 1 additional week of abx Subjective 24 Hr Interval Summary Free Text/Dictation Patient remains the same and awaiting Subacute discharge/placement, son is appealing discharge as he wants patient in an LTAC/[facility] Clinically unchanged and stable Exam/Review of Systems Vital Signs Vitals Vital Signs Date Time Temp Pulse Resp B/P Pulse Ox O2 Delivery O2 Flow Rate FiO2 10/28/16 12:43 50 10/28/16 12:30 51 10/28/16 11:42 98.9 18 136/62 99 Intake and Output 10/27/16 10/27/16 10/28/16 15:00 23:00 07:00 Intake Total 560 ml 660 ml Output Total 250 ml 600 ml Balance 310 ml 60 ml Exam Constitutional: alert, frail, oriented Respiratory: diminished breath sounds (left base nuch improved ) Cardiovascular: nl pulses, regular rate and rhythm Gastrointestinal: non-tender, soft Musculoskeletal: other (some muscle contractures ) Extremities: normal pulses, other (no edema, clubbing or cyanosis ) Neurological: SUPERINTENDENT LANDFILL OPERATIONS II-XII intact, other (quadriparesis ) Results Result Diagram: 10/27/16 0644 10/27/16 0644 Results 24 hrs Laboratory Tests Test 10/27/16 18:39 10/28/16 00:13 10/28/16 05:52 10/28/16 12:18 Bedside Glucose 113 115 120 112 Medications Medications Current Medications Amiodarone HCl (Cordarone) 200 mg DAILY GTB Last administered on 10/28/16 09: 58; Admin Dose 200 MG; Start 10/19/16 at 09:00 Amlodipine Besylate (Norvasc) 5 mg DAILY GTB Last administered on 10/28/16 10: 00; Admin Dose 5 MG; Start 10/19/16 at 09:00 Bisacodyl (Dulcolax Supp) 10 mg PRN PRN MD CONSTIPATION; Start 10/18/16 at 23:00 Chlorhexidine Gluconate (Peridex) 15 ml Q12 MM Last administered on 10/28/16 10:01; Admin Dose 15 ML; Start 10/19/16 at 09:00 Clonidine (Catapres) 0.1 mg Q6 PRN GTB ELEVATED BLOOD PRESSURE>150; Start at 23:00 Enoxaparin Sodium (Lovenox) 40 mg DAILY SC Last administered on 10/28/16 10:12 ; Admin Dose 40 MG; Start 10/19/16 at 09:00 Magnesium Hydroxide (Milk Of Mag) 30 ml DAILY GTB Last administered on 10:01; Admin Dose 30 ML; Start 10/19/16 at 09:00 Metoprolol Tartrate (Lopressor) 12.5 mg BID GTB Last administered on 10/28/16 10:01; Admin Dose 12.5 MG; Start 10/19/16 at 09:00 Sodium Biphosphate/ Sodium Phosphate (Fleet Enema) 133 ml DAILY PRN MD CONSTIPATION; Start 10/18/16 at 23:00 Tamsulosin HCl (Flomax) 0.4 mg DAILY PO Last administered on 10/28/16 09:58; Admin Dose 0.4 MG; Start 10/19/16 at 09:00 Tramadol HCl 50 mg 50 mg Q6 PRN GTB SEVERE PAIN LEVEL 7-10 Last administered on 10/26/16 11:47; Admin Dose 50 MG; Start 10/18/16 at 23:00 Piperacillin Sod/ Tazobactam Sod (Zosyn 3.375gm/ 100 ml (Pmx)) 100 ml @ 200 mls /hr Q8 IVPB Last administered on 10/28/16 05:49; Admin Dose 200 MLS/HR; Start 10/19/16 at 06:00 Insulin Aspart (Novolog Insulin Pen) NOVOLOG *MODERATE* ALGORI... Q6 SC ; Start 10/19/16 at 00:00 Miscellaneous Information 1 ea NOTE XX ; Start 10/19/16 at 00:30 Glucose (Glutose) 15 gm Q15M PRN PO DECREASED GLUCOSE; Start 10/19/16 at 00:30 Glucose (Glutose) 22.5 gm Q15M PRN PO DECREASED GLUCOSE; Start 10/19/16 at 00:30 Dextrose (D50w Syringe) 25 ml Q15M PRN IV DECREASED GLUCOSE; Start 10/19/16 at 00:30 Dextrose (D50w Syringe) 50 ml Q15M PRN IV DECREASED GLUCOSE; Start 10/19/16 at 00:30 Glucagon (Glucagen) 1 mg Q15M PRN IM DECREASED GLUCOSE; Start 10/19/16 at 00:30 Glucose (Glutose) 15 gm Q15M PRN BUCCAL DECREASED GLUCOSE; Start 10/19/16 at 00: 30 Acetaminophen (Tylenol Liquid) 650 mg Q4H PRN GTB PAIN OR ELEVATED TEMP.; Start 10/19/16 at 00:30 Ascorbic Acid (Vitamin C) 500 mg DAILY GTB Last administered on 10/28/16 09:58 ; Admin Dose 500 MG; Start 10/19/16 at 09:00 Nystatin (Nystatin Powder) 1 applic BID TOP Last administered on 10/28/16 09: 58; Admin Dose 1 APPLIC; Start 10/19/16 at 11:00 Lansoprazole (Prevacid) 30 mg DAILY@06 GTB Last administered on 10/28/16 05:49 ; Admin Dose 30 MG; Start 10/22/16 at 06:00 Lactobacillus Acidophilus/ Rhamnosus (Culturelle) 1 cap BID GTB Last administered on 10/28/16 10:00; Admin Dose 1 CAP; Start 10/21/16 at 21:00 Amikacin Sulfate (Amikacin Iv Per Pharmacy) AMIKACIN PER PHARMACY NOTE XX ; Start 10/22/16 at 14:00 Fluconazole (Diflucan) 100 mg DAILY PO Last administered on 10/28/16 09:59; Admin Dose 100 MG; Start 10/23/16 at 15:00 Nystatin (Nystatin Susp) 5 ml QID PO Last administered on 10/28/16 12:16; Admin Dose 5 ML; Start 10/23/16 at 17:00 Baclofen 5 mg 5 mg TID GTB Last administered on 10/28/16 12:16; Admin Dose 5 MG; Start 10/25/16 at 15:30 Amikacin Sulfate/ Sodium Chloride (Amikacin/NS) 250 ml @ 250 mls/hr Q36H IVPB Last administered on 10/27/16 09:22; Admin Dose 250 MLS/HR; Start 10/27/16 at 09:00 BETTINA ROSE October 28, 2016 14:06
--- NOTE | 2016-10-28 14:56 | CONS ---
Date/Time of Note Date/Time of Note DATE: 10/28/16 TIME: 14:56 Assessment/Plan Assessment/Plan Chief Complaint/Hosp Course SUBJECTIVE: No acute changes. Alert, looks comfortable, no fevers MICROBIOLOGY: Sputum culture grew Klebsiella and Pseudomonas aeruginosa. INDWELLINGS: Trach, PEG, Mireles. ANTIMICROBIALS: The patient is on: 1. Amikacin. 2. Zosyn. 3. Diflucan PHYSICAL EXAMINATION: GENERAL: This is a fragile, chronically ill-appearing, elderly man who is awake , in no distress. HEENT: Head atraumatic, normocephalic. Sclerae anicteric. Buccal mucosa dry. NECK: Supple. CHEST: Chest rise is symmetrical. Breath sounds diminished to the bases. HEART: S1, S2. ABDOMEN: Soft, bowel tones present. EXTREMITIES: No cyanosis. ASSESSMENT: 1. Healthcare-associated pneumonia. 2. Status post sepsis. 3. Oral thrush. 4. Chronic respiratory failure. 5. Dysphagia. 6. 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 7. Oral thrush==> improving PLAN: The patient remains stable. Continue abx for 7 more days, monitor renal f -n, pending acute rehab [facility] staff Problems: Consultation Date/Type/Reason Admit Date/Time October 18, 2016 at 20:27 Type of Consultation: ID Exam/Review of Systems Vital Signs Vitals Vital Signs Date Time Temp Pulse Resp B/P Pulse Ox O2 Delivery O2 Flow Rate FiO2 10/28/16 14:07 58 14 98 35 10/28/16 11:42 98.9 136/62 Intake and Output 10/27/16 10/27/16 10/28/16 14:59 22:59 06:59 Intake Total 560 ml 660 ml Output Total 250 ml 600 ml Balance 310 ml 60 ml Results Result Diagram: 10/27/16 0644 10/27/16 0644 Results 24 hrs Laboratory Tests Test 10/27/16 18:39 10/28/16 00:13 10/28/16 05:52 10/28/16 12:18 Bedside Glucose 113 115 120 112 Medications Medications Current Medications Amiodarone HCl (Cordarone) 200 mg DAILY GTB Last administered on 10/28/16t 09: 58; Admin Dose 200 MG; Start 10/19/16 at 09:00 Amlodipine Besylate (Norvasc) 5 mg DAILY GTB Last administered on 10/28/16 10: 00; Admin Dose 5 MG; Start 10/19/16 at 09:00 Bisacodyl (Dulcolax Supp) 10 mg PRN PRN [place] CONSTIPATION; Start 10/18/16 at 23:00 Chlorhexidine Gluconate (Peridex) 15 ml Q12 MM Last administered on 10/28/16 10:01; Admin Dose 15 ML; Start 10/19/16 at 09:00 Clonidine (Catapres) 0.1 mg Q6 PRN GTB ELEVATED BLOOD PRESSURE>150; Start at 23:00 Enoxaparin Sodium (Lovenox) 40 mg DAILY SC Last administered on 10/28/16 10:12 ; Admin Dose 40 MG; Start 10/19/16 at 09:00 Magnesium Hydroxide (Milk Of Mag) 30 ml DAILY GTB Last administered on 10:01; Admin Dose 30 ML; Start 10/19/16 at 09:00 Metoprolol Tartrate (Lopressor) 12.5 mg BID GTB Last administered on 10/28/16 10:01; Admin Dose 12.5 MG; Start 10/19/16 at 09:00 Sodium Biphosphate/ Sodium Phosphate (Fleet Enema) 133 ml DAILY PRN [place] CONSTIPATION; Start 10/18/16 at 23:00 Tamsulosin HCl (Flomax) 0.4 mg DAILY PO Last administered on 10/28/16 09:58; Admin Dose 0.4 MG; Start 10/19/16 at 09:00 Tramadol HCl 50 mg 50 mg Q6 PRN GTB SEVERE PAIN LEVEL 7-10 Last administered on 10/26/16 11:47; Admin Dose 50 MG; Start 10/18/16 at 23:00 Piperacillin Sod/ Tazobactam Sod (Zosyn 3.375gm/ 100 ml (Pmx)) 100 ml @ 200 mls /hr Q8 IVPB Last administered on 10/28/16 05:49; Admin Dose 200 MLS/HR; Start 10/19/16 at 06:00 Insulin Aspart (Novolog Insulin Pen) NOVOLOG *MODERATE* ALGORI... Q6 SC ; Start 10/19/16 at 00:00 Miscellaneous Information 1 ea NOTE XX ; Start 10/19/16 at 00:30 Glucose (Glutose) 15 gm Q15M PRN PO DECREASED GLUCOSE; Start 10/19/16 at 00:30 Glucose (Glutose) 22.5 gm Q15M PRN PO DECREASED GLUCOSE; Start 10/19/16 at 00:30 Dextrose (D50w Syringe) 25 ml Q15M PRN IV DECREASED GLUCOSE; Start 10/19/16 at 00:30 Dextrose (D50w Syringe) 50 ml Q15M PRN IV DECREASED GLUCOSE; Start 10/19/16 at 00:30 Glucagon (Glucagen) 1 mg Q15M PRN IM DECREASED GLUCOSE; Start 10/19/16 at 00:30 Glucose (Glutose) 15 gm Q15M PRN BUCCAL DECREASED GLUCOSE; Start 10/19/16 at 00: 30 Acetaminophen (Tylenol Liquid) 650 mg Q4H PRN GTB PAIN OR ELEVATED TEMP.; Start 10/19/16 at 00:30 Ascorbic Acid (Vitamin C) 500 mg DAILY GTB Last administered on 10/28/16 09:58 ; Admin Dose 500 MG; Start 10/19/16 at 09:00 Nystatin (Nystatin Powder) 1 applic BID TOP Last administered on 10/28/16 09: 58; Admin Dose 1 APPLIC; Start 10/19/16 at 11:00 Lansoprazole (Prevacid) 30 mg DAILY@06 GTB Last administered on 10/28/16 05:49 ; Admin Dose 30 MG; Start 10/22/16 at 06:00 Lactobacillus Acidophilus/ Rhamnosus (Culturelle) 1 cap BID GTB Last administered on 10/28/16 10:00; Admin Dose 1 CAP; Start 10/21/16 at 21:00 Amikacin Sulfate (Amikacin Iv Per Pharmacy) AMIKACIN PER PHARMACY NOTE XX ; Start 10/22/16 at 14:00 Fluconazole (Diflucan) 100 mg DAILY PO Last administered on 10/28/16 09:59; Admin Dose 100 MG; Start 10/23/16 at 15:00 Nystatin (Nystatin Susp) 5 ml QID PO Last administered on 10/28/16 12:16; Admin Dose 5 ML; Start 10/23/16 at 17:00 Baclofen 5 mg 5 mg TID GTB Last administered on 10/28/16 12:16; Admin Dose 5 MG; Start 10/25/16 at 15:30 Amikacin Sulfate/ Sodium Chloride (Amikacin/NS) 250 ml @ 250 mls/hr Q36H IVPB Last administered on 10/27/16t 09:22; Admin Dose 250 MLS/HR; Start 10/27/16 at 09:00 JOSE DAVID NP October 28, 2016 14:56
== END 2016-10-28 20:07 | DRG 870 ==
LOC: E/R 20:24 → TEL 20:27
PROVIDERS: ADMIT Internal Medicine; ATTEND Internal Medicine
PROC: 5A1955Z Respiratory Ventilation, Greater than 96 Consecutive Hours (ICD-10-PCS; principal; 2016-10-18)
PROC: 4A033R1 Measurement of Arterial Saturation, Peripheral, Percutaneous Approach (ICD-10-PCS; 2016-10-18)
DX: A41.9 Sepsis, unspecified organism (principal); J96.20 Acute and chronic respiratory failure, unspecified whether with hypoxia or hypercapnia; J44.0 Chronic obstructive pulmonary disease with (acute) lower respiratory infection; J15.1 Pneumonia due to Pseudomonas; J15.0 Pneumonia due to Klebsiella pneumoniae; G82.50 Quadriplegia, unspecified; Z93.0 Tracheostomy status; I48.0 Paroxysmal atrial fibrillation; B37.0 Candidal stomatitis; R65.20 Severe sepsis without septic shock; I10 Essential (primary) hypertension; M48.02 Spinal stenosis, cervical region; Z93.4 Other artificial openings of gastrointestinal tract status; N40.0 Benign prostatic hyperplasia without lower urinary tract symptoms; R13.10 Dysphagia, unspecified; Z86.73 Personal history of transient ischemic attack (TIA), and cerebral infarction without residual deficits; Z86.711 Personal history of pulmonary embolism; Z85.46 Personal history of malignant neoplasm of prostate
CPT/HCPCS: 36600; 71010; 71275; 80048; 80053; 80150; 80202; 81003; 82803; 82962; 83036; 83605; 83735; 84100; 84484; 85025; 85610; 85730; 87040; 87070; 87086; 93005; 94002; 94003; 94640; 96374; 96375; A4310; J0278; J0692; J1650; J1815; J2543; J3370; J7030; J7050; Q9967

== ENCOUNTER 2017-02-17 16:30 | Emergency (ER) | payer OTHER, MEDICAID ==
[~2017-02-17] VITALS: Ht 154.9 cm; Wt 50.6 kg
[~2017-02-17 16:30] MED LIST changes: -CEFEPIME 2GM/50 ML (PMX) 50 ML IVPB STA; -SODIUM CHLORIDE 0.9% 1L BAG IV* STA; -VANCOMYCIN 1 GM (PMX) 250 ML IVPB ONE
[2017-02-17 16:33] VITALS: Ht 154.9 cm; Wt 50.6 kg
[2017-02-17] MEDS ORDERED: DIATR MEGLU/DIATRIZOATE SODIUM 120 ML BTL ONE (17:09)
--- NOTE | 2017-02-17 17:30 | ERD ---
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 It appears the G-tube was dislodged, it was replaced at the intermediate facility with another tube and the patient was transferred to the emergency room. No reported fevers or chills. Vomiting. Remainder of HPI is limited. ROS All systems reviewed and are negative except as per history of present illness. Medications Home Meds Reported Medications Tramadol Hcl* (Ultram*) 50 Mg Tablet, 50 MG GTB Q6 Y for SEVERE PAIN LEVEL 7-10 , TAB 10/18/16 Acetaminophen* (Acetaminophen*) 650 Mg Tablet, 650 MG GTB 30 MIN PRIOR Y for PAIN AND OR ELEVATED TEMP, #30 TAB 30 MIN PRIOR TO TRACH CHANGE 10/18/16 Acetaminophen* (Acetaminophen*) 650 Mg Tablet, 650 MG GTB Q4 Y for PAIN AND OR ELEVATED TEMP, #30 TAB 10/18/16 Acetaminophen* (Acetaminophen*) 650 Mg Tablet, 650 MG GTB BID Y for PAIN AND OR ELEVATED TEMP, #30 TAB 10/18/16 Cran/Vitc/Mannose/Inulin/Brom (Uti-Stat Liquid) 3,875 Mg/30 Ml Liquid, 3875 MG GTB DAILY 10/18/16 Ascorbic Acid* (Vitamin C* Liq) 500 Mg/5 Ml Syrup, 500 MG GTB DAILY, ML 10/18/16 Budesonide (Pulmicort) 0.5 Mg/2 Ml Nebu, 0.5 MG INHALATION BID, #60 AMP 10/18/16 Potassium Chloride* (Potassium Chloride*) 20 Meq/15 Ml Liquid, 20 MEQ GTB DAILY , ML 10/18/16 Chlorhexidine Gluconate (Peridex) 473 Ml Mouthwash, 15 ML MM Q12, BOTTLE 10/18/16 Clonidine Hcl* (Clonidine Hcl*) 0.1 Mg Tab, 0.1 MG GTB Q6 Y for ELEVATED BLOOD PRESSURE, TAB FOR SBP ABOVE 160 10/18/16 Docusate Sodium* (Colace*) 100 Mg Capsule, 100 MG GTB BID, #60 CAP 10/18/16 Bisacodyl (Dulcolax) 10 Mg Supp.rect, 10 MG RC PRN Y for CONSTIPATION, SUPP.RECT 10/18/16 Enoxaparin Sodium* (Enoxaparin Sodium*) 40 Mg/0.4 Ml Syringe, 40 MG SC DAILY, SYR 10/18/16 Na Phos,M-B/Na Phos,Di-Ba (ENEMA READY TO USE) 135 Ml Enema, 135 ML RC PRN Y for CONSTIPATION, ENEMA 10/18/16 Tamsulosin Hcl* (Flomax*) 0.4 Mg Cap.er.24h, 0.4 MG GTB DAILY, CAP 10/18/16 Furosemide* (Furosemide*) 20 Mg Tablet, 10 MG GTB DAILY, #60 TAB 10/18/16 Metoprolol Tartrate* (Lopressor*) 25 Mg Tab, 12.5 MG GTB BID, #60 TAB HOLD FOR SBP BELOW 110 OR HR BELOW 60 10/18/16 Magnesium Hydroxide* (Milk Of Magnesia*) 400 Mg/5 Ml Oral.susp, 30 ML GTB DAILY , ML 10/18/16 Calcium Carbonate/Vitamin D3 (OYSTER SHELL 500 MG + VIT D TB) 1 Each Tablet, 1 EACH GTB DAILY, TAB 10/18/16 Pantoprazole* (Protonix*) 40 Mg Tablet.dr, 40 MG GTB DAILY, TAB 10/18/16 Baclofen* (Baclofen*) 10 Mg Tablet, 5 MG GTB Q8 Y for MUSCLE SPASMS, TAB 10/18/16 Amlodipine Besylate* (Norvasc*) 5 Mg Tablet, 5 MG GTB DAILY, TAB 10/18/16 Amiodarone Hcl* (Amiodarone Hcl*) 200 Mg Tablet, 200 MG GTB DAILY, #30 TAB 10/18/16 Albuterol Sulfate* (Albuterol Sulfate* Neb) 0.083%-3 Ml Neb, 2.5 MG NEB Q6 Y for WHEEZING AND SOB, #30 VIAL 10/18/16 Albuterol Sulfate* (Albuterol Sulfate* Neb) 0.083%-3 Ml Neb, 2.5 MG NEB Q3H Y for WHEEZING AND SOB, #30 VIAL 10/18/16 Lactobac. No.33/B.breve,Longum (Lacto-Pectin Capsule) 1 Each Capsule, 1 EACH GTB BID, CAP 10/18/16 Allergies Allergies: Coded Allergies: morphine (Unverified Allergy, Unknown, PT FAMILY MEMBER [employer] [place] [employer] HAS IT LISTED A ALLERGY, 02/17/17) PMhx/Soc Hx Respiratory Disorders: Yes (respiratory failure) Smoking Status: Never smoker FmHx Family History: No diabetes Physical Exam Vitals Vital Signs Date Time Temp Pulse Resp B/P Pulse Ox O2 Delivery O2 Flow Rate FiO2 02/17/17 16:33 97.8 87 18 112/53 99 Physical Exam General: No significant distress, chronic contractures, cachectic Head: Normocephalic, atraumatic. Eyes: Pupils equally reactive, EOM intact ENT: Moist mucous membranes Neck: Supple, no lymphadenopathy Respiratory: Lungs clear bilaterally, no distress Cardiovascular: RRR, no murmurs, rubs, or gallops Abdominal: Soft, what appears to be a TPN tube is placed within the stomach, stoma is well-appearing without drainage or discharge : Deferred MSK: Limited movement of all 4 extremities, no bony abnormalities Neurologic: Limited exam, and encephalopathic, limited movement of all 4 extremities Skin: No rash, no significant breakdown Psych: Unable to assess Results 24 hrs Current Medications Medications (Trade) Dose Ordered Sig/Nishant Route PRN Reason Start Time Stop Time Status Last Admin Dose Admin Diatrizoate Meglum/ Diatrizoate Sod (Gastrografin 66-10 Solution) 120 ml STK-MED ONCE .ROUTE 02/17/17 17:09 02/17/17 17:10 DC Procedures/MDM EKG, MONITORS, & DIAGNOSTIC IMAGING: X-ray Abdomen 1V Interpreted by me: Free Air: None Bowel Gas: Nonspecific Soft Tissue: Normal Gastrografin intraluminal PROCEDURES: G Tube Insertion: Consent: Patient nonverbal, assumed informed consent benefits outweigh the risks. Indication: Malfuncitoning G Tube G Tube Size: 16 [place] Procedure: Sterile procedure was observed. The new G-tube was checked for leaks and was lubricated. Insertion of the new G-tube through stoma was performed without complications and met no resistance. The balloon was then inflated, the tube was pulled back and plastic wheel was adjusted to the skin. The G-tube was then dressed and secured in place. A postplacement x-ray with water-soluble contrast was ordered. There were no complications and the patient tolerated the procedure well. MEDICAL DECISION MAKING: The patient has dislodged a feeding tube. No signs of infection or obstruction ER COURSE: G-tube replaced as documented above. Diagnostic imaging confirms placement. The patient is stable for discharge back to intermediate facility. I kept the patient and/or family informed of laboratory and diagnostic imaging results throughout the emergency room course. DISPOSITION PLAN: We discussed follow up with the patient's primary care doctor within 24 to 48 hours as needed. We also discussed return to the emergency room for worsening symptoms or worsening condition. Outpatient referral: None required Departure Diagnosis: Primary Impression: Encounter for feeding tube placement Condition: Stable MESSI NICE MD Feb 17, 2017 17:30
[2017-02-17] MEDS ORDERED: ACET325T33 PO (18:12)
[2017-02-17] MEDS ORDERED: ASCO500C7 GTB (18:14)
[2017-02-17] MEDS ORDERED: NA P230E RC (18:15)
[2017-02-17] MEDS ORDERED: OMEP20CA16 GTB (18:16)
[2017-02-17] MEDS ORDERED: MULT-876 GTB (18:16)
[2017-02-17] MEDS ORDERED: INSU100V3 IJ (18:21)
--- NOTE | 2017-02-17 19:04 | RADRPT ---
PROCEDURE: XR Abdomen. CLINICAL INDICATION: 86 years of age, male. Gastrostomy tube placement. TECHNIQUE: Supine AP view of the abdomen obtained following injection of Gastrografin through a ga strostomy tube COMPARISON: None available. FINDINGS: The tip of a gastrostomy tube projects over the left upper quadrant. Contrast is seen within the gas trostomy tubing and the stomach. No extraluminal contrast is visualized. Gas is seen within nondilated small and large bowel. There are no dilated loops of small bowel to s uggest a bowel obstruction. There is elevation of the left diaphragm. Multilevel degenerative changes in the spine. 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 IMPRESSION: 1. Gastrostomy tube tip in the stomach without extraluminal leakage of contrast. 2. Nonobstructive bowel gas pattern. RPTAT: HCTS Physician Faiza Date Time Electronically viewed and signed by Physician Faiza on 02/17/2017 18:33 /
[2017-02-17 21:01] VITALS: BP 149/55; PULSE 100; RESP 20; TEMP 97.8
== END 2017-02-17 21:03 ==
LOC: E/R 16:30
DX: K94.23 Gastrostomy malfunction (principal)
CPT/HCPCS: 74000